=== PATIENT | male | born 1955 | race Caucasian/White ===

== ENCOUNTER → 2016-08-09 | Outpatient (CLI) | payer OTHER ==
[~2016-08-09] MED LIST: CRS10 PO; LISI-725 PO; METO-157 PO; REVEIWED
[2016-08-09 12:23] LABS: BASO % 0.5 %; BASO ABS # 0.02 K/uL (0-0.2); COMPLETE YES; EOS % 5.7 %; HEMATOCRIT 39.7 % (42-52); IG% 0.5 %; LYMPH % 32.8 %; LYMPH ABS # 1.44 K/uL (1.2-3.4); MEAN CELL VOLUME 90.8 fL (80-100); MEAN CORPUSCULAR HEMOGLOBIN 30.4 pg (25-34); MEAN CORPUSCULAR HGB CONC 33.5 g/dl (32-36); MEAN PLATELET VOLUME 11.1 fL (7.4-10.4); NEUT % 50.5 %; PLATELET COUNT 184 K/uL (130-400); RED BLOOD COUNT 4.37 M/uL (4.7-6.1); WHITE BLOOD COUNT 4.39 K/uL (4.8-10.8)
[2016-08-09 12:30] LABS: ALT/SGPT 76 U/L (12-78); BLOOD UREA NITROGEN 16 mg/dl (7-18); BUN/CREATININE RATIO 16.1 (10-20); CALCIUM 9.1 mg/dl (8.5-10.1); CARBON DIOXIDE 26 mmol/L (21-32); CHLORIDE 105 mmol/L (98-107); CHOLESTEROL 273 mg/dl (0-200); CREATININE 0.98 mg/dl (0.60-1.40); GLUCOSE 118 mg/dl (70-99); POTASSIUM 3.6 mmol/L (3.5-5.1); SODIUM 142 mmol/L (136-145)
[2016-08-09 12:35] LABS: ALB/GLOB RATIO 1.2 (0.9-2); ALKALINE PHOSPHATASE 89 U/L (45-117); AST/SGOT 55 U/L (15-37); CHOLESTEROL/HDL RATIO 4.7; HDL CHOLESTEROL 58 mg/dl; LDL CHOLESTEROL CALCULATED 143 mg/dl; PROSTATE SPECIFIC ANTIGEN 0.499 ng/ml (0.000-4.000); TRIGLYCERIDES 359 mg/dl (0-150); VERY LOW DENSITY LIPOPROT CALC 72 mg/dl
[2016-08-09 13:10] LABS: ESTIMATED AVERAGE GLUCOSE 111 mg/dl; HA1C FLAG Normal (Normal)
== END | disposition home or self-care (01) ==
LOC: C.LABBFT 10:36
PROVIDERS: ATTEND Internal Medicine
DX: I10 Essential (primary) hypertension (principal); E78.00 Pure hypercholesterolemia, unspecified; R73.01 Impaired fasting glucose; Z12.5 Encounter for screening for malignant neoplasm of prostate; D64.9 Anemia, unspecified

== ENCOUNTER → 2017-08-08 | Outpatient (CLI) | payer OTHER ==
[2017-08-08 16:56] LABS: BASO % 0.4 %; BASO ABS # 0.02 K/uL (0-0.2); EOS ABS # 0.34 K/uL (0-0.5); HEMATOCRIT 40.5 % (42-52); HEMOGLOBIN 13.8 g/dL (14.0-18.0); IG# 0.02 K/uL (0.00-0.02); LYMPH % 22.5 %; LYMPH ABS # 1.28 K/uL (1.2-3.4); MEAN CELL VOLUME 89.8 fL (80-100); MEAN CORPUSCULAR HEMOGLOBIN 30.6 pg (25-34); MEAN CORPUSCULAR HGB CONC 34.1 g/dl (32-36); MEAN PLATELET VOLUME 11.1 fL (7.4-10.4); MONO % 8.8 %; NEUT % 61.9 %; NEUT ABS # 3.54 K/uL (1.4-6.5); PLATELET COUNT 198 K/uL (130-400); RED CELL DISTRIBUTION WIDTH CV 12.7 % (11.5-14.5); RED CELL DISTRIBUTION WIDTH SD 41.7 fL (36.4-46.3)
[2017-08-08 17:36] LABS: ALBUMIN 3.8 gm/dl (3.4-5.0); ALT/SGPT 40 U/L (12-78); AST/SGOT 24 U/L (15-37); BLOOD UREA NITROGEN 16 mg/dl (7-18); CALCIUM 9.8 mg/dl (8.5-10.1); CARBON DIOXIDE 27 mmol/L (21-32); CHOLESTEROL 202 mg/dl (0-200); CREATININE 1.03 mg/dl (0.60-1.40); GLUCOSE 113 mg/dl (70-99); POTASSIUM 4.2 mmol/L (3.5-5.1); SODIUM 137 mmol/L (136-145)
[2017-08-08 17:42] LABS: ALKALINE PHOSPHATASE 63 U/L (45-117); LDL CHOLESTEROL CALCULATED 103 mg/dl; TOTAL PROTEIN 7.7 gm/dl (6.4-8.2)
[2017-08-09 07:56] LABS: HEMOGLOBIN A1C 5.8 % (4.5-5.6)
== END | disposition home or self-care (01) ==
LOC: C.LABBFT 11:22
PROVIDERS: ATTEND Internal Medicine
DX: Z12.5 Encounter for screening for malignant neoplasm of prostate (principal); I10 Essential (primary) hypertension; E78.00 Pure hypercholesterolemia, unspecified; R73.01 Impaired fasting glucose

== ENCOUNTER 2019-10-07 20:02 | Inpatient (IN) ==
--- NOTE | 2019-10-07 21:01 | History & Physical Report ---
Date of Service October 07, 2019 Assessment & Plan (1) Acute on chronic renal insufficiency: Admit to PCU on telemetry, Vital signs every 4 hours, BNP, TSH, CBC CMP pending Replenish electrolytes as needed. Avoid taking NSAIDs and other nephrotoxic agents. Stop lisinopril and hydrochlorothiazide due to worsening renal function. Ultrasound of bilateral kidneys are pending. Consult nephrology. Continue monitoring creatinine closely. Started gentle IV fluid hydration for only 1 L at 80 cc/h normal saline. DVT prophylaxis SCDs and teds, patient is ambulatory. Full code Present on Admission?: Yes (2) Hypertension: Stop lisinopril and hydrochlorothiazide due to worsening renal function. Started hydralazine 10 mg p.o. 4 times daily as needed for elevated blood pressure systolic over 160 and diastolic over 90. Monitor blood pressure every 4 hours as per unit. Heart healthy low-sodium diet. TTE pending. EKG pending. Present on Admission?: Yes (3) Anemia: Hemoglobin 10.5 and hematocrit 31.3. Could be megaloblastic anemia since MPV in the upper limits 10.8 versus mixed with chronic renal insufficiency. Iron study pending. Patient never had colonoscopy done. Would recommend colonoscopy as an outpatient after discharge. Fecal occult blood pending. Present on Admission?: Yes (4) Gout: Stable at this time. Continue allopurinol 100 mg p.o. daily Present on Admission?: Yes History of Present Illness Chief Complaint: Acute on chronic kidney insufficiency Primary Care Provider: Anthony Figueredo MD The patient is a 64 years old male with past medical history of gout, upper back injury, uncontrolled hypertension and CKD stage III that has been worsening since September 2019. Prior to September 2019 there are only 2 measurements of creatinine going back to 2018 which are pretty much upper limit of normal and worsening since August 08, 2017. Patient reports no complaint. He was sent as a direct admit from his PCP office who was concerned about patient worsening kidney function and/or failure. Reports never being smoker. He also reports that he was taking lots of NSAIDs for his back pain. Patient denies fever, chills, headache, chest pain, shortness of breath, abdominal pain, frequency, urgency. Labs are reviewed from October 06, 2019 which shows sodium 08/04/1933, potassium 4.1, chloride 107, carbon dioxide 19, anion gap 11, BUN 86, creatinine 4.97, GFR 11.6, glucose 145, urine which is clear and negative for nitrates bilirubin urobilinogen leukocyte esterase and protein. Chest x-rays are done and they show cardiomediastinal and hilar silhouette are within normal limits no pneumothorax, pleural effusion, focal airspace consolidation or overt pulmonary edema bones of the chest appear grossly intact. No acute process. Today labs are pending. Decision was made to admit patient for worsening chronic kidney insufficiency to PCU on telemetry and for further evaluation and treatment. Allergies Allergy/AdvReac Type Severity Reaction Status Date / Time No Known Allergies Allergy Mild Verified 09/13/19 12:18 Home Medications Home Medications Medication Instructions Recorded Confirmed Type hydrochlorothiazide 25 mg tablet 25 mg PO DAILY #90 tab 04/21/19 10/01/19 Rx lisinopril 30 mg tablet 30 mg PO DAILY #90 tab 06/11/19 10/01/19 Rx allopurinol 100 mg tablet 100 mg PO DAILY #30 tab 08/16/19 10/01/19 Rx atorvastatin 80 mg tablet 80 mg PO QPM #90 tab 09/02/19 10/01/19 Rx hydrocodone 5 mg-acetaminophen 325 2 tab PO DAILY PRN #15 tab 09/15/19 10/01/19 Rx mg tablet ciprofloxacin HCl 250 mg tablet 250 mg PO BID #14 tab 10/01/19 10/01/19 Rx methylprednisolone 4 mg tablets in 4 mg PO .as directed #21 ea 10/04/19 Rx a dose pack tramadol 50 mg tablet 50 mg PO TID PRN #60 tab 10/04/19 Rx Past Med/Surg History Medical History Gout attack Gout of foot Olecranon bursitis, right elbow Family History Mother Coronary heart disease Hypertension Father Coronary heart disease Brother Migraine headache Denies family history of Ovarian cancer Prostate cancer Myocardial infarction Breast cancer Colonic polyp Social History Preferred Language: Kuwaiti Communication Ability: Effective Visual Impairment: No Limitations Hearing Ability: Normal Claims Coordinator Required: No Beliefs That Will Affect Care: None marital status: Current Living Situation: Alone current occupational status: employed Feels Safe at Home: Yes Safety Concerns: Feels Safe At This Time Smoking Status: Former smoker Do You Dip or Chew Tobacco: No ; Second Hand Exposure: No ; Tobacco Cessation Education Requested by Patient: No Hx Alcohol Use: No Hx Substance Use: No Dental Care, Regularly: Yes Physical Activity Frequency: 3-4 Times per Week Review of Systems Review of Systems: All systems reviewed & are unremarkable except as noted in HPI & below Physical Exam Constitutional: WD/WN, vitals as above well developed, well nourished and + thin Eyes: PERRL, conjunctivae normal, anicteric sclerae ENMT: external ear and nose normal, oropharynx normal Neck: trachea midline, no thyromegaly Respiratory: normal respiratory effort, lungs clear to auscultation Cardiovascular: Rate/Rhythm: regular rate and regular rhythm Heart Sounds: normal S1 and normal S2 Vessels: dorsalis pedis pulses present Gastrointestinal (Abdomen): normal bowel sounds, soft, nontender, no hepatosplenomegaly Musculoskeletal: no cyanosis or clubbing, extremities motor strength 5/5 Skin: no rashes, warm and dry Neurologic: Complains of middle back pain which is chronic in nature. Psychiatric: A+Ox3, euthymic affect Lymphatic: no cervical or axillary lymphadenopathy Code Status & VTE Plan Code Status Full code VTE Prophylaxis Plan VTE Prophylaxis will be ordered: Yes PG Care Time/CCT Total # of Minutes Spent Total Time Spent with Patient: Total time spent is greater than 50% in coordination of care (as documented) at patient's floor/unit and/or counseling patient: Coding Level of Care Code 30271 Initial Inpt Care Lvl 3 Diagnoses Acute on chronic renal insufficiency N28.9; N18.9 Hypertension I10 Anemia D64.9 Gout M10.9
[2019-10-07] MEDS ORDERED: SODIUM CHLORIDE 0.9% 1000ML 1,000 ML IV SCH (21:09)
[2019-10-07] MEDS ORDERED: MAGNESIUM HYDROXIDE SUSP 30 ML UDC PO PRN (21:09)
[2019-10-07] MEDS ORDERED: TRAMADOL HCL 50 MG TABLET PO PRN (21:09)
[2019-10-07] MEDS ORDERED: ACETAMINOPHEN 325 MG TAB PO PRN (21:09)
[2019-10-07] MEDS ORDERED: BETAMETH SOD PHOS/ACETATE IA 6 MG/ML IA SCH (21:09)
[2019-10-07] MEDS ORDERED: ALUMINUM/MAGNESIUM SUSP 30 ML UDC PO PRN (21:09)
[2019-10-07] MEDS ORDERED: POLYETHYLENE (MIRALAX) 17 GM PACK PO PRN (21:09)
[2019-10-07] MEDS ORDERED: HydrALAZINE 10 MG TAB PO PRN (21:09)
--- NOTE | 2019-10-07 21:25 | XRay Report ---
XR chest 1V portable HISTORY: 64 years-old Male survelance no acute chest complaints. Reported kidney disease. COMPARISON: Chest radiographs 07/22/2010 TECHNIQUE: Portable AP view of the chest FINDINGS: Cardiomediastinal and hilar silhouettes are within normal limits. No pneumothorax, pleural effusion, focal airspace consolidation or overt pulmonary edema. Bones of the chest appear grossly intact. IMPRESSION: No acute process. ACT 112: Negative or not required by law. The above report was generated using voice recognition software. It may contain grammatical, syntax o r spelling errors. Results electronically sent 10/07/2019 9:24 PM to: Andre Padilla MD Electronically signed by: Eloy Muñoz M.D. 10/07/2019 9:24 PM
[2019-10-07 21:39] LABS: Hematocrit (blood only) 31.3 % (42-52); Hemoglobin 10.5 g/dL (14.0-18.0); Immature Granulocytes # (auto) 0.02 K/uL (0.00-0.02); Immature Granulocytes % (auto) 0.2 %; Lymphocytes # (auto) 0.56 K/uL (1.2-3.4); Mean Corpuscular Hemoglobin 30.1 pg (25-34); Mean Corpuscular Volume 89.7 fL (80-100); Mean Platelet Volume 10.8 fL (7.4-10.4); Monocytes # (auto) 0.64 K/uL (0.11-0.59); Monocytes % (auto) 6.9 %; Neutrophils # (auto) 8.12 K/uL (1.4-6.5); Neutrophils % (auto) 86.9 %; Platelet Count 317 K/uL (130-400); RDW Coefficient of Variation 14.3 % (11.5-14.5); Red Blood Count 3.49 M/uL (4.7-6.1); White Blood Count 9.34 K/uL (4.8-10.8)
[2019-10-07] MEDS: ATORVASTATIN 40 MG TAB PO SCH (21:56)
[2019-10-07] MEDS: METOPROLOL TARTRATE 25 MG TAB PO SCH (22:01)
[2019-10-07 22:07] LABS: Alanine Aminotransferase 20 U/L (12-78); Albumin Globulin Ratio 1.1 (0.9-2); Albumin Level 4.2 gm/dl (3.4-5.0); Alkaline Phosphatase 69 U/L (45-117); Aspartate Aminotransferase 14 U/L (15-37); BUN Creatinine Ratio 17.2 (10-20); Bilirubin,Total 0.3 mg/dl (0.2-1); Blood Urea Nitrogen 85 mg/dl (7-18); Calcium 9.5 mg/dl (8.5-10.1); Carbon Dioxide 20 mmol/L (21-32); Chloride 107 mmol/L (98-107); Creatinine Clr Calc Pharmacy 15.7 ml/min; Est GFR (African American) 13.2; Est GFR (Non-African American) 11.4; Globulin 3.7 gm/dl (2.5-4.0); Glucose 120 mg/dl (70-99); NT Pro B Type Natriuretic Pept 1153 pg/ml (0-900); Phosphorus 5.9 mg/dl (2.5-4.9); Potassium 4.5 mmol/L (3.5-5.1); Sodium 138 mmol/L (136-145); Total Protein 7.9 gm/dl (6.4-8.2); Troponin I < 0.015 ng/ml (0-0.045)
[2019-10-07 22:30] LABS: Mean Corpuscular Hgb Conc 33.5 g/dL (32-36)
[2019-10-07] MEDS ORDERED: LORazepam 0.5 MG/1 ML VIAL IV STA (22:31)
[2019-10-07] MEDS ORDERED: FUROSEMIDE 60 MG in SYRINGE 0 ML IV ONE (22:38)
[2019-10-07 22:46] LABS: Reticulocyte % 0.8 % (0.5-2.0); Reticulocytes # 0.03 10^6/uL (0.02-0.10)
--- NOTE | 2019-10-07 22:46 | Ultrasound Report ---
US renal/blad retro comp HISTORY: 64 years-old Male acute to CKD stage 4 acute on chronic kidney disease COMPARISON: None TECHNIQUE: Multiple real-time sonographic images of the kidneys and urinary bladder were obtained ass essing grayscale appearance and color flow FINDINGS: Right kidney measures 13.3 x 6.5 x 5.0 cm. Moderate hydroureteronephrosis. No obstructing stone or le viridiana identified. No shadowing calculi. Cyst of the lower pole right kidney measures 1.9 cm. Mildly in creased echogenicity of the renal parenchyma. Left kidney measures 12.3 x 4.5 x 4.2 cm and demonstrates moderate to severe hydroureteronephrosis. N o obstructing stone or lesion identified. Increased echogenicity of the renal parenchyma. Marked distention of the urinary bladder measures up to 21.8 cm. Urinary bladder wall thickening and trabeculation is also noted. Prevoid volume of 1818 mL. Post void volume of 1446 mL. IMPRESSION: 1. Bilateral hydroureteronephrosis, left greater than right with marked dilation of the urinary bladd er. Additionally, there is a large amount of post void residual with findings suggestive of urinary b ladder outlet obstruction. Urinary bladder decompression with catheterization may be needed. 2. Echogenic appearance of the bilateral kidneys suggests chronic medical renal disease. 3. No renal calculi identified. ACT 112: Negative or not required by law. The above report was generated using voice recognition software. It may contain grammatical, syntax o r spelling errors. Results electronically sent 10/07/2019 10:44 PM to: Andre Padilla MD Electronically signed by: Eloy Muñoz M.D. 10/07/2019 10:44 PM
[2019-10-07 23:12] LABS: Iron 66 mcg/dl (35-175); Total Iron Binding Capacity 401 mcg/dl (250-450)
--- NOTE | 2019-10-08 01:20 | Communication Note ---
Date of Service: October 08, 2019 S: I was contacted to assess the patient approximately 10:15 PM. The patient was a direct admit from primary care provider for elevated creatinine concerns for worsening kidney function or progression to acute renal failure. Labs from October 05 demonstrated creatinine of 4.97, admission labs demonstrated a creatinine Of 5.04, with a potassium of 4.5. Initially the patient was hypertensive to the 190s over 110s. Given that this hospital does not have CRRT available in the evening, nursing wanted me to evaluate the patient's stability and whether or not transfer was appropriate. The patient did not appear in acute distress however was anxious. O: General: anxious/malaise Cards: RRR/no MRG/NL S1-S2/1+ pedal edema/denies calf tenderness Respiratory: CTA BL A/P #ARF The patient being oliguric, with increasing creatinine, and a history of chronic kidney disease is certainly concerning for progression to acute renal failure and his labs appear to be consistent with that. There is no inciting cause for his abrupt change in renal function this will need to be further worked up by the day team. The working theory is NSAID overexposure. Ideally I would like to avoid transferring the patient to another facility to that effect we will attempt to stabilize him overnight and monitor his lab values closely. Should his creatinine continue to rise, he developed significant hyperkalemia, he can profoundly fluid overloaded, or develop pulmonary edema these would all be indications to arrange for transfer to another facility for emergent dialysis. To that effect we will attempt to improve his urine output, and stabilize his potassium. Current volume status is acceptable, patient does not appear volume overloaded, he is currently status post 1 L of fluids that ran at 80 mL/h. Place Brennan, strict monitoring of I's and O's Administer one-time dose 60 mg Lasix BMP every 4 hours Follow-up urine output in 2 hours if no improvement plan to double the dose of Lasix and consider addition of thiazide diuretic Follow-up creatinine/potassium if continuing to trend in the wrong direction to consider transfer to outside #Hypertension Given that the patient does not appear overtly fluid overloaded, I suspect a great deal of his hypertension is secondary to anxiety, especially given it has been resistant to PRN medication. To that extent we will treat his anxiety with PRN Ativan. 0.5 mg Ativan IV now 0.5 mg Ativan IV every 3 hours as needed *Update 01:14 10/08/19* #ARF 2/2 to suspected obstruction Nursing updated me that they gave the Lasix at [address] They had a bit of trouble getting the Brennan in. Upon gaining access he immediately drained 2450 mL, and prior to updating me drained another liter for a total of 3475 L since the Brennan was then. He also had improvement in his blood pressure to 155/91, current labs are pending, no EKG changes. Renal ultrasound demonstrated bilateral hydronephrosis, left greater than right with marked dilation of the urinary bladder. Findings suggestive of urinary bladder outlet obstruction, identification of chronic medical renal disease. This provides credence to the working theory that his acute renal failure is secondary to a suspected bladder outlet obstruction will defer to urology for further diagnostic evaluation. The pain from bladder distention may also been the source of his elevated blood pressure. For now we will make him n.p.o., monitor his labs, and monitor his urine output closely. Make n.p.o. Monitor BMP -To consider d/c every 4 hours BMP pending lab results Monitor urine output Wili Myers MD PGY 2, FCM This chart was completed utilizing [employer] voice recognition software. Grammatical errors, random word insertions, pronoun errors, and in complete sentences are an occasional consequence of the system. Any questions or concerns about the content, text, or information contained within the body of this dictation should be addressed directly to the physician for clarification. Resident Activity Tracking Resident Involvement: Resident Care Provided Care Provided: Adult [facility]
[2019-10-08 01:33] LABS: BUN Creatinine Ratio 17.6 (10-20); Creatinine Clr Calc Pharmacy 15.8 ml/min; Est GFR (African American) 13.3; Est GFR (Non-African American) 11.5; Potassium 4.4 mmol/L (3.5-5.1)
[2019-10-08 01:58] LABS: Appearance Urine Clear (Clear); Bacteria Urine Automated Negative (Negative); Bilirubin Urine Negative (Negative); Blood Urine Trace (Negative); Cast Urine Automated 0 /lpf (0-5); Color Urine Yellow; Epithelial Cell Urine Auto 0-5 /lpf (0-5); Glucose Urine UA Negative (Negative); Ketones Urine Negative (Negative); Leukocyte Esterase Urine Negative (Negative); Nitrite Urine Negative (Negative); Protein Urine Negative (Negative); RBC Urine Automated 0-4 /hpf (0-4); Specific Gravity Urine 1.011 (1.000-1.030); Urobilinogen Urine Negative (Negative); WBC Urine Automated 0 /hpf (0-5); pH Urine 5.5 (4.5-7.5)
[2019-10-08] MEDS: LORazepam 0.5 MG/1 ML VIAL IV PRN ×3 (04:37→20:08)
[2019-10-08 06:34] LABS: Basophils # (auto) 0.01 K/uL (0-0.2); Basophils % (auto) 0.1 %; Eosinophils # (auto) 0.01 K/uL (0-0.5); Eosinophils % (auto) 0.1 %; Hematocrit (blood only) 33.6 % (42-52); Immature Granulocytes # (auto) 0.03 K/uL (0.00-0.02); Immature Granulocytes % (auto) 0.4 %; Lymphocytes # (auto) 1.43 K/uL (1.2-3.4); Lymphocytes % (auto) 17.1 %; Mean Corpuscular Hemoglobin 29.3 pg (25-34); Mean Corpuscular Hgb Conc 32.7 g/dL (32-36); Mean Corpuscular Volume 89.4 fL (80-100); Mean Platelet Volume 11.2 fL (7.4-10.4); Monocytes # (auto) 1.01 K/uL (0.11-0.59); Monocytes % (auto) 12.1 %; Neutrophils # (auto) 5.87 K/uL (1.4-6.5); Neutrophils % (auto) 70.2 %; Platelet Count 351 K/uL (130-400); RDW Coefficient of Variation 14.4 % (11.5-14.5); Red Blood Count 3.76 M/uL (4.7-6.1); White Blood Count 8.36 K/uL (4.8-10.8)
[2019-10-08 06:44] LABS: Albumin Globulin Ratio 1.1 (0.9-2); Albumin Level 4.1 gm/dl (3.4-5.0); BUN Creatinine Ratio 18.4 (10-20); Bilirubin,Total 0.3 mg/dl (0.2-1); Calcium 9.8 mg/dl (8.5-10.1); Creatinine Clr Calc Pharmacy 17.3 ml/min; Est GFR (Non-African American) 13.8; Globulin 3.8 gm/dl (2.5-4.0); Potassium 3.6 mmol/L (3.5-5.1); Total Protein 7.9 gm/dl (6.4-8.2)
[2019-10-08] MEDS ORDERED: PERFLUTREN LIPID MICROSPHERE (DEFINITY) IV ONE (07:07)
[2019-10-08 07:18] LABS: Estimated Average Glucose 120 mg/dl; Hemoglobin A1C 5.8 % (4.5-5.6)
--- NOTE | 2019-10-08 08:03 | Urology Consultation ---
Date of Consultation October 08, 2019 Assessment & Plan (1) Urinary retention: (2) RACHID (acute kidney injury): 64 yo M admitted with acute kidney injury in the setting of bladder outlet obstruction and urinary retention. - Reviewed case with Dr. Keith, some concern for post-obstructive diuresis - Creatinine 5.00 --> 4.30, K 4.4 --> 3.6 - Monitor BP closely - Monitor creatinine and electrolytes very closely, repeat BMP at 1200 - order placed - Nephrology consult in place, appreciate recommendations - Maintain Brennan catheter for at least 2 weeks to allow bladder rest and max drainage - Recommend start Flomax at HS - PSA up to date and reviewed, reassuring - Discussed outpatient follow-up with cystoscopy and BELA - Will continue to follow History of Present Illness Reason for Consultation: RACHID, bladder outlet obstruction Attending Physician: Jr Chase, History of Present Illness 64 yo M with past medical history of hypertension and gout admitted with acute on chronic renal failure in the setting of obstructive uropathy. New consultation for RACHID and bladder outlet obstruction. Patient was a direct admission from PCP due to RACHDI, creatinine on lab work was 4.97 on 10/06/19. On admission, creatinine 5.04. Patient admitted for further evaluation and treatment of worsening RACHID. Chart review: Afebrile Cr - 5.00 --> 4.30 (10/07) K - 4.4 --> 3.6 (10/07) WBC - 8.36 Hgb - 11.0 UA - trace blood, negative nitrites and bacteria Brennan catheter placed 10/06 with return of 2450 mL immediately, drained another 1025 mL shortly afterward Imaging: Renal US IMPRESSION: 1. Bilateral hydroureteronephrosis, left greater than right with marked dilation of the urinary bladder. Additionally, there is a large amount of post void residual with findings suggestive of urinary bladder outlet obstruction. Urinary bladder decompression with catheterization may be needed. 2. Echogenic appearance of the bilateral kidneys suggests chronic medical renal disease. 3. No renal calculi identified. Patient awake and in bed. No pain at this time. Reports mild right flank pain yesterday, but now resolved. No abdominal, suprapubic, or flank pain. Tolerating Brennan catheter with minimal bother. Some mild pain at tip of penis. Denies bladder spasm. Brennan catheter intact, patent and draining clear light red urine, no clots noted. No f/c/n/v. Pt reports worsening urinary function over the last 3 months. He notes weaker stream, hesitancy, dysuria, occasional dribbling, and feeling of incomplete bladder emptying with need to sit on toilet at times as well as double voiding. Reports nocturia x 3 at baseline. No hematuria. Has never seen a urologist in the past. No history of BPH medication. Denies family history of prostate, bladder, or kidney cancer. PSA screening on 09/20/19 was 0.775. Denies any additional acute urological concerns at this time. Allergies Allergy/AdvReac Type Severity Reaction Status Date / Time No Known Allergies Allergy Mild Verified 09/13/19 12:18 Home Medications Home Medications Medication Instructions Recorded Confirmed Type hydrochlorothiazide 25 mg tablet 25 mg PO DAILY #90 tab 04/21/19 10/01/19 Rx lisinopril 30 mg tablet 30 mg PO DAILY #90 tab 06/11/19 10/01/19 Rx allopurinol 100 mg tablet 100 mg PO DAILY #30 tab 08/16/19 10/01/19 Rx atorvastatin 80 mg tablet 80 mg PO QPM #90 tab 09/02/19 10/01/19 Rx hydrocodone 5 mg-acetaminophen 325 2 tab PO DAILY PRN #15 tab 09/15/19 10/01/19 Rx mg tablet ciprofloxacin HCl 250 mg tablet 250 mg PO BID #14 tab 10/01/19 10/01/19 Rx methylprednisolone 4 mg tablets in 4 mg PO .as directed #21 ea 10/04/19 Rx a dose pack tramadol 50 mg tablet 50 mg PO TID PRN #60 tab 10/04/19 Rx Patient History Medical History Gout attack Gout of foot Olecranon bursitis, right elbow Family History Mother Coronary heart disease Hypertension Father Coronary heart disease Brother Migraine headache Denies family history of Ovarian cancer Prostate cancer Myocardial infarction Breast cancer Colonic polyp Social History Preferred Language: Ethiopian Communication Ability: Effective Visual Impairment: No Limitations Hearing Ability: Normal 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 Beliefs That Will Affect Care: None marital status: Current Living Situation: Alone current occupational status: employed Feels Safe at Home: Yes Safety Concerns: Feels Safe At This Time Smoking Status: Former smoker Do You Dip or Chew Tobacco: No ; Second Hand Exposure: No ; Tobacco Cessation Education Requested by Patient: No Hx Alcohol Use: No Hx Substance Use: No Dental Care, Regularly: Yes Physical Activity Frequency: 3-4 Times per Week Review of Systems Constitutional: as per Subjective / HPI Gastrointestinal: as per Subjective / HPI Genitourinary: + as per Subjective / HPI Physical Exam Constitutional: well developed, well nourished, + thin, cooperative and comfortable; no acute distress Respiratory: normal respiratory effort and able to speak in complete sentences; no respiratory distress and no labored breathing Cardiovascular: Extremities: no pedal edema Gastrointestinal (Abdomen): Inspection/Auscultation: abdomen normal to inspection; abdomen not distended Percussion/Palpation: abdomen soft; abdomen nontender and no guarding Neurologic: moves all extremities and awake Psychiatric: Orientation: alert, oriented x 3 and cooperative Genitourinary: no CVA tenderness Brennan catheter intact, patent, and draining clear light red urine, no clots noted Results & Data Vital Signs (Past 12 Hours) Vital Signs Temp Pulse Resp BP BP Pulse Ox 10/08/19 07:34 36.8 C 79 19 163/103 H 168/108 H 99 10/08/19 04:27 36.9 C 83 17 152/99 H 99 10/08/19 00:54 155/91 H 10/08/19 00:02 37.1 C 69 21 183/102 H 98 10/07/19 20:51 37.0 C 102 H 22 190/111 H 98 PG Care Time/CCT Total # of Minutes Spent Total Time Spent with Patient: Total time spent is greater than 50% in coordination of care (as documented) at patient's floor/unit and/or counseling patient: Coding Level of Care Code 42555 Inpt Consult Level 3 Diagnoses Urinary retention R33.9 RACHID (acute kidney injury) N17.9
[2019-10-08] MEDS: allopurinoL 100 MG TAB PO SCH (08:59)
[2019-10-08] MEDS: ASPIRIN 81 MG ECTAB PO SCH (08:59)
[2019-10-08] MEDS: METOPROLOL TARTRATE 25 MG TAB PO SCH ×2 (08:59→20:06)
--- NOTE | 2019-10-08 09:47 | Nephrology Consultation ---
Date of Consultation October 08, 2019 Assessment & Plan (1) RACHID (acute kidney injury): Keenan admitted to the hospital with acute kidney injury, worsening last 1 month, cr 5.0. UA normal, USG with b/l hydro and bladder outlet obstruction, has Beach catheter. Rachid secondary to obstructive uropathy. Overall feeling fine, electrolyte acceptable. Expect renal function to slowly start to improve with release of BROCK. --DC IV fluid --urgent urology evaluation --continue to hold Lisinopril, HCTZ, if BP remained elevated, start Amlodipine 5 mg /d and increase as needed --monitor renal function daily renal panel --iron study Will follow Thank you for allowing me to participate in your patient's care. It was a pleasure to see Keenan (2) Hypertension: (3) Hydronephrosis: History of Present Illness Reason for Consultation: RACHID Attending Physician: Jr Chase, History of Present Illness Keenan Garcia is a 64-year-old gentlemen with past medical history significant for HTN, DM admitted to the hospital with RACHID found on out pt lab. Nephrology consult was requested to manage acute kidney injury. Electronic medical records including labs and imaging are reviewed in detail during patient's visit. Keenan was admitted to the hospital on 10/07/2019 after out pt lab on 10/06/19 showed RACHID with cr 5.0. Lab on 09/20/19 initially showed RACHID when cr was 2.2. As he was otherwise asymptomatic, lab was repeated and found to have worsening of renal function. B/L cr was 1.1-1.3. UA was unremarkable. He was otherwise f eeling fine. He reports noticing some difficulty voiding over last few months but no urinary retention. Appetite and po intake was fine. Denied recent NSAID use. No h/o volume depletion. Since admission he ahs been on IV fluid. Lisinopril and hCTZ has been on hold and BP has been running high. Renal USG this am showed B/L hydronephrosis. Had > 6 L UO after beach catheter placement. No family h/o CKD, ESRD. 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 HTN, previously well controlled on Lisinopril, HCTZ Clinically he feels well, denied any symptoms. Allergies Allergy/AdvReac Type Severity Reaction Status Date / Time No Known Allergies Allergy Mild Verified 09/13/19 12:18 Home Medications Home Medications Medication Instructions Recorded Confirmed Type hydrochlorothiazide 25 mg tablet 25 mg PO DAILY #90 tab 04/21/19 10/01/19 Rx lisinopril 30 mg tablet 30 mg PO DAILY #90 tab 06/11/19 10/01/19 Rx allopurinol 100 mg tablet 100 mg PO DAILY #30 tab 08/16/19 10/01/19 Rx atorvastatin 80 mg tablet 80 mg PO QPM #90 tab 09/02/19 10/01/19 Rx hydrocodone 5 mg-acetaminophen 325 2 tab PO DAILY PRN #15 tab 09/15/19 10/01/19 Rx mg tablet ciprofloxacin HCl 250 mg tablet 250 mg PO BID #14 tab 10/01/19 10/01/19 Rx methylprednisolone 4 mg tablets in 4 mg PO .as directed #21 ea 10/04/19 Rx a dose pack tramadol 50 mg tablet 50 mg PO TID PRN #60 tab 10/04/19 Rx Patient History Medical History Gout attack Gout of foot Olecranon bursitis, right elbow Family History Mother Coronary heart disease Hypertension Father Coronary heart disease Brother Migraine headache Denies family history of Ovarian cancer Prostate cancer Myocardial infarction Breast cancer Colonic polyp Social History Preferred Language: Kenyan Communication Ability: Effective Visual Impairment: No Limitations Hearing Ability: Normal 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 Beliefs That Will Affect Care: None marital status: Current Living Situation: Alone current occupational status: employed Feels Safe at Home: Yes Safety Concerns: Feels Safe At This Time Smoking Status: Former smoker Do You Dip or Chew Tobacco: No ; Second Hand Exposure: No ; Tobacco Cessation Education Requested by Patient: No Hx Alcohol Use: No Hx Substance Use: No Dental Care, Regularly: Yes Physical Activity Frequency: 3-4 Times per Week Review of Systems Review of Systems: All systems reviewed & are unremarkable except as noted in HPI & below Physical Exam Constitutional: WD/WN, vitals as above well developed and well nourished; no acute distress Eyes: PERRL, conjunctivae normal, anicteric sclerae ENMT: external ear and nose normal, oropharynx normal Ears: no hearing impairment Neck: trachea midline Respiratory: normal respiratory effort, lungs clear to auscultation no cough Auscultation: no crackles, no rales and no wheezes Cardiovascular: RRR, no murmur, no edema Gastrointestinal (Abdomen): normal bowel sounds, soft, nontender, no hepatosplenomegaly Percussion/Palpation: abdomen nontender, no guarding and abdomen not rigid Musculoskeletal: Extremities: extremities normal to inspection Gait: normal gait Skin: no rashes, warm and dry Neurologic: moves all extremities and awake Psychiatric: A+Ox3, euthymic affect Results & Data Vital Signs (Past 12 Hours) Vital Signs Temp Pulse Pulse Resp BP BP Pulse Ox 10/08/19 07:34 36.8 C 79 19 163/103 H 168/108 H 99 10/08/19 07:30 75 10/08/19 04:27 36.9 C 83 17 152/99 H 99 10/08/19 00:54 155/91 H 10/08/19 00:02 37.1 C 69 21 183/102 H 98 PG Care Time/CCT Total # of Minutes Spent Total Time Spent with Patient: Total time spent is greater than 50% in coordination of care (as documented) at patient's floor/unit and/or counseling patient: Coding Level of Care Code 93684 Inpt Consult Level 5 Diagnoses RACHID (acute kidney injury) N17.9 Hypertension I10 Hydronephrosis N13.30
[2019-10-08 12:44] LABS: BUN Creatinine Ratio 19.7 (10-20); Calcium 9.6 mg/dl (8.5-10.1); Creatinine Clr Calc Pharmacy 18.5 ml/min; Est GFR (African American) 17.3; Est GFR (Non-African American) 14.9; Potassium 3.3 mmol/L (3.5-5.1)
--- NOTE | 2019-10-08 13:45 | Hospitalist Progress Note ---
Date of Service October 08, 2019 Assessment & Plan (1) RACHID (acute kidney injury): presented with Cr up to 5 this was due to post renal obstruction, bladder outlet obstruction, likely due to enlarged prostate Cr coming down, was 4.0 this afternoon making excellent urine, 6 liters since beach placed continue to monitor BMP closely, check in the morning would expect continued drop in Cr with the relief of the obstruction nephrology following (2) Hypertension: Stop lisinopril and hydrochlorothiazide due to worsening renal function. Started hydralazine 10 mg p.o. 4 times daily as needed for elevated blood pressure systolic over 160 and diastolic over 90. BP stable will resume above medications once renal function recovers (3) Anemia: Hb stable follow as outpatient (4) Gout: Stable at this time. Continue allopurinol 100 mg p.o. daily (5) Hydronephrosis: due to bladder obstruction relieved with beach catheter (6) Urinary retention: new issue, says that he has been having difficulty for a few months got much worse recently denies being in a great deal of abdominal discomfort despite the bladder distension and hydronephrosis will keep beach for 14 days Flomax follow up with urology in the office for voiding trial (7) Hypokalemia: likely related to renal failure, poor K intake will give 40mEq PO this afternoon, repeat tomorrow (8) Muscle cramps: likely due to low K, will replace and look for improvement in symptoms Admission and Anticipated Discharge Date Admission Date: October 07, 2019 Anticipated date of discharge: 10/09/19 Subjective patient feeling much better after catheter placed over night he says he was having difficulty urinating for a few months, progressive problem noted to have slow stream, hesitancy which were new symptoms said that he had a PSA with Dr. Figueredo that was normal noted to have elevated Cr on routine lab work two weeks ago, instructed to stay well hydrated followed up and lab showed Cr was rising further Cr was 5 at the time of admission, renal US showed dilated bladder, bilateral hydronephrosis catheter placed last night, 6 liters of urine out thus far, of note he got a dose of Lasix last night repeat BMP today shows Cr is down to 4.0, K is 3.3 c/o muscle cramps eating okay I discussed with Dr. Rogers with nephrology I discussed with Dr. Nur with urology, keep beach in for 14 days Review of Systems Review of Systems: All systems reviewed & are unremarkable except as noted in HPI & below Constitutional: no fever Respiratory: no cough and no dyspnea Cardiovascular: no chest pain and no edema Gastrointestinal: no abdominal pain, no nausea, no vomiting, no constipation and no diarrhea/loose stools Genitourinary: + hematuria (urine in beach is herron colored, no clots); no flank pain Physical Exam Constitutional: WD/WN, vitals as above Eyes: PERRL, conjunctivae normal, anicteric sclerae ENMT: external ear and nose normal, oropharynx normal Neck: trachea midline, no thyromegaly Respiratory: normal respiratory effort, lungs clear to auscultation Cardiovascular: RRR, no murmur, no edema Gastrointestinal (Abdomen): normal bowel sounds, soft, nontender, no hepatosplenomegaly Musculoskeletal: no cyanosis or clubbing, extremities motor strength 5/5 Skin: no rashes, warm and dry Neurologic: patellar DTR's 2+ bilat, sensation intact and PERRL, EOMI, accommodation nl, no face palsy, no dysarthria Psychiatric: A+Ox3, euthymic affect Genitourinary: no CVA tenderness beach catheter Lymphatic: no cervical or axillary lymphadenopathy Results & Data ([facility]) Vital Signs (Past 12 Hours) Vital Signs Temp Pulse Pulse Resp BP BP Pulse Ox 10/08/19 11:33 36.6 C 78 18 140/98 99 10/08/19 07:34 36.8 C 79 19 163/103 H 168/108 H 99 10/08/19 07:30 75 10/08/19 04:27 36.9 C 83 17 152/99 H 99 Laboratory Results Laboratory Results - last 24 hr 10/07/19 10/07/19 10/07/19 21:20 21:20 21:20 WBC 9.34 RBC 3.49 L Hgb 10.5 L Hct 31.3 L MCV 89.7 MCH 30.1 MCHC 33.5 RDW Std Deviation 47.0 H RDW Coeff of [place] 14.3 Plt Count 317 MPV 10.8 H Immature Gran % (Auto) 0.2 Neut % (Auto) 86.9 Lymph % (Auto) 6.0 [place] % (Auto) 6.9 Eos % (Auto) 0.0 Baso % (Auto) 0.0 Reticulocyte % (Auto) Immature Gran # (Auto) 0.02 Neut # (Auto) 8.12 H Lymph # (Auto) 0.56 L [place] # (Auto) 0.64 H Eos # (Auto) 0.00 Baso # (Auto) 0.00 Reticulocyte # Sodium 138 Potassium 4.5 Chloride 107 Carbon Dioxide 20 L Anion Gap 11.0 BUN 85 H Creatinine 5.04 H* Est Cr Clr Drug Dosing 15.7 Est GFR ( Amer) 13.2 Est GFR (Non-Af Amer) 11.4 BUN/Creatinine Ratio 17.2 Glucose 120 H Estimat Average Glucose 120 Hemoglobin A1c 5.8 H Calcium 9.5 Phosphorus 5.9 H Iron TIBC Total Bilirubin 0.3 AST 14 L ALT 20 Alkaline Phosphatase 69 Troponin I < 0.015 NT-Pro-B Natriuret Pep 1153 H Total Protein 7.9 Albumin 4.2 Globulin 3.7 Albumin/Globulin Ratio 1.1 Triglycerides Cholesterol LDL Cholesterol, Calc VLDL Cholesterol, Calc HDL Cholesterol Cholesterol/HDL Ratio Folate TSH 3.720 Urine Color Urine Appearance Urine pH Ur Specific [place] Urine Protein Urine Glucose (UA) Urine Ketones Urine Blood Urine Nitrite Urine Bilirubin Urine Urobilinogen Ur Leukocyte Esterase Urine WBC (Auto) Urine RBC (Auto) U Hyaline Cast (Auto) U Epithel Cells (Auto) Urine Bacteria (Auto) 10/07/19 10/07/19 10/07/19 22:32 22:32 22:32 WBC RBC Hgb Hct MCV MCH MCHC RDW Std Deviation RDW Coeff of [place] Plt Count MPV Immature Gran % (Auto) Neut % (Auto) Lymph % (Auto) [place] % (Auto) Eos % (Auto) Baso % (Auto) Reticulocyte % (Auto) 0.8 Immature Gran # (Auto) Neut # (Auto) Lymph # (Auto) [place] # (Auto) Eos # (Auto) Baso # (Auto) Reticulocyte # 0.03 Sodium Potassium Chloride Carbon Dioxide Anion Gap BUN Creatinine Est Cr Clr Drug Dosing Est GFR ( Amer) Est GFR (Non-Af Amer) BUN/Creatinine Ratio Glucose Estimat Average Glucose Hemoglobin A1c Calcium Phosphorus Iron 66 TIBC 401 Total Bilirubin AST ALT Alkaline Phosphatase Troponin I NT-Pro-B Natriuret Pep Total Protein Albumin Globulin Albumin/Globulin Ratio Triglycerides Cholesterol LDL Cholesterol, Calc VLDL Cholesterol, Calc HDL Cholesterol Cholesterol/HDL Ratio Folate 19.88 TSH Urine Color Urine Appearance Urine pH Ur Specific [place] Urine Protein Urine Glucose (UA) Urine Ketones Urine Blood Urine Nitrite Urine Bilirubin Urine Urobilinogen Ur Leukocyte Esterase Urine WBC (Auto) Urine RBC (Auto) U Hyaline Cast (Auto) U Epithel Cells (Auto) Urine Bacteria (Auto) 10/08/19 10/08/19 10/08/19 00:10 00:13 05:41 WBC 8.36 RBC 3.76 L Hgb 11.0 L Hct 33.6 L MCV 89.4 MCH 29.3 MCHC 32.7 RDW Std Deviation 47.0 H RDW Coeff of [place] 14.4 Plt Count 351 MPV 11.2 H Immature Gran % (Auto) 0.4 Neut % (Auto) 70.2 Lymph % (Auto) 17.1 [place] % (Auto) 12.1 Eos % (Auto) 0.1 Baso % (Auto) 0.1 Reticulocyte % (Auto) Immature Gran # (Auto) 0.03 H Neut # (Auto) 5.87 Lymph # (Auto) 1.43 [place] # (Auto) 1.01 H Eos # (Auto) 0.01 Baso # (Auto) 0.01 Reticulocyte # Sodium 138 Potassium 4.4 Chloride 107 Carbon Dioxide 22 Anion Gap 9.0 BUN 87 H Creatinine 5.00 H* Est Cr Clr Drug Dosing 15.8 Est GFR ( Amer) 13.3 Est GFR (Non-Af Amer) 11.5 BUN/Creatinine Ratio 17.6 Glucose 137 H Estimat Average Glucose Hemoglobin A1c Calcium 9.0 Phosphorus Iron TIBC Total Bilirubin AST ALT Alkaline Phosphatase Troponin I NT-Pro-B Natriuret Pep Total Protein Albumin Globulin Albumin/Globulin Ratio Triglycerides Cholesterol LDL Cholesterol, Calc VLDL Cholesterol, Calc HDL Cholesterol Cholesterol/HDL Ratio Folate TSH Urine Color Yellow Urine Appearance Clear Urine pH 5.5 Ur Specific [place] 1.011 Urine Protein Negative Urine Glucose (UA) Negative Urine Ketones Negative Urine Blood Trace H Urine Nitrite Negative Urine Bilirubin Negative Urine Urobilinogen Negative Ur Leukocyte Esterase Negative Urine WBC (Auto) 0 Urine RBC (Auto) 0-4 U Hyaline Cast (Auto) 0 U Epithel Cells (Auto) 0-5 Urine Bacteria (Auto) Negative 10/08/19 10/08/19 05:41 12:01 WBC RBC Hgb Hct MCV MCH MCHC RDW Std Deviation RDW Coeff of [place] Plt Count MPV Immature Gran % (Auto) Neut % (Auto) Lymph % (Auto) [place] % (Auto) Eos % (Auto) Baso % (Auto) Reticulocyte % (Auto) Immature Gran # (Auto) Neut # (Auto) Lymph # (Auto) [place] # (Auto) Eos # (Auto) Baso # (Auto) Reticulocyte # Sodium 138 138 Potassium 3.6 D 3.3 L Chloride 104 104 Carbon Dioxide 22 25 Anion Gap 12.0 H 10.0 BUN 79 H 79 H Creatinine 4.30 H D 4.02 H Est Cr Clr Drug Dosing 17.3 18.5 Est GFR ( Amer) 16.0 17.3 Est GFR (Non-Af Amer) 13.8 14.9 BUN/Creatinine Ratio 18.4 19.7 Glucose 113 H 123 H Estimat Average Glucose Hemoglobin A1c Calcium 9.8 9.6 Phosphorus Iron TIBC Total Bilirubin 0.3 AST 16 ALT 19 Alkaline Phosphatase 70 Troponin I NT-Pro-B Natriuret Pep Total Protein 7.9 Albumin 4.1 Globulin 3.8 Albumin/Globulin Ratio 1.1 Triglycerides 213 H Cholesterol 216 H LDL Cholesterol, Calc 47 VLDL Cholesterol, Calc 43 HDL Cholesterol 126 Cholesterol/HDL Ratio 2 Folate TSH Urine Color Urine Appearance Urine pH Ur Specific [place] Urine Protein Urine Glucose (UA) Urine Ketones Urine Blood Urine Nitrite Urine Bilirubin Urine Urobilinogen Ur Leukocyte Esterase Urine WBC (Auto) Urine RBC (Auto) U Hyaline Cast (Auto) U Epithel Cells (Auto) Urine Bacteria (Auto) Medications Administered Current Inpatient Medications Acetaminophen (Tylenol) 650 mg PO Q4H PRN PRN Reason: Pain or Fever Stop: 11/06/19 21:08 Hydrocodone Bitart/Acetaminophen ([place] 5/325) 1 tab PO DAILY PRN PRN Reason: Pain Stop: 10/21/19 21:17 Al Hydrox/Mg Hydrox/Simethicone (Maalox) 15 ml PO Q4H PRN PRN Reason: Dyspepsia Stop: 11/06/19 21:08 Allopurinol (Zyloprim) 100 mg PO DAILY [facility] Stop: 11/07/19 08:59 Last Admin: 10/08/19 08:59 Dose: 100 mg Documented by: Aspirin (Ecotrin Ectab) 81 mg PO QAM [facility] Stop: 11/07/19 08:59 Last Admin: 10/08/19 08:59 Dose: 81 mg Documented by: Atorvastatin Calcium (Lipitor) 80 mg PO QPM ROSALINDA Stop: 11/06/19 21:08 Last Admin: 10/08/19 20:08 Dose: 80 mg Documented by: Hydralazine HCl (Apresoline) 10 mg PO QID PRN PRN Reason: Blood pressure high Stop: 11/06/19 21:08 Lorazepam (Ativan) 0.5 mg in 1 mls @ 0.5 mls/min IV Q3H PRN PRN Reason: Anxiety Stop: 11/06/19 22:30 Last Admin: 10/08/19 20:08 Dose: 0.5 mls/min Documented by: Lidocaine HCl (Xylocaine 2% Jelly) 5 ml EXT Q8 ROSALINDA Stop: 11/07/19 13:59 Last Admin: 10/08/19 20:11 Dose: 5 ml Documented by: Magnesium Hydroxide (Milk Of Magnesia) 30 ml PO Q12H PRN PRN Reason: Constipation Stop: 11/06/19 21:08 Metoprolol Tartrate (Lopressor) 12.5 mg PO BID ROSALINDA Stop: 11/06/19 21:44 Last Admin: 10/08/19 20:06 Dose: 12.5 mg Documented by: Polyethylene Glycol (Miralax Powder Packet) 17 gm PO DAILY PRN PRN Reason: Constipation Stop: 11/06/19 21:08 Tamsulosin HCl (Flomax) 0.4 mg PO HS ROSALINDA Stop: 11/07/19 20:59 Last Admin: 10/08/19 20:06 Dose: 0.4 mg Documented by: Tramadol HCl (Ultram) 50 mg PO TID PRN PRN Reason: pain Stop: 11/06/19 21:08 PG Care Time/CCT Total # of Minutes Spent Total Time Spent with Patient: Total time spent is greater than 50% in coordination of care (as documented) at patient's floor/unit and/or counseling patient: Coding Level of Care Code 81526 Subseq Hosp Care Lvl 3 Diagnoses RACHID (acute kidney injury) N17.9 Hypertension I10 Anemia D64.9 Gout M10.9 Hydronephrosis N13.30 Urinary retention R33.9 Hypokalemia E87.6 Muscle cramps R25.2
[2019-10-08] MEDS: LIDOCAINE 2% JELLY 5 ML TUBE EXT SCH ×2 (14:02→20:11)
--- NOTE | 2019-10-08 14:41 | XCELERA ---
[id number] \\[id number]
[2019-10-08] MEDS ORDERED: POTASSIUM CHLORIDE 20 MEQ TABCR PO STA (16:17)
--- NOTE | 2019-10-08 17:05 | Electrocardiogram Report ---
Test Reason : Blood Pressure : / mmHG Vent. Rate : 079 BPM Atrial Rate : 079 BPM P-R Int : 136 ms QRS Dur : 096 ms QT Int : 384 ms P-R-T Axes : 028 005 033 degrees QTc Int : 440 ms Sinus rhythm with Premature atrial complexes with Aberrant conduction Otherwise normal ECG When compared with ECG of 11-JUN-2007 18:30, Aberrant conduction is now Present Confirmed by Nishant Ovalles ([id number]) on 10/08/2019 5:05:37 PM Referred By: Anthony Figueredo Confirmed By:Nishant Ovalles
[2019-10-08] MEDS: TAMSULOSIN HCL 0.4 MG CAP PO SCH (20:06)
[2019-10-08] MEDS: ATORVASTATIN 40 MG TAB PO SCH (20:08)
[2019-10-08] MEDS ORDERED: POTASSIUM CHLORIDE 20 MEQ/15 ML UDC PO STA (21:00)
[2019-10-08 22:14] LABS: BUN Creatinine Ratio 19.3 (10-20); Calcium 8.7 mg/dl (8.5-10.1); Creatinine Clr Calc Pharmacy 17.4 ml/min; Est GFR (Non-African American) 13.8
[2019-10-08] MEDS: HYDROCODONE/ACETAMOPHEN 5/325MG TAB PO PRN (23:44)
[2019-10-08] MEDS: MAGNESIUM SULFATE / D5W 1 GM/100 ML BAG IV SCH (23:45)
[2019-10-09] MEDS: MAGNESIUM SULFATE / D5W 1 GM/100 ML BAG IV SCH ×3 (00:46→02:56)
[2019-10-09] MEDS: LIDOCAINE 2% JELLY 5 ML TUBE EXT SCH ×3 (06:05→19:41)
[2019-10-09 06:26] LABS: BUN Creatinine Ratio 21.5 (10-20); Calcium 8.6 mg/dl (8.5-10.1); Creatinine Clr Calc Pharmacy 20.3 ml/min; Est GFR (African American) 18.8; Est GFR (Non-African American) 16.2
[2019-10-09] MEDS: METOPROLOL TARTRATE 25 MG TAB PO SCH (07:43)
[2019-10-09] MEDS: allopurinoL 100 MG TAB PO SCH (07:45)
[2019-10-09] MEDS: ASPIRIN 81 MG ECTAB PO SCH (07:45)
[2019-10-09] MEDS ORDERED: NORMOSOL-R 1,000 ML IV ONE (11:20)
[2019-10-09] MEDS ORDERED: NORMOSOL-R 500 ML IV ONE (11:23)
--- NOTE | 2019-10-09 11:34 | Nephrology Progress Note ---
Date of Service October 09, 2019 Assessment & Plan (1) RACHID (acute kidney injury): Post obstructive. Also noted use of NSAIDS and lisinopril at home. Improving. Net negative fluid balance. Post obstructive diuresis. BP and serum sodium reflect intravascular volume loss. Will given 500 ml Normosol. Continue to hold MARTHA and HCTZ at this time. Medications currently appropriate for kidney function. Electrolytes acceptable. Baseline creatinine 1.3 mg/dL. Outpatient follow up will be arranged in the nephrology clinic at discharge. (2) Urinary retention: Secondary to BROCK. Urology consultation reviewed. Plan for Brennan x 14 days. Tamsulosin added. (3) Hypertension: BP has been running low. Lisinopril and HCTZ held. Slightly intravascularly depleted due to post-obstructive diuresis. (4) Gout attack: With OA/DJD. Recent history of NSAID use noted. Reviewed importance of avoiding NSAIDS at this time. Subjective No acute events overnight. Keenan feels well this morning. Brennan draining herron colored urine. No clots. Keenan denies pain. No fevers or chills. Oral intake is good. Mild lightheadedness. No dyspnea. Appetite good. Keenan hopes to possibly be discharged home today. Review of Systems Review of Systems: All systems reviewed & are unremarkable except as noted in HPI & below Physical Exam Constitutional: well developed; no acute distress Eyes: no scleral abnormality and no corneal abnormality ENMT: Mouth: no oral mucosal abnormality and oral mucous membranes not dry Neck: normal visual inspection and trachea midline Respiratory: normal respiratory effort Auscultation: lungs clear to auscultation bilaterally Cardiovascular: Rate/Rhythm: regular rate Heart Sounds: normal S1 and normal S2 Extremities: no edema Musculoskeletal: Extremities: no cyanosis and no clubbing Skin: normal turgor; no lesions Neurologic: Motor/Sensory: no tremor and no asterixis Psychiatric: Orientation: alert and oriented x 3 Genitourinary: Brennan draining herron colored urine Results & Data Vital Signs (Past 12 Hours) Vital Signs Temp Pulse Pulse Resp BP Pulse Ox 10/09/19 08:00 92 H 10/09/19 07:38 36.9 C 109 H 18 86/64 L 97 10/09/19 03:58 36.7 C 88 18 89/58 L 96 10/09/19 00:11 37 C 85 18 109/72 98 Laboratory Results Laboratory Results - last 24 hr 10/08/19 10/08/19 10/09/19 12:01 21:12 05:45 Sodium 138 133 L 132 L Potassium 3.3 L 4.0 D 4.0 Chloride 104 100 100 Carbon Dioxide 25 23 22 Anion Gap 10.0 10.0 10.0 BUN 79 H 83 H 81 H Creatinine 4.02 H 4.28 H 3.75 H D Est Cr Clr Drug Dosing 18.5 17.4 20.3 Est GFR ( Amer) 17.3 16.0 18.8 Est GFR (Non-Af Amer) 14.9 13.8 16.2 BUN/Creatinine Ratio 19.7 19.3 21.5 H Glucose 123 H 132 H 165 H Calcium 9.6 8.7 8.6 Magnesium 1.0 L 3.0 H PG Care Time/CCT Total # of Minutes Spent Total Time Spent with Patient: Total time spent is greater than 50% in coordination of care (as documented) at patient's floor/unit and/or counseling patient: Coding Level of Care Code 72940 Subseq Hosp Care Lvl 3 Diagnoses RACHID (acute kidney injury) N17.9 Urinary retention R33.9 Hypertension I10 Gout attack M10.9
--- NOTE | 2019-10-09 12:45 | Hospitalist Progress Note ---
Date of Service October 09, 2019 Assessment & Plan (1) RACHID (acute kidney injury): presented with Cr up to 5 this was due to post renal obstruction, bladder outlet obstruction, likely due to enlarged prostate Cr coming down to 3.7 today, electrolytes stable making excellent urine, post obstructive diuresis intravascularly depleted, will give 500cc and see how he responds continue to monitor BMP closely, check in the morning would expect continued drop in Cr with the relief of the obstruction nephrology following hopeful for d/c tomorrow if Cr continues to drop and BP improves (2) Hypertension: Stop lisinopril and hydrochlorothiazide due to worsening renal function. hold metoprolol 12.5mg BID with the low BP hold the Hydralazine PRN BP low, will give volume today, look for improvement, no symptoms at this time (3) Anemia: Hb stable follow as outpatient (4) Gout: Stable at this time. Continue allopurinol 100 mg p.o. daily reminded patient to NOT use NSAIDs (5) Hydronephrosis: due to bladder obstruction relieved with beach catheter (6) Urinary retention: new issue, says that he has been having difficulty for a few months got much worse recently denies being in a great deal of abdominal discomfort despite the bladder distension and hydronephrosis will keep beach for 14 days Flomax follow up with urology in the office for voiding trial (7) Hypokalemia: likely related to renal failure, poor K intake resolved today, K is 4.0 (8) Muscle cramps: likely due to low K, will replace cramps better today Admission and Anticipated Discharge Date Admission Date: October 07, 2019 Anticipated date of discharge: 10/10/19 Subjective patient feeling better today, making a lot of urine Cr trending down to 3.7, electrolytes stable experiencing diuresis from obstruction relief, depleted intravascularly d/w Dr. Peralta, will give 500cc of saline BP noted to be low in the 80's, he denies light headedness, weakness beach still with some herron colored urine, no clots noted to be on metoprolol, will stop patient hoping to go home today, discussed that with his low BP we should watch until tomorrow he understands Review of Systems Review of Systems: All systems reviewed & are unremarkable except as noted in HPI & below Respiratory: no cough and no dyspnea Cardiovascular: no chest pain and no edema Gastrointestinal: no abdominal pain, no nausea, no vomiting, no constipation and no diarrhea/loose stools Genitourinary: + hematuria and + problem reported (beach) Physical Exam Constitutional: WD/WN, vitals as above Eyes: PERRL, conjunctivae normal, anicteric sclerae ENMT: external ear and nose normal, oropharynx normal Neck: trachea midline, no thyromegaly Respiratory: normal respiratory effort, lungs clear to auscultation Cardiovascular: RRR, no murmur, no edema Gastrointestinal (Abdomen): normal bowel sounds, soft, nontender, no hepatosplenomegaly Musculoskeletal: no cyanosis or clubbing, extremities motor strength 5/5 Skin: no rashes, warm and dry Neurologic: patellar DTR's 2+ bilat, sensation intact and PERRL, EOMI, acco mmodation nl, no face palsy, no dysarthria Psychiatric: A+Ox3, euthymic affect Genitourinary: no CVA tenderness Lymphatic: no cervical or axillary lymphadenopathy Results & Data ([facility] [place]) Vital Signs (Past 12 Hours) Vital Signs Temp Pulse Pulse Resp BP Pulse Ox 10/09/19 11:03 36.4 C L 112 H 20 108/91 99 10/09/19 08:00 92 H 10/09/19 07:38 36.9 C 109 H 18 86/64 L 97 10/09/19 03:58 36.7 C 88 18 89/58 L 96 Laboratory Results Laboratory Results - last 24 hr 10/08/19 10/08/19 10/09/19 12:01 21:12 05:45 Sodium 138 133 L 132 L Potassium 3.3 L 4.0 D 4.0 Chloride 104 100 100 Carbon Dioxide 25 23 22 Anion Gap 10.0 10.0 10.0 BUN 79 H 83 H 81 H Creatinine 4.02 H 4.28 H 3.75 H D Est Cr Clr Drug Dosing 18.5 17.4 20.3 Est GFR ( Amer) 17.3 16.0 18.8 Est GFR (Non-Af Amer) 14.9 13.8 16.2 BUN/Creatinine Ratio 19.7 19.3 21.5 H Glucose 123 H 132 H 165 H Calcium 9.6 8.7 8.6 Magnesium 1.0 L 3.0 H Medications Administered Current Inpatient Medications Acetaminophen (Tylenol) 650 mg PO Q4H PRN PRN Reason: Pain or Fever Stop: 11/06/19 21:08 Last Admin: 10/08/19 21:34 Dose: 650 mg Documented by: Hydrocodone Bitart/Acetaminophen (Aurora 5/325) 1 tab PO DAILY PRN PRN Reason: Pain Stop: 10/21/19 21:17 Last Admin: 10/08/19 23:44 Dose: 1 tab Documented by: Al Hydrox/Mg Hydrox/Simethicone (Maalox) 15 ml PO Q4H PRN PRN Reason: Dyspepsia Stop: 11/06/19 21:08 Allopurinol (Zyloprim) 100 mg PO DAILY ROSALINDA Stop: 11/07/19 08:59 Last Admin: 10/09/19 07:45 Dose: 100 mg Documented by: Aspirin (Ecotrin Ectab) 81 mg PO QAM ROSALINDA Stop: 11/07/19 08:59 Last Admin: 10/09/19 07:45 Dose: 81 mg Documented by: Atorvastatin Calcium (Lipitor) 80 mg PO QPM ROSALINDA Stop: 11/06/19 21:08 Last Admin: 10/08/19 20:08 Dose: 80 mg Documented by: Lorazepam (Ativan) 0.5 mg in 1 mls @ 0.5 mls/min IV Q3H PRN PRN Reason: Anxiety Stop: 11/06/19 22:30 Last Admin: 10/08/19 20:08 Dose: 0.5 mls/min Documented by: Parenteral Electrolytes (Normosol-R) 500 mls @ 250 mls/hr IV .Q2H ONE Stop: 10/09/19 13:22 Last Admin: 10/09/19 12:00 Dose: 250 mls/hr Documented by: Lidocaine HCl (Xylocaine 2% Jelly) 5 ml EXT Q8 ROSALINDA Stop: 11/07/19 13:59 Last Admin: 10/09/19 06:05 Dose: 5 ml Documented by: Magnesium Hydroxide (Milk Of Magnesia) 30 ml PO Q12H PRN PRN Reason: Constipation Stop: 11/06/19 21:08 Polyethylene Glycol (Miralax Powder Packet) 17 gm PO DAILY PRN PRN Reason: Constipation Stop: 11/06/19 21:08 Tamsulosin HCl (Flomax) 0.4 mg PO HS ROSALINDA Stop: 11/07/19 20:59 Last Admin: 10/08/19 20:06 Dose: 0.4 mg Documented by: Tramadol HCl (Ultram) 50 mg PO TID PRN PRN Reason: pain Stop: 11/06/19 21:08 PG Care Time/CCT Total # of Minutes Spent Total Time Spent with Patient: Total time spent is greater than 50% in coordination of care (as documented) at patient's floor/unit and/or counseling patient: Coding Level of Care Code 56862 Subseq Hosp Care Lvl 3 Diagnoses RACHID (acute kidney injury) N17.9 Hypertension I10 Anemia D64.9 Gout M10.9 Hydronephrosis N13.30 Urinary retention R33.9 Hypokalemia E87.6 Muscle cramps R25.2
[2019-10-09] MEDS: LORazepam 0.5 MG/1 ML VIAL IV PRN ×2 (14:30→20:57)
[2019-10-09] MEDS ORDERED: SODIUM CHLORIDE 0.9% 1000ML 1,000 ML IV SCH (16:15)
[2019-10-09] MEDS: HYDROCODONE/ACETAMOPHEN 5/325MG TAB PO PRN (19:39)
[2019-10-09] MEDS: TAMSULOSIN HCL 0.4 MG CAP PO SCH (19:40)
[2019-10-09] MEDS: ATORVASTATIN 40 MG TAB PO SCH (19:40)
[2019-10-09 23:08] LABS: BUN Creatinine Ratio 24.8 (10-20); Calcium 8.3 mg/dl (8.5-10.1); Creatinine Clr Calc Pharmacy 25.4 ml/min; Est GFR (African American) 24.7; Est GFR (Non-African American) 21.3; Magnesium 1.8 mg/dl (1.8-2.4); Potassium 3.8 mmol/L (3.5-5.1)
[2019-10-10] MEDS: LIDOCAINE 2% JELLY 5 ML TUBE EXT SCH (05:08)
[2019-10-10 07:57] LABS: BUN Creatinine Ratio 26.9 (10-20); Calcium 9.1 mg/dl (8.5-10.1); Est GFR (Non-African American) 25.1; Potassium 4.1 mmol/L (3.5-5.1)
[2019-10-10] MEDS: ASPIRIN 81 MG ECTAB PO SCH (07:58)
[2019-10-10] MEDS: allopurinoL 100 MG TAB PO SCH (07:59)
[2019-10-10] MEDS ORDERED: LACTATED RINGER'S 1,000 ML IV ONE (08:59)
--- NOTE | 2019-10-10 09:16 | Discharge Summary ---
Date of Service October 10, 2019 Admission HPI Per Admitting Provider The patient is a 64 years old male with past medical history of gout, upper back injury, uncontrolled hypertension and CKD stage III that has been worsening since September 2019. Prior to September 2019 there are only 2 measurements of creatinine going back to 2018 which are pretty much upper limit of normal and worsening since August 08, 2017. Patient reports no complaint. He was sent as a direct admit from his PCP office who was concerned about patient worsening kidney function and/or failure. Reports never being smoker. He also reports that he was taking lots of NSAIDs for his back pain. Patient denies fever, chills, headache, chest pain, shortness of breath, abdominal pain, frequency, urgency. Labs are reviewed from October 06, 2019 which shows sodium 08/04/1933, potassium 4.1, chloride 107, carbon dioxide 19, anion gap 11, BUN 86, creatinine 4.97, GFR 11.6, glucose 145, urine which is clear and negative for nitrates bilirubin urobilinogen leukocyte esterase and protein. Chest x-rays are done and they show cardiomediastinal and hilar silhouette are within normal limits no pneumothorax, pleural effusion, focal airspace consolidation or overt pulmonary edema bones of the chest appear grossly intact. No acute process. Today labs are pending. Decision was made to admit patient for worsening chronic kidney insufficiency to PCU on telemetry and for further evaluation and treatment. Principal Diagnosis Acute kidney injury due to bladder outlet obstruction Discharge Exam Constitutional WD/WN, vitals as above Eyes PERRL, conjunctivae normal, anicteric sclerae ENMT external ear and nose normal, oropharynx normal Neck trachea midline, no thyromegaly Respiratory normal respiratory effort, lungs clear to auscultation Cardiovascular RRR, no murmur, no edema Gastrointestinal (Abdomen) normal bowel sounds, soft, nontender, no hepatosplenomegaly Musculoskeletal no cyanosis or clubbing, extremities motor strength 5/5 Skin no rashes, warm and dry Neurologic patellar DTR's 2+ bilat, sensation intact and PERRL, EOMI, accommodation nl, no face palsy, no dysarthria Psychiatric A+Ox3, euthymic affect Genitourinary no CVA tenderness Lymphatic no cervical or axillary lymphadenopathy Discharge Data Allergies Allergy/AdvReac Type Severity Reaction Status Date / Time No Known Allergies Allergy Mild Verified 09/13/19 12:18 Consultations 10/07/19 21:09 Consult Nephrology Routine 10/08/19 07:38 Consult Urology Routine Ordered Studies 10/07/19 21:31 US renal/blad retro comp Routine Hospital Course (1) RACHID (acute kidney injury): presented with Cr up to 5 this was due to post renal obstruction, bladder outlet obstruction, likely due to enlarged prostate Cr coming down to 2.6 today, making urine, electrolytes stable making excellent urine, post obstructive diuresis continue to monitor BMP closely, check in a few days as outpatient nephrology following told patient to make sure he drinks fluids to replace whatever he makes in the beach bag (2) Hypertension: Stop lisinopril and hydrochlorothiazide due to worsening renal function. hold metoprolol 12.5mg BID with the low BP hold the Hydralazine PRN BP low normal but stable, no light headedness told patient to continue to hold Lisinopril and HCTZ until told to resume by Dr. Figueredo follow up with Dr. Figueredo in one week (3) Anemia: Hb stable follow as outpatient (4) Gout: Continue allopurinol 100 mg p.o. daily reminded patient to NOT use NSAIDs slightly more tender in left MTP joint, has chronic tophus medrol dose federico prescribed (5) Hydronephrosis: due to bladder obstruction relieved with beach catheter (6) Urinary retention: new issue, says that he has been having difficulty for a few months got much worse recently denies being in a great deal of abdominal discomfort despite the bladder distension and hydronephrosis will keep beach for 14 days Flomax follow up with urology in the office for voiding trial, converted to leg bag on discharge (7) Hypokalemia: likely related to renal failure, poor K intake resolved on day of discharge (8) Muscle cramps: likely due to low K, will replace cramps better today Total Time Total Time Spent Total Time Spent (In Minutes): 32 minutes Total Time Includes: Examination of the Patient, Discharge Planning, Medication Reconciliation and Communication With Other Providers (Dr. Peralta) Discharge Plan Discharge Items Patient Disposition: Home - Self-Care Reason For Visit: ACUTE AND CHRONIC KIDNEY FAILURE Discharge Diagnosis: Acute kidney injury Bladder outlet obstruction Hydronephrosis Condition on Discharge: Good Goals: maintain beach catheter until you follow up with urology in the office stay well hydrated, drink at least as much as you make in the beach Activity: Resume your previous activity Non-emergency contact: Primary Care Provider and Urologist Call non-emergency contact if: you have any medication questions, your symptoms worsen and you have a fever Follow-up/Referrals: Anthony Figueredo III, MD [Primary Care Provider] - (one week) Jefe Keith DO [Physician] - (Please schedule for October 17, or , can be with a PA-Baldo in urology office) Diet: Regular Ambulatory Orders: Basic Metabolic Panel (Routine) Timeframe: 3 Days Location: Determined by Patient Ordered By: Jr Kidd Attending Provider Instructions: Medications: - FLOMAX: 0.4mg daily, this will relax the prostate - LISINOPRIL: stop due to acute renal failure - HYDROCHLOROTHIAZIDE: stop due to acute renal failure Acute renal failure, bladder outlet obstruction, hydronephrosis resolved with placing beach catheter and draining the bladder likely the cause of the obstruction is enlarged prostate started on Flomax to relax the prostate you will need to keep the beach catheter until seen by urology in the office this will allow the bladder to relax and recover from being stretched continue to hold the lisinopril and HCTZ Creatinine is down to 2.6 today, was 5.0 on admission electrolytes are stable you continue to make a lot of urine which is a normal response after obstruction relieved please be sure to drink at least as much volume as you lose in the beach bag Pending Studies at Discharge: No Stand-Alone Forms: My [facility], Smoking Cessation Medications and DC Order Prescriptions: New tamsulosin 0.4 mg Capsule 0.4 mg PO HS 30 Days Qty: 30 RF: 1 methylprednisolone [Medrol (Federico)] 4 mg tablets,dose pack 4 mg PO .as directed Qty: 21 RF: 0 Continued allopurinol 100 mg tablet 100 mg PO DAILY Qty: 30 RF: 11 atorvastatin 80 mg tablet 80 mg PO QPM Qty: 90 RF: 3 hydrocodone-acetaminophen 5-325 mg tablet 2 tab PO DAILY PRN (Reason: pain) Qty: 15 RF: 0 tramadol 50 mg tablet 50 mg PO TID PRN (Reason: pain) Qty: 60 RF: 0 betamethasone acet,sod phos 6 mg/mL suspension 12 mg IA ONCE Qty: 2 RF: 0 Discontinued hydrochlorothiazide 25 mg tablet 25 mg PO DAILY Qty: 90 RF: 3 lisinopril 30 mg tablet 30 mg PO DAILY Qty: 90 RF: 3 ciprofloxacin HCl [Cipro] 250 mg tablet 250 mg PO BID Qty: 14 RF: 0 Discharge Orders: Discharge Order (Routine); Ordered 10/10/19 Ordered By: Jr Chase Admission Data Admit Date/Time: 10/07/19 20:04 Attending Provider: Jr Chase Admit Provider: Andre Padilla Primary Care Provider: Anthony Figueredo III Other Providers: Jefe Castillo ; Reggie Adkins Other Interventions: Discharge Summary Assessment (RN) Last Done: 10/10/19 09:39 Coding Level of Care Code D/C Day Management >30 mins Diagnoses RACHID (acute kidney injury) N17.9 Hypertension I10 Anemia D64.9 Gout M10.9 Hydronephrosis N13.30 Urinary retention R33.9 Hypokalemia E87.6 Muscle cramps R25.2
--- NOTE | 2019-10-10 10:32 | Nephrology Progress Note ---
Date of Service October 10, 2019 Assessment & Plan (1) RACHID (acute kidney injury): Post obstructive. Also noted use of NSAIDS and lisinopril at home. Improving. Post obstructive diuresis. Encourage fluids to achieve a positive fluid balance. BP and serum sodium reflect intravascular volume loss. Continue to hold MARTHA and HCTZ at this time. Repeat metabolic profile next week. Will arrange outpatient follow up in the nephrology clinic. Medications currently appropriate for kidney function. Electrolytes acceptable. Baseline creatinine 1.3 mg/dL. (2) Urinary retention: Secondary to BROCK. Urology follow up arranged. Plan for Brennan x 14 days. Tamsulosin added. (3) Hypertension: BP has been running low. Lisinopril and HCTZ held. Slightly intravascularly depleted due to post-obstructive diuresis. (4) Gout attack: With OA/DJD. Recent history of NSAID use noted. Reviewed importance of avoiding NSAIDS at this time. Subjective Feels well. Plan to return home with close outpatient follow up reviewed. Plan of care discussed with Dr. Chase. Review of Systems Review of Systems: All systems reviewed & are unremarkable except as noted in HPI & below Physical Exam Constitutional: well developed; no acute distress Eyes: no scleral abnormality and no corneal abnormality ENMT: Mouth: no oral mucosal abnormality and oral mucous membranes not dry Neck: normal visual inspection and trachea midline Respiratory: normal respiratory effort Auscultation: lungs clear to auscultation bilaterally Cardiovascular: Rate/Rhythm: regular rate Heart Sounds: normal S1 and normal S2 Extremities: no edema Musculoskeletal: Extremities: no cyanosis and no clubbing Skin: normal turgor; no lesions Neurologic: Motor/Sensory: no tremor and no asterixis Psychiatric: Orientation: alert and oriented x 3 Results & Data Vital Signs (Past 12 Hours) Vital Signs Temp Pulse Pulse Pulse Resp BP BP 10/10/19 09:39 36.7 C 103 H 19 90/66 L 10/10/19 08:23 36.7 C 108 H 19 105/70 90/66 L 10/10/19 03:44 36.6 C 103 H 16 94/56 L 10/10/19 03:09 101 H 10/10/19 00:13 37.0 C 113 H 18 100/61 Pulse Ox 10/10/19 09:39 98 10/10/19 08:23 98 10/10/19 03:44 97 10/10/19 03:09 10/10/19 00:13 96 Laboratory Results Laboratory Results - last 24 hr 10/09/19 10/10/19 22:39 07:26 Sodium 136 136 Potassium 3.8 4.1 Chloride 105 108 H Carbon Dioxide 22 19 L Anion Gap 9.0 9.0 BUN 75 H 71 H Creatinine 3.00 H D 2.62 H D Est Cr Clr Drug Dosing 25.4 29.0 Est GFR ( Amer) 24.7 29.0 Est GFR (Non-Af Amer) 21.3 25.1 BUN/Creatinine Ratio 24.8 H 26.9 H Glucose 147 H 124 H Calcium 8.3 L 9.1 Phosphorus 3.0 Magnesium 1.8 PG Care Time/CCT Total # of Minutes Spent Total Time Spent with Patient: Total time spent is greater than 50% in coordination of care (as documented) at patient's floor/unit and/or counseling patient: Coding Level of Care Code 73923 Subseq Hosp Care Lvl 3 Diagnoses RACHID (acute kidney injury) N17.9 Urinary retention R33.9 Hypertension I10 Gout attack M10.9
== END 2019-10-10 10:36 | disposition home or self-care (01) | DRG 699 ==
LOC: 2E 20:04 → SUATTDRO 20:04

== ENCOUNTER 2020-08-26 19:22 | Inpatient (IN) ==
[2020-08-26] MEDS ORDERED: SODIUM CHLORIDE 0.9% 1000ML 1,000 ML IV SCH (19:30)
--- NOTE | 2020-08-26 19:47 | Emergency Department Note ---
Impression & Plan Rhabdomyolysis, Abnormal LFTs, Hydroureteronephrosis, Elevated troponin I level, Acute urinary retention ED Provider Note NAME: CHRISTIAN NEIL AGE: 65 SEX: M : 1955 ARRIVES VIA: Ambulance INFORMANT: Patient, prehospital personnel ED PROVIDER(S): Nishant Sue DO CHIEF COMPLAINT: Weakness HPI: The patient is a 65-year-old male who presented to the emergency department for an evaluation of generalized weakness. The patient is noticed a decline in his overall health over the course the last week. He does have a history of renal insufficiency and states the last time he felt like this his kidney function was abnormal. The patient denies having any headaches. He does complain of bilateral lower extremity weakness and no unilateral weakness. He does have flank pain. He denies having any chest pain. He does complain of some dyspnea on exertion. He denies having any recent fevers or cough. He has had no exposure to COVID-19 as far as the can recall. The patient denies having any decreased urine output but does note swelling in both lower extremities. Otherwise he states that he has been compliant with all of his outpatient medications. He said that he has had problems with his prostate in the past and that is why he has had urinary problems. ROS: See above HPI for pertinent positives & negatives. A total of 10 systems reviewed and were otherwise negative. PAST MEDICAL HISTORY: See Below PAST SURGICAL HISTORY: See Below FAMILY HISTORY: See Below SOCIAL HISTORY: See Below HOME MEDICATIONS: See Below ALLERGIES: See Below VITALS: See Below PHYSICAL EXAMINATION: GENERAL: The patient is awake and alert. He is somewhat listless appearing but overall comfortable. EYES: The conjunctivae are clear. The pupils are round and reactive. EARS, NOSE, MOUTH AND THROAT: The nose is without any evidence of any deformity. Mucous membranes are dry NECK: The neck is nontender and supple. RESPIRATORY: Normal respiratory effort is noted there is no evidence of wheezing rhonchi or rales CARDIOVASCULAR: Regular rate and rhythm noted there no murmurs rubs or gallops normal S1 normal S2. GASTROINTESTINAL: The abdomen is soft. Abdomen is nontender. MUSCULOSKELETAL/EXTREMITIES: There is no evidence of gross deformity full range of motion is noted in the hips and shoulders. SKIN: There is pedal edema bilaterally. Skin is warm and dry. There is petechia noted on both sides of his upper back. There is ecchymosis noted over both extremities upper and lower at different stages. NEUROLOGIC: Patient is awake alert and oriented x 3. Strength is diminished but symmetric in both lower extremities. MEDICAL DECISION MAKING: The patient is a 65-year-old male who presented to the emergency department for an evaluation of general decline. The patient started noticing generalized weakness which was slowly worsening. He appeared to have signs of petechia on his back as well as bruising over his body. He had generalized weakness which was over both lower extremities and appeared very severe. I discussed the patient's laboratory and radiographic studies with him. He was found to be in urinary retention and treated with IV fluids and Brennan catheter. He was found to have elevated liver function studies as well as rhabdomyolysis. I do feel that these studies likely explain the patient's decompensation and generalized weakness. I discussed the patient's condition with the on-call [facility] hospitalist. They have agreed to evaluate the patient in the emergency department for further management and disposition. Triage Nursing notes reviewed. Prior medical records reviewed Vital Signs: reviewed and remarkable for elevated blood pressure. Differential diagnosis: Infection, dehydration, metabolic abnormality, hypo/hyperglycemia, electrolyte disturbance, anemia, hypoxia, cardiac sources, intracerebral event, toxicologic, neurologic, as well as other pathologies. ER treatment provided: See below Diagnostics interpreted by me: ECG: EKG was obtained in the emergency department. My interpretation is normal sinus rhythm at 73 bpm. There was no ectopy. There was no acute ST segment abnormalities noted. This was compared to a tracing from October 062019. No significant changes were noted. Cardiac Monitoring: An order was placed for continuous cardiac monitoring. The monitor shows a rate of 85 bpm with sinus rhythm. Laboratory studies: As stated above and show below. Imaging studies: See below Consultation(s): 2220: I discussed this case with Dr. Singh. He is agreed to evaluate the patient in the emergency department for further management and disposition. Past Med/Surg History Medical History BPH w urinary obs/LUTS Gout attack Olecranon bursitis, right elbow Surgical History No pertinent past surgical history Family History Mother Coronary heart disease Hypertension Father Coronary heart disease Brother Migraine headache Denies family history of Ovarian cancer Prostate cancer Myocardial infarction Breast cancer Colonic polyp Social History Smoking Status: Never smoker Second Hand Exposure: No; Hx Alcohol Use: No Hx Substance Use: No Preferred Language: Uzbek Communication Ability: Effective Visual Impairment: No Limitations Hearing Ability: Normal Frog Catcher Required: No Beliefs That Will Affect Care: None marital status: Current Living Situation: Alone current occupational status: employed Other Information That Helps Us Care for You: No Feels Safe at Home: Yes Safety Concerns: Feels Safe At This Time Dental Care, Regularly: Yes Physical Activity Frequency: 3-4 Times per Week Assistive Devices: Glasses Allergies Allergies Allergy/AdvReac Type Severity Reaction Status Date / Time No Known Allergies Allergy Mild Verified 08/26/20 20:22 Home Meds Home Medications Medication Instructions Recorded Confirmed methylprednisolone 4 mg PO DIRECTED 08/26/20 08/26/20 Previous Rx's Medication Instructions Recorded atorvastatin 80 mg tablet 80 mg PO QPM #90 tab 09/02/19 finasteride 5 mg tablet 5 mg PO DAILY #30 tab 11/01/19 cromolyn 4 % eye drops 2 drops OP QID PRN #10 ml 11/09/19 cetirizine 10 mg tablet 10 mg PO DAILY PRN #30 tab 11/17/19 tamsulosin 0.4 mg capsule 0.4 mg PO HS 30 Days #90 cap 12/16/19 metoprolol succinate 50 mg 50 mg PO DAILY #90 tab 02/23/20 tablet,extended release 24 hr allopurinol 300 mg tablet 300 mg PO DAILY #30 tab 03/07/20 sildenafil 50 mg tablet 50 mg PO DAILY PRN #10 tab 07/17/20 hydrocodone 5 mg-acetaminophen 325 2 tab PO DAILY PRN #15 tab 08/08/20 mg tablet tramadol 50 mg tablet 50 mg PO TID PRN #60 tab 08/10/20 Results & Data (ED) Vital Signs Vital Signs - 24 hr 08/26/20 19:35 08/26/20 19:48 08/26/20 21:12 Temperature 36.7 C Temperature Source Oral Pulse Rate 76 Pulse Rate [Apical] 71 Respiratory Rate 20 18 Respiratory Effort / Characteristics Non-Labored Non-Labored Spontaneous Respiratory Depth Normal Normal Respiratory Pattern Regular Blood Pressure 168/103 H Blood Pressure [Right Arm] 174/92 H Blood Pressure Mean 124 Blood Pressure Mean [Right Arm] 119 Pulse Oximetry 98 98 97 Oxygen Delivery Method Room Air Room Air Room Air Sepsis Recent Fever Within 48 Hours No Sepsis New/Unexplained Change in Mental Status N/A Sepsis Action Taken by Nursing No Action Required Home Medications Current Medication List: was personally reviewed by me Laboratory Data Attestation: I reviewed the patient's lab results. Result diagrams: 08/27/20 07:41 08/27/20 07:41 Lab Results 08/26/20 08/26/20 08/26/20 Range/Units 19:35 19:35 19:35 WBC 9.04 (4.8-10.8) K/uL RBC 3.64 L (4.7-6.1) M/uL Hgb 11.1 L (14.0-18.0) g/dL POC Hgb (14.0-18.0) g/dl Hct 33.9 L (42-52) % POC Hct (42-52) % MCV 93.1 (80-100) fL MCH 30.5 (25-34) pg MCHC 32.7 (32-36) g/dL RDW Std Deviation 58.7 H (36.4-46.3) fL RDW Coeff of Cody 17.3 H (11.5-14.5) % Plt Count 188 (130-400) K/uL MPV 11.3 H (7.4-10.4) fL Immature Gran % (Auto) 1.1 % Neut % (Auto) 86.9 % Lymph % (Auto) 7.0 % Dawes % (Auto) 5.0 % Eos % (Auto) 0.0 % Baso % (Auto) 0.0 % Neut # (Auto) 7.86 H (1.4-6.5) K/uL Lymph # (Auto) 0.63 L (1.2-3.4) K/uL Dawes # (Auto) 0.45 (0.11-0.59) K/uL Eos # (Auto) 0.00 (0-0.5) K/uL Baso # (Auto) 0.00 (0-0.2) K/uL Immature Gran # (Auto) 0.10 H (0.00-0.02) K/uL PT 13.6 H (9.0-12.0) Seconds INR 1.3 H (0.9-1.1) APTT 22.7 (21.0-31.0) Seconds PTT Ratio 0.8 POC Sodium (135-144) mmol/L Sodium 129 L (136-145) mmol/L POC Potassium (3.3-5.0) mmol/L Potassium 3.4 L (3.5-5.1) mmol/L POC Chloride (101-112) mmol/L Chloride 92 L (98-107) mmol/L Carbon Dioxide 26 (21-32) mmol/L POC Total CO2 (24-31) mmol/L Anion Gap 11.0 (3-11) POC Anion Gap (16-25) mmol/L POC BUN (7-18) mg/dl BUN 39 H (7-18) mg/dl Creatinine 1.10 (0.6-1.4) mg/dl POC Creatinine (0.6-1.3) mg/dl Est Cr Clr Drug Dosing 76.0 ml/min Est GFR ( Amer) 82.4 Est GFR (Non-Af Amer) 71.1 BUN/Creatinine Ratio 35.3 H (10-20) Glucose 146 H (70-99) mg/dl POC Glucose (other) (70-99) mg/dl Calcium 8.2 L (8.5-10.1) mg/dl POC Ioniz Calcium Nuris (1.12-1.32) mmol/l Magnesium 2.0 (1.8-2.4) mg/dl Total Bilirubin 6.8 H (0.2-1) mg/dl Direct Bilirubin (0-0.2) mg/dl AST 1241 H (15-37) U/L ALT 527 H (12-78) U/L Alkaline Phosphatase 915 H (45-117) U/L Total Creatine Kinase 09173 H (39-308) U/L Troponin I 0.048 H* (0-0.045) ng/ml Total Protein 5.3 L (6.4-8.2) gm/dl Albumin 2.3 L (3.4-5.0) gm/dl Globulin 3.0 (2.5-4.0) gm/dl Albumin/Globulin Ratio 0.8 L (0.9-2) TSH 2.240 (0.300-4.500) uIu/ml Urine Color Urine Appearance (Clear) Urine pH (4.5-7.5) Ur Specific [place] (1.000-1.030) Urine Protein (Negative) Urine Glucose (UA) (Negative) Urine Ketones (Negative) Urine Blood (Negative) Urine Nitrite (Negative) Urine Bilirubin (Negative) Urine Urobilinogen (Negative) Ur Leukocyte Esterase (Negative) Urine WBC (Auto) (0-5) /hpf Urine RBC (Auto) (0-4) /hpf U Hyaline Cast (Auto) (0-5) /lpf U Epithel Cells (Auto) (0-5) /lpf Urine Bacteria (Auto) (Negative) Salicylates Acetaminophen COVID-19 Eval Order SARS-CoV-2, RNA, NAAT (NEGATIVE) 08/26/20 08/26/20 08/26/20 Range/Units 19:44 20:13 20:13 WBC (4.8-10.8) K/uL RBC (4.7-6.1) M/uL Hgb (14.0-18.0) g/dL POC Hgb 11.9 L (14.0-18.0) g/dl Hct (42-52) % POC Hct 35 L (42-52) % MCV (80-100) fL MCH (25-34) pg MCHC (32-36) g/dL RDW Std Deviation (36.4-46.3) fL RDW Coeff of Cody (11.5-14.5) % Plt Count (130-400) K/uL MPV (7.4-10.4) fL Immature Gran % (Auto) % Neut % (Auto) % Lymph % (Auto) % Dawes % (Auto) % Eos % (Auto) % Baso % (Auto) % Neut # (Auto) (1.4-6.5) K/uL Lymph # (Auto) (1.2-3.4) K/uL Dawes # (Auto) (0.11-0.59) K/uL Eos # (Auto) (0-0.5) K/uL Baso # (Auto) (0-0.2) K/uL Immature Gran # (Auto) (0.00-0.02) K/uL PT (9.0-12.0) Seconds INR (0.9-1.1) APTT (21.0-31.0) Seconds PTT Ratio POC Sodium 131 L (135-144) mmol/L Sodium (136-145) mmol/L POC Potassium 3.7 (3.3-5.0) mmol/L Potassium (3.5-5.1) mmol/L POC Chloride 96 L (101-112) mmol/L Chloride (98-107) mmol/L Carbon Dioxide (21-32) mmol/L POC Total CO2 27 (24-31) mmol/L Anion Gap (3-11) POC Anion Gap 12.0 L (16-25) mmol/L POC BUN 39 H (7-18) mg/dl BUN (7-18) mg/dl Creatinine (0.6-1.4) mg/dl POC Creatinine 1.2 (0.6-1.3) mg/dl Est Cr Clr Drug Dosing ml/min Est GFR ( Amer) Est GFR (Non-Af Amer) BUN/Creatinine Ratio (10-20) Glucose (70-99) mg/dl POC Glucose (other) 141 H (70-99) mg/dl Calcium (8.5-10.1) mg/dl POC Ioniz Calcium Nuris 1.01 L (1.12-1.32) mmol/l Magnesium (1.8-2.4) mg/dl Total Bilirubin (0.2-1) mg/dl Direct Bilirubin (0-0.2) mg/dl AST (15-37) U/L ALT (12-78) U/L Alkaline Phosphatase (45-117) U/L Total Creatine Kinase (39-308) U/L Troponin I (0-0.045) ng/ml Total Protein (6.4-8.2) gm/dl Albumin (3.4-5.0) gm/dl Globulin (2.5-4.0) gm/dl Albumin/Globulin Ratio (0.9-2) TSH (0.300-4.500) uIu/ml Urine Color Urine Appearance (Clear) Urine pH (4.5-7.5) Ur Specific [place] (1.000-1.030) Urine Protein (Negative) Urine Glucose (UA) (Negative) Urine Ketones (Negative) Urine Blood (Negative) Urine Nitrite (Negative) Urine Bilirubin (Negative) Urine Urobilinogen (Negative) Ur Leukocyte Esterase (Negative) Urine WBC (Auto) (0-5) /hpf Urine RBC (Auto) (0-4) /hpf U Hyaline Cast (Auto) (0-5) /lpf U Epithel Cells (Auto) (0-5) /lpf Urine Bacteria (Auto) (Negative) Salicylates Acetaminophen COVID-19 Eval Order Covid19 IDNow atMKSC SARS-CoV-2, RNA, NAAT NEGATIVE (NEGATIVE) 08/26/20 08/26/20 08/26/20 Range/Units 21:30 21:33 21:33 WBC (4.8-10.8) K/uL RBC (4.7-6.1) M/uL Hgb (14.0-18.0) g/dL POC Hgb (14.0-18.0) g/dl Hct (42-52) % POC Hct (42-52) % MCV (80-100) fL MCH (25-34) pg MCHC (32-36) g/dL RDW Std Deviation (36.4-46.3) fL RDW Coeff of Cody (11.5-14.5) % Plt Count (130-400) K/uL MPV (7.4-10.4) fL Immature Gran % (Auto) % Neut % (Auto) % Lymph % (Auto) % Dawes % (Auto) % Eos % (Auto) % Baso % (Auto) % Neut # (Auto) (1.4-6.5) K/uL Lymph # (Auto) (1.2-3.4) K/uL Dawes # (Auto) (0.11-0.59) K/uL Eos # (Auto) (0-0.5) K/uL Baso # (Auto) (0-0.2) K/uL Immature Gran # (Auto) (0.00-0.02) K/uL PT (9.0-12.0) Seconds INR (0.9-1.1) APTT (21.0-31.0) Seconds PTT Ratio POC Sodium (135-144) mmol/L Sodium (136-145) mmol/L POC Potassium (3.3-5.0) mmol/L Potassium (3.5-5.1) mmol/L POC Chloride (101-112) mmol/L Chloride (98-107) mmol/L Carbon Dioxide (21-32) mmol/L POC Total CO2 (24-31) mmol/L Anion Gap (3-11) POC Anion Gap (16-25) mmol/L POC BUN (7-18) mg/dl BUN (7-18) mg/dl Creatinine (0.6-1.4) mg/dl POC Creatinine (0.6-1.3) mg/dl Est Cr Clr Drug Dosing ml/min Est GFR ( Amer) Est GFR (Non-Af Amer) BUN/Creatinine Ratio (10-20) Glucose (70-99) mg/dl POC Glucose (other) (70-99) mg/dl Calcium (8.5-10.1) mg/dl POC Ioniz Calcium Nuris (1.12-1.32) mmol/l Magnesium (1.8-2.4) mg/dl Total Bilirubin (0.2-1) mg/dl Direct Bilirubin 4.8 H (0-0.2) mg/dl AST (15-37) U/L ALT (12-78) U/L Alkaline Phosphatase (45-117) U/L Total Creatine Kinase (39-308) U/L Troponin I (0-0.045) ng/ml Total Protein (6.4-8.2) gm/dl Albumin (3.4-5.0) gm/dl Globulin (2.5-4.0) gm/dl Albumin/Globulin Ratio (0.9-2) TSH (0.300-4.500) uIu/ml Urine Color Dark Yellow Urine Appearance Cloudy A (Clear) Urine pH 6.5 (4.5-7.5) Ur Specific Torrance 1.013 (1.000-1.030) Urine Protein 1+ H (Negative) Urine Glucose (UA) Negative (Negative) Urine Ketones Negative (Negative) Urine Blood 3+ H (Negative) Urine Nitrite Negative (Negative) Urine Bilirubin Negative (Negative) Urine Urobilinogen Negative (Negative) Ur Leukocyte Esterase Negative (Negative) Urine WBC (Auto) 1-5 (0-5) /hpf Urine RBC (Auto) 10-30 H (0-4) /hpf U Hyaline Cast (Auto) 0 (0-5) /lpf U Epithel Cells (Auto) 5-10 H (0-5) /lpf Urine Bacteria (Auto) Negative (Negative) Salicylates Cancelled Acetaminophen Cancelled COVID-19 Eval Order SARS-CoV-2, RNA, NAAT (NEGATIVE) Administered Medications Finasteride (Finasteride 5 Mg Tab) 5 mg PO DAILY ROSALINDA Stop: 09/26/20 08:59 Last Admin: 08/27/20 07:28 Dose: 5 mg Documented by: [id number] Heparin Sodium (Porcine) (Heparin Sod 5,000 Unit/0.5 Ml Vial) 5,000 units SQ Q12 ROSALINDA Stop: 09/26/20 08:59 Last Admin: 08/27/20 07:28 Dose: 5,000 units Documented by: [id number] Potassium Chloride/Sodium Chloride (Normal Saline W/20 Meq Kcl) 20 meq in 1,000 mls @ 100 mls/hr IV .Q10H ROSALINDA Stop: 09/25/20 23:19 Last Admin: 08/27/20 08:59 Dose: 100 mls/hr Documented by: [id number] Infusion: 08/27/20 08:59 Dose: 100 mls/hr Documented by: [id number] Admin: 08/27/20 00:11 Dose: 100 mls/hr Documented by: [id number] Melatonin (Melatonin 3 Mg Tab) 3 mg PO HS PRN PRN Reason: Sleep Stop: 09/26/20 00:01 Last Admin: 08/27/20 00:14 Dose: 3 mg Documented by: [id number] Metoprolol Succinate (Metoprolol Succ 50mg Ext Rel Tab) 50 mg PO DAILY ROSALINDA Stop: 09/26/20 08:59 Last Admin: 08/27/20 07:29 Dose: 50 mg Documented by: [id number] Tramadol HCl (Tramadol Hcl 50 Mg Tablet) 50 mg PO QID PRN PRN Reason: Moderate Pain Stop: 09/25/20 23:19 Last Admin: 08/27/20 02:27 Dose: 50 mg Documented by: [id number] Discontinued Medications Sodium Chloride (Nss 1000ml) 1,000 mls @ 999 mls/hr IV .Q1H1M ROSALINDA Stop: 08/26/20 20:30 Last Infusion: 08/26/20 20:52 Dose: 0 mls/hr Documented by: [id number] Admin: 08/26/20 19:50 Dose: 999 mls/hr Documented by: [id number] Sodium Chloride (Nss 1000ml) 1,000 mls @ 999 mls/hr IV .Q1H1M ONE Stop: 08/26/20 22:23 Last Infusion: 08/26/20 22:39 Dose: 0 mls/hr Documented by: [id number] Admin: 08/26/20 21:34 Dose: 999 mls/hr Documented by: [id number] Sodium Chloride (Nss 1000ml) 1,000 mls @ 999 mls/hr IV .Q1H1M ONE Stop: 08/26/20 22:25 Last Infusion: 08/26/20 22:39 Dose: 0 mls/hr Documented by: [id number] Admin: 08/26/20 21:34 Dose: 999 mls/hr Documented by: [id number] Ceftriaxone Sodium 2,000 mg/ (Dextrose) 70 mls @ 100 mls/hr IV DAILY ROSALINDA; Protocol Stop: 09/06/20 08:59 Last Admin: 08/27/20 08:59 Dose: 100 mls/hr Documented by: [id number] Metoprolol Succinate (Metoprolol Succ 25mg Ext Rel Tab) 25 mg PO NOW STA Stop: 08/27/20 00:28 Last Admin: 08/27/20 00:46 Dose: 25 mg Documented by: [id number] Morphine Sulfate (Morphine Sulfate 4 Mg/Ml 1 Ml Carp\Vial) 4 mg IV Q30M PRN PRN Reason: Pain Stop: 09/09/20 21:35 Last Admin: 08/26/20 21:43 Dose: 4 mg Documented by: [id number] Ondansetron HCl (Ondansetron Inj 2 Mg/Ml 2 Ml Vial) 4 mg IV NOW STA Stop: 08/26/20 21:37 Last Admin: 08/26/20 21:43 Dose: 4 mg Documented by: [id number] Permethrin (Permethrin 5% Cr 60 Gm Tube) 1 appln EXT ONE ONE Stop: 08/26/20 22:43 Last Admin: 08/27/20 00:14 Dose: 1 appln Documented by: [id number] Imaging Data Radiologist's Impression: Patient: CHRISTIAN NEIL Admit Date: 08/26/20 MR#: [id number] Address1: [address] [place] [address] Acct ID:[id number] Address2: [place] [address] Date: 1955 [facility] Zip: [place] [address] Age: 65 Location: ED Sex: M Room/Bed: Att Phy: Diagnosis: WEAKNESS Shaina Phy: Anthony Figueredo III, MD Service Date: 08/26/20 Fam Phy: Interpreting Phy: Alexander Muñoz Admit Phy: Ordering Phy: Nishant Sue DO cc: ~ CT head/brain wo con CLINICAL HISTORY: 65 years-old Male with weakness. Acute weakness TECHNIQUE: Multiple axial CT images of the head were obtained without contrast. A dose lowering technique was utilized adhering to the principles of ALARA. COMPARISON: None. FINDINGS: No acute intracranial hemorrhage, midline shift, intracranial mass, hydrocephalus, territorial ischemia or abnormal extra-axial collection. Mild patchy white matter hypodensities suggestive of chronic microvascular ischemic disease. The calvarium is intact. The paranasal sinuses, mastoid air cells, and middle ear cavities are clear. IMPRESSION: No acute intracranial abnormality. ACT 112: Negative or not required by law. The above report was generated using voice recognition software. It may contain grammatical, syntax or spelling errors. Electronically signed by: Eloy Muñoz M.D. 08/26/2020 8:18 PM Dictated: 08/26/202015 Transcribed: 08/26/202015 Patient: CHRISTIAN NEIL Admit Date: 08/26/20 MR#: [id number] Address1: [address] [place] [address] Acct ID:[id number] Address2: [place] [address] Date: 1955 [facility] Zip: [place] [address] Age: 65 Location: ED Sex: M Room/Bed: Att Phy: Diagnosis: WEAKNESS Shaina Phy: Anthony Figueredo III, MD Service Date: 08/26/20 Fam Phy: Interpreting Phy: Alexander Muñoz Admit Phy: Ordering Phy: Nishant Sue DO cc: ~ ABDOMEN AND PELVIS CT WITHOUT CONTRAST CT DOSE: 1466.42 mGy.cm HISTORY: Acute right-sided flank pain flank pain TECHNIQUE: Multiaxial CT images of the abdomen and pelvis were performed without contrast. A dose lowering technique was utilized adhering to the principles of ALARA. COMPARISON STUDY: Renal ultrasound 10/07/2019 FINDINGS: Cardiomegaly with coronary artery calcifications. Clear lung bases. Study is degraded by respiratory motion artifact. There is no pneumatosis or pneumoperitoneum. Hepatomegaly with hepatic steatosis. No evidence of cirrhosis. Unremarkable spleen, pancreas, gallbladder and adrenal glands. Bilateral perinephric stranding. There is severe bilateral hydroureteronephrosis. The left ureterovesicular junction appears to be abnormally positioned laterally within the urinary bladder. Urinary bladder is distended measuring up to 16.7 cm. Coarse calcifications are noted within the prostate. Mild urinary bladder wall thickening. No renal or ureteral calculi or discrete obstructing mass identified. Calcified plaque of the aorta without aneurysm. Unremarkable IVC. No adenopathy. There is no bowel obstruction. Colonic diverticulosis without acute diverticulitis. Of the mid ascending colon with mild pericolonic stranding. Normal appendix. Tiny fat filled periumbilical hernia. No acute fracture. There are a few chronic rib fractures noted. IMPRESSION: 1. Marked urinary bladder distention with severe bilateral hydroureteronephrosis suggestive of urinary bladder outlet obstruction. 2. No renal or ureteral calculi or obstructing lesion identified. 3. Mild wall thickening of the mid ascending colon is likely secondary to partial distention. A mild nonspecific colitis or underlying lesion considered less likely 4. Colonic diverticulosis 5. Hepatomegaly with hepatic steatosis. 6. Cardiomegaly. 7. Additional findings as above. ACT 112: Negative or not required by law. The above report was generated using voice recognition software. It may contain grammatical, syntax or spelling errors. Electronically signed by: Eloy Muñoz M.D. 08/26/2020 8:26 PM Dictated: 08/26/202017 Transcribed: 08/26/202017 Patient: CHRISTIAN NEIL Admit Date: 08/26/20 MR#: [id number] Address1: [address] [place] [address] Acct ID:[id number] Address2: [address] Date: 1955 [facility] Zip: [place] [address] Age: 65 Location: ED Sex: M Room/Bed: Att Phy: Diagnosis: WEAKNESS Shaina Phy: Anthony Figueredo III, MD Service Date: 08/26/20 [facility] Phy: Interpreting Phy: Alexander Muñoz Admit Phy: Ordering Phy: Nishant Sue, DO cc: ~ XR chest 1V portable HISTORY: 65 years-old Male weakness acute weakness COMPARISON: Chest radiograph 10/07/2019 TECHNIQUE: Portable AP view of the chest FINDINGS: Cardiomediastinal and hilar silhouettes are within normal limits. No pneumot horax, pleural effusion, airspace consolidation or overt pulmonary edema. Degenerative changes of the shoulders and spine. IMPRESSION: No acute process. ACT 112: Negative or not required by law. The above report was generated using voice recognition software. It may contain grammatical, syntax or spelling errors. Electronically signed by: Eloy Muñoz M.D. 08/26/2020 7:52 PM Dictated: 08/26/201950 Transcribed: 08/26/201950 Blood Pressure Blood Pressure Findings: Elevated blood pressure Blood Pressure Disposition: further management by hospitalist Discharge Plan Visit Data Chief Complaint: Weakness Stated Complaint: WEAKNESS ED Provider: Nishant Sue Discharge Problem: Rhabdomyolysis, Abnormal LFTs, Hydroureteronephrosis, Elevated troponin I level, Acute urinary retention Patient Disposition: Admitted As Inpatient Condition: Good Discharge Instructions Interventions: ED Discharge Assessment Last Done: 08/26/20 22:58 Discharge Problem: Rhabdomyolysis Qualifiers: Rhabdomyolysis type: non-traumatic Qualified Code(s): M62.82 - Rhabdomyolysis
--- NOTE | 2020-08-26 19:54 | XRay Report ---
XR chest 1V portable HISTORY: 65 years-old Male weakness acute weakness COMPARISON: Chest radiograph 10/07/2019 TECHNIQUE: Portable AP view of the chest FINDINGS: Cardiomediastinal and hilar silhouettes are within normal limits. No pneumothorax, pleural effusion, airspace consolidation or overt pulmonary edema. Degenerative changes of the shoulders and spine. IMPRESSION: No acute process. ACT 112: Negative or not required by law. The above report was generated using voice recognition software. It may contain grammatical, syntax o r spelling errors. Electronically signed by: Eloy Muñoz M.D. 08/26/2020 7:52 PM
[2020-08-26 20:01] LABS: Hematocrit (blood only) 33.9 % (42-52); Hemoglobin 11.1 g/dL (14.0-18.0); Immature Granulocytes % (auto) 1.1 %; Lymphocytes # (auto) 0.63 K/uL (1.2-3.4); Mean Corpuscular Hemoglobin 30.5 pg (25-34); Mean Corpuscular Hgb Conc 32.7 g/dL (32-36); Mean Corpuscular Volume 93.1 fL (80-100); Mean Platelet Volume 11.3 fL (7.4-10.4); Monocytes # (auto) 0.45 K/uL (0.11-0.59); Neutrophils # (auto) 7.86 K/uL (1.4-6.5); Neutrophils % (auto) 86.9 %; Platelet Count 188 K/uL (130-400); RDW Coefficient of Variation 17.3 % (11.5-14.5); RDW Standard Deviation 58.7 fL (36.4-46.3); Red Blood Count 3.64 M/uL (4.7-6.1); White Blood Count 9.04 K/uL (4.8-10.8)
[2020-08-26 20:11] LABS: INR 1.3 (0.9-1.1); Partial Thromboplastin Ratio 0.8; Partial Thromboplastin Time 22.7 Seconds (21.0-31.0); Prothrombin Time 13.6 Seconds (9.0-12.0)
--- NOTE | 2020-08-26 20:19 | CT Scan Report ---
CT head/brain wo con CLINICAL HISTORY: 65 years-old Male with weakness. Acute weakness TECHNIQUE: Multiple axial CT images of the head were obtained without contrast. A dose lowering tech nique was utilized adhering to the principles of ALARA. COMPARISON: None. FINDINGS: No acute intracranial hemorrhage, midline shift, intracranial mass, hydrocephalus, territorial ischem ia or abnormal extra-axial collection. Mild patchy white matter hypodensities suggestive of chronic m icrovascular ischemic disease. The calvarium is intact. The paranasal sinuses, mastoid air cells, and middle ear cavities are clear . IMPRESSION: No acute intracranial abnormality. ACT 112: Negative or not required by law. The above report was generated using voice recognition software. It may contain grammatical, syntax o r spelling errors. Electronically signed by: Eloy Muñoz M.D. 08/26/2020 8:18 PM
--- NOTE | 2020-08-26 20:28 | CT Scan Report ---
ABDOMEN AND PELVIS CT WITHOUT CONTRAST CT DOSE: 1466.42 mGy.cm HISTORY: Acute right-sided flank pain flank pain TECHNIQUE: Multiaxial CT images of the abdomen and pelvis were performed without contrast. A dose lo wering technique was utilized adhering to the principles of ALARA. COMPARISON STUDY: Renal ultrasound 10/07/2019 FINDINGS: Cardiomegaly with coronary artery calcifications. Clear lung bases. Study is degraded by re spiratory motion artifact. There is no pneumatosis or pneumoperitoneum. Hepatomegaly with hepatic gabriella atosis. No evidence of cirrhosis. Unremarkable spleen, pancreas, gallbladder and adrenal glands. Bilateral perinephric stranding. There is severe bilateral hydroureteronephrosis. The left ureteroves icular junction appears to be abnormally positioned laterally within the urinary bladder. Urinary guerita dder is distended measuring up to 16.7 cm. Coarse calcifications are noted within the prostate. Mild urinary bladder wall thickening. No renal or ureteral calculi or discrete obstructing mass identified . Calcified plaque of the aorta without aneurysm. Unremarkable IVC. No adenopathy. There is no bowel obstruction. Colonic diverticulosis without acute diverticulitis. Of the mid ascending colon with mild pericolonic stranding. Normal appendix. Tiny fat filled periumbi lical hernia. No acute fracture. There are a few chronic rib fractures noted. IMPRESSION: 1. Marked urinary bladder distention with severe bilateral hydroureteronephrosis suggestive of urinar y bladder outlet obstruction. 2. No renal or ureteral calculi or obstructing lesion identified. 3. Mild wall thickening of the mid ascending colon is likely secondary to partial distention. A mild nonspecific colitis or underlying lesion considered less likely 4. Colonic diverticulosis 5. Hepatomegaly with hepatic steatosis. 6. Cardiomegaly. 7. Additional findings as above. ACT 112: Negative or not required by law. The above report was generated using voice recognition software. It may contain grammatical, syntax o r spelling errors. Electronically signed by: Eloy Muñoz M.D. 08/26/2020 8:26 PM
[2020-08-26 20:29] LABS: Albumin Level 2.3 gm/dl (3.4-5.0); BUN Creatinine Ratio 35.3 (10-20); Calcium 8.2 mg/dl (8.5-10.1); Est GFR (African American) 82.4; Est GFR (Non-African American) 71.1; Potassium 3.4 mmol/L (3.5-5.1)
[2020-08-26 20:52] LABS: Albumin Globulin Ratio 0.8 (0.9-2); Bilirubin,Total 6.8 mg/dl (0.2-1); Thyroid Stimulating Hormone 2.24 uIu/ml (0.300-4.500); Total Protein 5.3 gm/dl (6.4-8.2)
[2020-08-26 20:58] LABS: Troponin I 0.048 ng/ml (0-0.045)
[2020-08-26] MEDS ORDERED: SODIUM CHLORIDE 0.9% 1000ML 1,000 ML IV ONE ×2 (21:23→21:25)
[2020-08-26] MEDS ORDERED: ONDANSETRON INJ 2 MG/ML 2 ML VIAL IV STA (21:36)
[2020-08-26] MEDS ORDERED: MoRPHine SULFATE 4 MG/ML 1 ML CARP\\VIAL IV PRN (21:36)
[2020-08-26 22:31] LABS: Appearance Urine Cloudy (Clear); Bacteria Urine Automated Negative (Negative); Bilirubin Urine Negative (Negative); Blood Urine 3+ (Negative); Cast Urine Automated 0 /lpf (0-5); Color Urine Dark Yellow; Glucose Urine UA Negative (Negative); Ketones Urine Negative (Negative); Leukocyte Esterase Urine Negative (Negative); Nitrite Urine Negative (Negative); Protein Urine 1+ (Negative); Specific Gravity Urine 1.013 (1.000-1.030); Urobilinogen Urine Negative (Negative); pH Urine 6.5 (4.5-7.5)
[2020-08-26] MEDS ORDERED: PERMETHRIN 5% CR 60 GM TUBE EXT ONE (22:42)
[2020-08-26] MEDS ORDERED: ONDANSETRON INJ 2 MG/ML 2 ML VIAL IV PRN (23:20)
[2020-08-26] MEDS ORDERED: CETIRIZINE HCL 10 MG TABLET PO PRN (23:20)
[2020-08-27] MEDS ORDERED: ARTIFICIAL TEARS OP PRN
[2020-08-27] MEDS: NSS + 20MEQ KCL 20 MEQ/1,000 ML BAG IV SCH ×3 (00:11→20:44)
[2020-08-27] MEDS: MELATONIN 3 MG TAB PO PRN (00:14)
[2020-08-27] MEDS ORDERED: METOPROLOL SUCC 25MG EXT REL TAB PO STA (00:27)
[2020-08-27] MEDS: traMADol HCL 50 MG TABLET PO PRN (02:27)
--- NOTE | 2020-08-27 02:54 | History & Physical Report ---
Date of Service August 26, 2020 Assessment & Plan (1) Rhabdomyolysis: Elevated CK 12,578. Hydrate with IV fluids. Recheck laboratories serially May be because of abnormal LFTs as well. Present on Admission?: Yes (2) Elevated troponin I level: Troponin 0 0.048 upon admission. The patient will be admitted to telemetry for serial cardiac enzymes, serial EKG's, cardiac rhythm monitoring and a 2-D echocardiogram with Dopplers. More likely element of supply demand mismatch, type II IL Present on Admission?: Yes (3) Hypertension: Continue metoprolol succinate 50 mg p.o. daily Present on Admission?: Yes (4) BPH w urinary obs/LUTS: BPH with LUTS/hydroureteronephrosis bilaterally/bladder distention- Brennan catheter placed in ED. Follow urine culture and sensitivity Empiric ceftriaxone IV Increase tamsulosin from 0.4 to 0.8 mg p.o. at bedtime Consult urology Present on Admission?: Yes (5) Hydroureteronephrosis: See above Present on Admission?: Yes (6) Abnormal LFTs: CT abdomen and pelvis shows hepatomegaly, and hepatic steatosis. May be in part secondary to rhabdomyolysis Check acute hepatitis profile Hold atorvastatin and allopurinol for now If laboratories continue elevated, and/or worsen, will consult gastroenterology Present on Admission?: Yes (7) Bladder distention: See above Present on Admission?: Yes (8) Hepatic steatosis: See above Present on Admission?: Yes (9) Gout: Hold allopurinol for now. Present on Admission?: Yes History of Present Illness Chief Complaint: The patient presents to the emergency department with complaint of 1 week of generalized weakness, headaches, bilateral lower extremity weakness and generalized malaise. Primary Care Provider: Anthony Figueredo MD Patient is a 65-year-old male with a past medical history including erectile dysfunction, hypertension, gout, anemia, Achilles tendinitis, olecranon bursitis, and BPH with LUTS. He presents with symptoms as noted above. Allergies Allergy/AdvReac Type Severity Reaction Status Date / Time No Known Allergies Allergy Mild Verified 08/26/20 20:22 Home Medications Medication Instructions Recorded Confirmed Type atorvastatin 80 mg tablet 80 mg PO QPM #90 tab 09/02/19 08/26/20 Rx finasteride 5 mg tablet 5 mg PO DAILY #30 tab 11/01/19 08/26/20 Rx cromolyn 4 % eye drops 2 drops OP QID PRN #10 ml 11/09/19 08/26/20 Rx cetirizine 10 mg tablet 10 mg PO DAILY PRN #30 tab 11/17/19 08/26/20 Rx tamsulosin 0.4 mg capsule 0.4 mg PO HS 30 Days #90 cap 12/16/19 08/26/20 Rx metoprolol succinate 50 mg 50 mg PO DAILY #90 tab 02/23/20 08/26/20 Rx tablet,extended release 24 hr allopurinol 300 mg tablet 300 mg PO DAILY #30 tab 03/07/20 08/26/20 Rx sildenafil 50 mg tablet 50 mg PO DAILY PRN #10 tab 07/17/20 08/26/20 Rx hydrocodone 5 mg-acetaminophen 325 2 tab PO DAILY PRN #15 tab 08/08/20 08/26/20 Rx mg tablet tramadol 50 mg tablet 50 mg PO TID PRN #60 tab 08/10/20 08/26/20 Rx methylprednisolone 4 mg PO DIRECTED 08/26/20 08/26/20 History Past Med/Surg History Medical History (Updated 08/27/20 @ 02:47 by Humphrey Zamora MD) BPH w urinary obs/LUTS Gout attack Olecranon bursitis, right elbow Surgical History No pertinent past surgical history Family History Mother Coronary heart disease Hypertension Father Coronary heart disease Brother Migraine headache Denies family history of Ovarian cancer Prostate cancer Myocardial infarction Breast cancer Colonic polyp Social History Smoking Status: Never smoker Second Hand Exposure: No; Hx Alcohol Use: No Hx Substance Use: No Preferred Language: Romansh Communication Ability: Effective Visual Impairment: No Limitations Hearing Ability: Normal Cardiac Rn Required: No Beliefs That Will Affect Care: None marital status: Current Living Situation: Alone current occupational status: employed Other Information That Helps Us Care for You: No Feels Safe at Home: Yes Safety Concerns: Feels Safe At This Time Dental Care, Regularly: Yes Physical Activity Frequency: 3-4 Times per Week Assistive Devices: Glasses Review of Systems Review of Systems: The patient denies chest pain, palpitations, shortness of breath, dyspnea on exertion, cough, lower extremity swelling, sore throat, fevers, chills, sweats, nausea, vomiting, diarrhea , constipation, abdominal pain, pelvic pain, blood in urine or stool, lightheadedness, dizziness, headache, memory loss, loss of consciousness, rash, abnormal bruising or bleeding, focal weakness, numbness or tingling in arms or legs, generalized arthralgias or myalgias, back or neck pain, or night sweats. The review of systems is otherwise negative other than for that already noted above, and at least 10 systems have been reviewed. Physical Exam Physical Exam: The patient is awake, alert, well developed and well nourished, normocephalic and atraumatic, lying in bed and in no acute distress. HEENT--PERRL, EOMI, mucous membranes and oropharynx dry. Neck--supple. No JVD. No bruits. Thyroid normal, trachea midline, no adenopathy. Heart--normal S1 and S2. No murmurs, rubs or gallops. Lungs--clear bilaterally, no respiratory distress, no accessory muscle use. Abdomen--normal bowel sounds and soft. Nontender. Nondistended. Extremities--no cyanosis or clubbing. No edema. Dermatologic--normal skin turgor, normal color, no abnormal lymph nodes, no rash. Neurologic--cranial nerves II through XII grossly intact. Rheumatologic--normal range of motion. Psychiatric--normal affect. Results & Data Results & Data ([facility]) Vital Signs (Past 12 Hours) Vital Signs Temp Pulse Pulse Resp BP BP Pulse Ox 08/26/20 21:12 71 18 174/92 H 97 08/26/20 19:48 98 08/26/20 19:35 98.1 F 76 20 168/103 H 98 Laboratory Results Laboratory Results WBC 9.04 K/uL (4.8-10.8) 08/26/20 19:35 RBC 3.64 M/uL (4.7-6.1) L 08/26/20 19:35 Hgb 11.1 g/dL (14.0-18.0) L 08/26/20 19:35 Hct 33.9 % (42-52) L 08/26/20 19:35 MCV 93.1 fL (80-100) 08/26/20 19:35 MCH 30.5 pg (25-34) 08/26/20 19:35 MCHC 32.7 g/dL (32-36) 08/26/20 19:35 RDW Std Deviation 58.7 fL (36.4-46.3) H 08/26/20 19:35 RDW Coeff of [place] 17.3 % (11.5-14.5) H 08/26/20 19:35 Plt Count 188 K/uL (130-400) 08/26/20 19:35 MPV 11.3 fL (7.4-10.4) H 08/26/20 19:35 Immature Gran % (Auto) 1.1 % 08/26/20 19:35 Neut % (Auto) 86.9 % 08/26/20 19:35 Lymph % (Auto) 7.0 % 08/26/20 19:35 [place] % (Auto) 5.0 % 08/26/20 19:35 Eos % (Auto) 0.0 % 08/26/20 19:35 Baso % (Auto) 0.0 % 08/26/20 19:35 Neut # (Auto) 7.86 K/uL (1.4-6.5) H 08/26/20 19:35 Lymph # (Auto) 0.63 K/uL (1.2-3.4) L 08/26/20 19:35 [place] # (Auto) 0.45 K/uL (0.11-0.59) 08/26/20 19:35 Eos # (Auto) 0.00 K/uL (0-0.5) 08/26/20 19:35 Baso # (Auto) 0.00 K/uL (0-0.2) 08/26/20 19:35 Immature Gran # (Auto) 0.10 K/uL (0.00-0.02) H 08/26/20 19:35 PT 13.6 Seconds (9.0-12.0) H 08/26/20 19:35 INR 1.3 (0.9-1.1) H 08/26/20 19:35 APTT 22.7 Seconds (21.0-31.0) 08/26/20 19:35 PTT Ratio 0.8 08/26/20 19:35 Sodium 129 mmol/L (136-145) L 08/26/20 19:35 Potassium 3.4 mmol/L (3.5-5.1) L 08/26/20 19:35 Chloride 92 mmol/L (98-107) L 08/26/20 19:35 Carbon Dioxide 26 mmol/L (21-32) 08/26/20 19:35 Anion Gap 11.0 (3-11) 08/26/20 19:35 BUN 39 mg/dl (7-18) H 08/26/20 19:35 Creatinine 1.10 mg/dl (0.6-1.4) 08/26/20 19:35 Est Cr Clr Drug Dosing 76.0 ml/min 08/26/20 19:35 Est GFR ( Amer) 82.4 08/26/20 19:35 Est GFR (Non-Af Amer) 71.1 08/26/20 19:35 BUN/Creatinine Ratio 35.3 (10-20) H 08/26/20 19:35 Glucose 146 mg/dl (70-99) H 08/26/20 19:35 Calcium 8.2 mg/dl (8.5-10.1) L 08/26/20 19:35 Magnesium 2.0 mg/dl (1.8-2.4) 08/26/20 19:35 Total Bilirubin 6.8 mg/dl (0.2-1) H 08/26/20 19:35 Direct Bilirubin 4.8 mg/dl (0-0.2) H 08/26/20 21:33 AST 1241 U/L (15-37) H 08/26/20 19:35 ALT 527 U/L (12-78) H 08/26/20 19:35 Alkaline Phosphatase 915 U/L (45-117) H 08/26/20 19:35 Total Creatine Kinase 66607 U/L (39-308) H 08/26/20 19:35 Troponin I 0.048 ng/ml (0-0.045) H* 08/26/20 19:35 Total Protein 5.3 gm/dl (6.4-8.2) L 08/26/20 19:35 Albumin 2.3 gm/dl (3.4-5.0) L 08/26/20 19:35 Globulin 3.0 gm/dl (2.5-4.0) 08/26/20 19:35 Albumin/Globulin Ratio 0.8 (0.9-2) L 08/26/20 19:35 TSH 2.240 uIu/ml (0.300-4.500) 08/26/20 19:35 Urine Color Dark Yellow 08/26/20 21:30 Urine Appearance Cloudy (Clear) A 08/26/20 21: Urine pH 6.5 (4.5-7.5) 08/26/20 21:30 Ur Specific [place] 1.013 (1.000-1.030) 08/26/20 21:30 Urine Protein 1+ (Negative) H 08/26/20 21:30 Urine Glucose (UA) Negative (Negative) 08/26/20 21: Urine Ketones Negative (Negative) 08/26/20 21:30 Urine Blood 3+ (Negative) H 08/26/20 21:30 Urine Nitrite Negative (Negative) 08/26/20 21:30 Urine Bilirubin Negative (Negative) 08/26/20 21:30 Urine Urobilinogen Negative (Negative) 08/26/20 21:30 Ur Leukocyte Esterase Negative (Negative) 08/26/20 21:30 Urine WBC (Auto) 1-5 /hpf (0-5) 08/26/20 21:30 Urine RBC (Auto) 10-30 /hpf (0-4) H 08/26/20 21:30 U Hyaline Cast (Auto) 0 /lpf (0-5) 08/26/20 21:30 U Epithel Cells (Auto) 5-10 /lpf (0-5) H 08/26/20 21:30 Urine Bacteria (Auto) Negative (Negative) 08/26/20 21:30 Salicylates Cancelled 08/26/20 21:33 Acetaminophen Cancelled 08/26/20 21:33 COVID-19 Eval Order Covid19 IDNow [facility] 08/26/20 20:13 Hepatitis C Ab Screen Neg (Neg) 08/26/20 22:54 SARS-CoV-2, RNA, NAAT NEGATIVE (NEGATIVE) 08/26/20 20:13 Diagnostic Findings [facility] [address], [phone] XRay Report Patient: CHRISTIAN NEIL Date: 08/26/20MR#: [id number]: [id number] RDAcct ID:[id number]: [address]Birth Date: 1955[facility] [place] [place] [facility] [facility] [place] [id number]: 65Location: EDSex: MRoom/Bed:Att Phy:Diagnosis: WEAKNESSPri Phy: Anthony Figueredo III, MDService Date: 08/26/20Fa Phy:Interpreting Phy: Alexander MuñozAdmit Phy: Ordering Phy: Nishant Sue DO cc: ~ XR chest 1V portable HISTORY: 65 years-old Male weakness acute weakness COMPARISON: Chest radiograph 10/07/2019 TECHNIQUE: Portable AP view of the chest FINDINGS: Cardiomediastinal and hilar silhouettes are within normal limits. No pneumothorax, pleural effusion, airspace consolidation or overt pulmonary edema. Degenerative changes of the shoulders and spine. IMPRESSION: No acute process. ACT 112: Negative or not required by law. The above report was generated using voice recognition software. It may contain grammatical, syntax or spelling errors. Electronically signed by: Eloy Muñoz M.D. 08/26/2020 7:52 PM Dictated: 08/26/201950Transcribed: 08/26/201950 [facility] [address], [phone] CT Scan Report Patient: CHRISTIAN NEIL Date: 08/26/20MR#: [id number]: [id number] RDAc[address] ID:[id number]: [address]Birth Date: 1955[facility] Zip: [place] [facility],[place] [id number]: 65Location: EDSex: MRoom/Bed:Att Phy:Diagnosis: WEAKNESSPri Phy: Anthony Figueredo III, MDService Date: 08/26/20Fa Phy:Interpreting Phy: Alexander MuñozAdmtip Phy: Ordering Phy: Nishant Sue DO cc: ~ ABDOMEN AND PELVIS CT WITHOUT CONTRAST CT DOSE: 1466.42 mGy.cm HISTORY: Acute right-sided flank pain flank pain TECHNIQUE: Multiaxial CT images of the abdomen and pelvis were performed without contrast. A dose lowering technique was utilized adhering to the principles of ALARA. COMPARISON STUDY: Renal ultrasound 10/07/2019 FINDINGS: Cardiomegaly with coronary artery calcifications. Clear lung bases. Study is degraded by respiratory motion artifact. There is no pneumatosis or pneumoperitoneum. Hepatomegaly with hepatic steatosis. No evidence of cirrhosis. Unremarkable spleen, pancreas, gallbladder and adrenal glands. Bilateral perinephric stranding. There is severe bilateral hydroureteronephrosis. The left ureterovesicular junction appears to be abnormally positioned laterally within the urinary bladder. Urinary bladder is distended measuring up to 16.7 cm. Coarse calcifications are noted within the prostate. Mild urinary bladder wall thickening. No renal or ureteral calculi or discrete obstructing mass identified. Calcified plaque of the aorta without aneurysm. Unremarkable IVC. No adenopathy. There is no bowel obstruction. Colonic diverticulosis without acute diverticulitis. Of the mid ascending colon with mild pericolonic stranding. Normal appendix. Tiny fat filled periumbilical hernia. No acute fracture. There are a few chronic rib fractures noted. IMPRESSION: 1. Marked urinary bladder distention with severe bilateral hydroureteronephrosis suggestive of urinary bladder outlet obstruction. 2. No renal or ureteral calculi or obstructing lesion identified. 3. Mild wall thickening of the mid ascending colon is likely secondary to partial distention. A mild nonspecific colitis or underlying lesion considered less likely 4. Colonic diverticulosis 5. Hepatomegaly with hepatic steatosis. 6. Cardiomegaly. 7. Additional findings as above. ACT 112: Negative or not required by law. The above report was generated using voice recognition software. It may contain grammatical, syntax or spelling errors. Electronically signed by: Eloy Muñoz M.D. 08/26/2020 8:26 PM Dictated: 08/26/202017Transcribed: 08/26/20 2018 [facility] [address], [phone] CT Scan Report Patient: CHRISTIAN NEIL Date: 08/26/20#: [id number]: [id number] RDAcct ID:[id number]: [address]: 1955[facility] [place] Zip: [place] [address]Ged: 65Location: EDSex: MRoom/Bed:Att Phy:Diagnosis: WEAKNESSPri Phy: Anthony Figueredo, III, MDService Date: 08/26/20Fam Phy:Interpreting Phy: Alexander MuñozAdmit Phy: Ordering Phy: Nishant Sue DO cc: ~ CT head/brain wo con CLINICAL HISTORY: 65 years-old Male with weakness. Acute weakness TECHNIQUE: Multiple axial CT images of the head were obtained without contrast. A dose lowering technique was utilized adhering to the principles of ALARA. COMPARISON: None. FINDINGS: No acute intracranial hemorrhage, midline shift, intracranial mass, hydrocephalus, territorial ischemia or abnormal extra-axial collection. Mild patchy white matter hypodensities suggestive of chronic microvascular ischemic disease. The calvarium is intact. The paranasal sinuses, mastoid air cells, and middle ear cavities are clear. IMPRESSION: No acute intracranial abnormality. ACT 112: Negative or not required by law. The above report was generated using voice recognition software. It may contain grammatical, syntax or spelling errors. Electronically signed by: Eloy Muñoz M.D. 08/26/2020 8:18 PM Dictated: 08/26/202015Transcribed: 08/26/202015 Code Status & VTE Plan Code Status Full code VTE Prophylaxis Plan VTE Prophylaxis will be ordered: Yes PG Care Time/CCT Total # of Minutes Spent Total Time Spent with Patient: Total time spent is greater than 50% in coordination of care (as documented) at patient's floor/unit and/or counseling patient: Coding Level of Care Code 29453 Initial Inpt Care Lvl 3 Diagnoses Rhabdomyolysis M62.82 Elevated troponin I level R77.8 Hypertension I10 BPH w urinary obs/LUTS N40.1; N13.8 Hydroureteronephrosis N13.30 Abnormal LFTs R94.5 Bladder distention N32.89 Hepatic steatosis K76.0 Gout M10.9
[2020-08-27 07:11] LABS: iSTAT Creatinine 1.2 mg/dl (0.6-1.3); iSTAT Hemoglobin 11.9 g/dl (14.0-18.0); iSTAT Ionized Calcium 1.01 mmol/l (1.12-1.32); iSTAT Potassium 3.7 mmol/L (3.3-5.0)
[2020-08-27] MEDS: HEPARIN SOD 5,000 UNIT/0.5 ML VIAL SQ SCH ×2 (07:28→20:49)
[2020-08-27] MEDS: FINASTERIDE 5 MG TAB PO SCH (07:28)
[2020-08-27] MEDS: METOPROLOL SUCC 50MG EXT REL TAB PO SCH (07:29)
[2020-08-27 07:59] LABS: Hematocrit (blood only) 29.1 % (42-52); Hemoglobin 9.6 g/dL (14.0-18.0); Immature Granulocytes # (auto) 0.04 K/uL (0.00-0.02); Immature Granulocytes % (auto) 0.5 %; Lymphocytes % (auto) 4.9 %; Mean Corpuscular Hemoglobin 30.5 pg (25-34); Mean Corpuscular Volume 92.4 fL (80-100); Mean Platelet Volume 10.8 fL (7.4-10.4); Monocytes # (auto) 0.54 K/uL (0.11-0.59); Monocytes % (auto) 6.6 %; Neutrophils # (auto) 7.17 K/uL (1.4-6.5); Platelet Count 168 K/uL (130-400); RDW Coefficient of Variation 17.1 % (11.5-14.5); Red Blood Count 3.15 M/uL (4.7-6.1); White Blood Count 8.15 K/uL (4.8-10.8)
[2020-08-27 08:48] LABS: Albumin Globulin Ratio 0.7 (0.9-2); BUN Creatinine Ratio 26.2 (10-20); Bilirubin,Total 7.1 mg/dl (0.2-1); Calcium 8.4 mg/dl (8.5-10.1); Creatinine Clr Calc Pharmacy 75.8 ml/min; Est GFR (African American) 89.2; Est GFR (Non-African American) 76.9; Globulin 2.7 gm/dl (2.5-4.0); Magnesium 1.8 mg/dl (1.8-2.4); Potassium 3.6 mmol/L (3.5-5.1); Total Protein 4.7 gm/dl (6.4-8.2); Troponin I 0.043 ng/ml (0-0.045)
[2020-08-27] MEDS ORDERED: cefTRIAXone SODIUM 2,000 MG in DEXTROSE 5% 50 ML IV SCH (09:00)
--- NOTE | 2020-08-27 10:27 | Gastrointestinal Consultation ---
Date of Consultation August 27, 2020 Assessment & Plan (1) Abnormal LFTs: The pattern of LFTs is mixed hepatocellular/cholestatic with normal INR and seems to be classically consistent with DILI related to recent ABx use (Augmentin per records, though patient thinks it was Erythromycin) in the setting of underlying NAFLD, anyhow both causes idiosyncratic metabolic type of DILI. His INR is normal which is reassuring. It is well documented in the literature that Rhabdomyolysis develops after Augmentin related DILI in patients using Atorvastatin and patient is using high dose (80 mg). Also if he used Erythromycin then this potentiates Atorvastatin effect and causes rhabdo via CY. Other DDx is viral Hepatitis. Patient should avoid using the above mentioned antibiotics. Hold Statins for now and need to clarify the need to use such a high dose. IV Hydration. Avoid Hepatotoxics. Monitor INR. Check Viral Hep panel including EBV and HSV and obtain Ultrasound liver with doppler. This will help calculate his RUCAM score. Repeat LFTs as OP in 1- 2 weeks, if not improved then would consider Liver Bx. (2) Anemia: Needs EGD/colonoscopy as OP if not previously celso. (3) Hepatic steatosis: Follow up as Outpatient, will likely need a fibroscan to establish fibrosis. History of Present Illness Attending Physician: Trice Blank DO 65 years old male patient with below medical comorbids including dyslipidemia, gout, BPH, presented to the hospital with fatigue, found to have RACHID, abnormal LFTs and rhabdomyolysis. GI consulted for abnormal LFTs. Patient denies any abdominal pain, nausea or vomiting. Has dark colored urine, no melena or rectal bleeding. 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 Few weeks ago he completed a course of Abx for acute sinusitis. After wards he thinks he had a gout flare for which he was recently given a course of Prednisolone. Also has a skin rash on his arms which thought to be related to mites. CT scan showed distended urinary bladder for which he was started on Ceftriaxone for ? UTI. Allergies Allergy/AdvReac Type Severity Reaction Status Date / Time No Known Allergies Allergy Mild Verified 08/26/20 20:22 Home Medications Medication Instructions Recorded Confirmed Type atorvastatin 80 mg tablet 80 mg PO QPM #90 tab 09/02/19 08/26/20 Rx finasteride 5 mg tablet 5 mg PO DAILY #30 tab 11/01/19 08/26/20 Rx cromolyn 4 % eye drops 2 drops OP QID PRN #10 ml 11/09/19 08/26/20 Rx cetirizine 10 mg tablet 10 mg PO DAILY PRN #30 tab 11/17/19 08/26/20 Rx tamsulosin 0.4 mg capsule 0.4 mg PO HS 30 Days #90 cap 12/16/19 08/26/20 Rx metoprolol succinate 50 mg 50 mg PO DAILY #90 tab 02/23/20 08/26/20 Rx tablet,extended release 24 hr allopurinol 300 mg tablet 300 mg PO DAILY #30 tab 03/07/20 08/26/20 Rx sildenafil 50 mg tablet 50 mg PO DAILY PRN #10 tab 07/17/20 08/26/20 Rx hydrocodone 5 mg-acetaminophen 325 2 tab PO DAILY PRN #15 tab 08/08/20 08/26/20 Rx mg tablet tramadol 50 mg tablet 50 mg PO TID PRN #60 tab 08/10/20 08/26/20 Rx methylprednisolone 4 mg PO DIRECTED 08/26/20 08/26/20 History Patient History Medical History (Updated 08/27/20 @ 02:47 by Humphrey Zamora MD) BPH w urinary obs/LUTS Gout attack Olecranon bursitis, right elbow Surgical History No pertinent past surgical history Family History Mother Coronary heart disease Hypertension Father Coronary heart disease Brother Migraine headache Denies family history of Ovarian cancer Prostate cancer Myocardial infarction Breast cancer Colonic polyp Social History Smoking Status: Never smoker Second Hand Exposure: No; Hx Alcohol Use: No Hx Substance Use: No Preferred Language: Macedonian Communication Ability: Effective Visual Impairment: No Limitations Hearing Ability: Normal Hand Presser Required: No Beliefs That Will Affect Care: None marital status: Current Living Situation: Alone current occupational status: employed Other Information That Helps Us Care for You: No Feels Safe at Home: Yes Safety Concerns: Feels Safe At This Time Dental Care, Regularly: Yes Physical Activity Frequency: 3-4 Times per Week Assistive Devices: Glasses Review of Systems Constitutional: no fever, no chills, no fatigue and no weight loss Eyes: no eye pain and no worsening vision Ear, Nose, Mouth, Throat: no tinnitus, no dizziness, no nasal discharge and no epistaxis Respiratory: no cough, no dyspnea, no dyspnea on exertion and no wheezing Cardiovascular: no chest pain, no orthopnea, no palpitations and no edema Gastrointestinal: as per Subjective / HPI Musculoskeletal: no stiffness and no myalgia Neurologic: no localized weakness, no paralysis, no tremor(s) and no headache(s) Endocrine: no polydipsia and no polyuria Hematologic / Lymphatic: no easy bleeding and no night sweats Physical Exam Constitutional: + well hydrated, cooperative and comfortable Eyes: PERRL, conjunctivae normal, anicteric sclerae ENMT: external ear and nose normal, oropharynx normal Neck: normal visual inspection and trachea midline Respiratory: normal respiratory effort, lungs clear to auscultation Auscultation: no wheezes Cardiovascular: RRR, no murmur, no edema Gastrointestinal (Abdomen): normal bowel sounds, soft, nontender, no hepatosplenomegaly Musculoskeletal: no cyanosis or clubbing, extremities motor strength 5/5 Skin: no rashes, warm and dry Neurologic: awake; no focal motor deficits Motor/Sensory: no tremor Results & Data ([facility]) Vital Signs (Past 12 Hours) Vital Signs Temp Pulse Pulse Resp BP BP Pulse Ox 08/27/20 07:49 36.8 C 68 18 180/76 H 96 08/27/20 02:25 36.7 C 89 161/87 H 98 08/27/20 00:15 78 171/88 H 08/26/20 23:05 36.7 C 88 20 181/97 H 95 08/26/20 22:58 77 18 176/93 H 98 Laboratory Results Laboratory Results - last 24 hr 08/26/20 08/26/20 08/26/20 19:35 19:35 19:35 WBC 9.04 RBC 3.64 L Hgb 11.1 L POC Hgb Hct 33.9 L POC Hct MCV 93.1 MCH 30.5 MCHC 32.7 RDW Std Deviation 58.7 H RDW Coeff of Cody 17.3 H Plt Count 188 MPV 11.3 H Immature Gran % (Auto) 1.1 Neut % (Auto) 86.9 Lymph % (Auto) 7.0 Callahan % (Auto) 5.0 Eos % (Auto) 0.0 Baso % (Auto) 0.0 Neut # (Auto) 7.86 H Lymph # (Auto) 0.63 L Callahan # (Auto) 0.45 Eos # (Auto) 0.00 Baso # (Auto) 0.00 Immature Gran # (Auto) 0.10 H PT 13.6 H INR 1.3 H APTT 22.7 PTT Ratio 0.8 POC Sodium Sodium 129 L POC Potassium Potassium 3.4 L POC Chloride Chloride 92 L Carbon Dioxide 26 POC Total CO2 Anion Gap 11.0 POC Anion Gap POC BUN BUN 39 H Creatinine 1.10 POC Creatinine Est Cr Clr Drug Dosing 76.0 Est GFR ( Amer) 82.4 Est GFR (Non-Af Amer) 71.1 BUN/Creatinine Ratio 35.3 H Glucose 146 H POC Glucose (other) Calcium 8.2 L POC Ioniz Calcium Nuris Magnesium 2.0 Total Bilirubin 6.8 H Direct Bilirubin AST 1241 H ALT 527 H Alkaline Phosphatase 915 H Total Creatine Kinase 66020 H Troponin I 0.048 H* Total Protein 5.3 L Albumin 2.3 L Globulin 3.0 Albumin/Globulin Ratio 0.8 L TSH 2.240 Urine Color Urine Appearance Urine pH Ur Specific [place] Urine Protein Urine Glucose (UA) Urine Ketones Urine Blood Urine Nitrite Urine Bilirubin Urine Urobilinogen Ur Leukocyte Esterase Urine WBC (Auto) Urine RBC (Auto) U Hyaline Cast (Auto) U Epithel Cells (Auto) Urine Bacteria (Auto) Salicylates Acetaminophen COVID-19 Eval Order Hepatitis A IgM Ab Hep B Core IgM Ab Hepatitis C Ab Screen SARS-CoV-2, RNA, NAAT Miscellaneous Test Miscellaneous Test 2 08/26/20 08/26/20 08/26/20 19:44 20:13 20:13 WBC RBC Hgb POC Hgb 11.9 L Hct POC Hct 35 L MCV MCH MCHC RDW Std Deviation RDW Coeff of [place] Plt Count MPV Immature Gran % (Auto) Neut % (Auto) Lymph % (Auto) [place]ahan % (Auto) Eos % (Auto) Baso % (Auto) Neut # (Auto) Lymph # (Auto) [place]ahan # (Auto) Eos # (Auto) Baso # (Auto) Immature Gran # (Auto) PT INR APTT PTT Ratio POC Sodium 131 L Sodium POC Potassium 3.7 Potassium POC Chloride 96 L Chloride Carbon Dioxide POC Total CO2 27 Anion Gap POC Anion Gap 12.0 L POC BUN 39 H BUN Creatinine POC Creatinine 1.2 Est Cr Clr Drug Dosing Est GFR ( Amer) Est GFR (Non-Af Amer) BUN/Creatinine Ratio Glucose POC Glucose (other) 141 H Calcium POC Ioniz Calcium Nuris 1.01 L Magnesium Total Bilirubin Direct Bilirubin AST ALT Alkaline Phosphatase Total Creatine Kinase Troponin I Total Protein Albumin Globulin Albumin/Globulin Ratio TSH Urine Color Urine Appearance Urine pH Ur Specific [place] Urine Protein Urine Glucose (UA) Urine Ketones Urine Blood Urine Nitrite Urine Bilirubin Urine Urobilinogen Ur Leukocyte Esterase Urine WBC (Auto) Urine RBC (Auto) U Hyaline Cast (Auto) U Epithel Cells (Auto) Urine Bacteria (Auto) Salicylates Acetaminophen COVID-19 Eval Order [facility] Hepatitis A IgM Ab Hep B Core IgM Ab Hepatitis C Ab Screen SARS-CoV-2, RNA, NAAT NEGATIVE Miscellaneous Test Miscellaneous Test 2 08/26/20 08/26/20 08/26/20 21:30 21:33 21:33 WBC RBC Hgb POC Hgb Hct POC Hct MCV MCH MCHC RDW Std Deviation RDW Coeff of [place] Plt Count MPV Immature Gran % (Auto) Neut % (Auto) Lymph % (Auto) [place] % (Auto) Eos % (Auto) Baso % (Auto) Neut # (Auto) Lymph # (Auto) [place]ahan # (Auto) Eos # (Auto) Baso # (Auto) Immature Gran # (Auto) PT INR APTT PTT Ratio POC Sodium Sodium POC Potassium Potassium POC Chloride Chloride Carbon Dioxide POC Total CO2 Anion Gap POC Anion Gap POC BUN BUN Creatinine POC Creatinine Est Cr Clr Drug Dosing Est GFR ( Amer) Est GFR (Non-Af Amer) BUN/Creatinine Ratio Glucose POC Glucose (other) Calcium POC Ioniz Calcium Nuris Magnesium Total Bilirubin Direct Bilirubin 4.8 H AST ALT Alkaline Phosphatase Total Creatine Kinase Troponin I Total Protein Albumin Globulin Albumin/Globulin Ratio TSH Urine Color Dark Yellow Urine Appearance Cloudy A Urine pH 6.5 Ur Specific [place] 1.013 Urine Protein 1+ H Urine Glucose (UA) Negative Urine Ketones Negative Urine Blood 3+ H Urine Nitrite Negative Urine Bilirubin Negative Urine Urobilinogen Negative Ur Leukocyte Esterase Negative Urine WBC (Auto) 1-5 Urine RBC (Auto) 10-30 H U Hyaline Cast (Auto) 0 U Epithel Cells (Auto) 5-10 H Urine Bacteria (Auto) Negative Salicylates Cancelled Acetaminophen Cancelled COVID-19 Eval Order Hepatitis A IgM Ab Hep B Core IgM Ab Hepatitis C Ab Screen SARS-CoV-2, RNA, NAAT Miscellaneous Test Miscellaneous Test 2 08/26/20 08/26/20 08/27/20 21:33 22:54 07:41 WBC 8.15 RBC 3.15 L Hgb 9.6 L POC Hgb Hct 29.1 L POC Hct MCV 92.4 MCH 30.5 MCHC 33.0 RDW Std Deviation 57.0 H RDW Coeff of Cody 17.1 H Plt Count 168 MPV 10.8 H Immature Gran % (Auto) 0.5 Neut % (Auto) 88.0 Lymph % (Auto) 4.9 Callahan % (Auto) 6.6 Eos % (Auto) 0.0 Baso % (Auto) 0.0 Neut # (Auto) 7.17 H Lymph # (Auto) 0.40 L [place] # (Auto) 0.54 Eos # (Auto) 0.00 Baso # (Auto) 0.00 Immature Gran # (Auto) 0.04 H PT INR APTT PTT Ratio POC Sodium Sodium POC Potassium Potassium POC Chloride Chloride Carbon Dioxide POC Total CO2 Anion Gap POC Anion Gap POC BUN BUN Creatinine POC Creatinine Est Cr Clr Drug Dosing Est GFR ( Amer) Est GFR (Non-Af Amer) BUN/Creatinine Ratio Glucose POC Glucose (other) Calcium POC Ioniz Calcium Nuris Magnesium Total Bilirubin Direct Bilirubin AST ALT Alkaline Phosphatase Total Creatine Kinase Troponin I Total Protein Albumin Globulin Albumin/Globulin Ratio TSH Urine Color Urine Appearance Urine pH Ur Specific [place] Urine Protein Urine Glucose (UA) Urine Ketones Urine Blood Urine Nitrite Urine Bilirubin Urine Urobilinogen Ur Leukocyte Esterase Urine WBC (Auto) Urine RBC (Auto) U Hyaline Cast (Auto) U Epithel Cells (Auto) Urine Bacteria (Auto) Salicylates Acetaminophen COVID-19 Eval Order Hepatitis A IgM Ab Hep B Core IgM Ab Hepatitis C Ab Screen Neg SARS-CoV-2, RNA, NAAT Miscellaneous Test Pending Miscellaneous Test 2 Pending 08/27/20 08/27/20 07:41 07:41 WBC RBC Hgb POC Hgb Hct POC Hct MCV MCH MCHC RDW Std Deviation RDW Coeff of [place] Plt Count MPV Immature Gran % (Auto) Neut % (Auto) Lymph % (Auto) [place]ahan % (Auto) Eos % (Auto) Baso % (Auto) Neut # (Auto) Lymph # (Auto) Callahan # (Auto) Eos # (Auto) Baso # (Auto) Immature Gran # (Auto) PT INR APTT PTT Ratio POC Sodium Sodium 132 L POC Potassium Potassium 3.6 POC Chloride Chloride 99 Carbon Dioxide 22 POC Total CO2 Anion Gap 11.0 POC Anion Gap POC BUN BUN 27 H Creatinine 1.03 POC Creatinine Est Cr Clr Drug Dosing 75.8 Est GFR ( Amer) 89.2 Est GFR (Non-Af Amer) 76.9 BUN/Creatinine Ratio 26.2 H Glucose 99 POC Glucose (other) Calcium 8.4 L POC Ioniz Calcium Nuris Magnesium 1.8 Total Bilirubin 7.1 H Direct Bilirubin AST 1180 H ALT 475 H Alkaline Phosphatase 751 H Total Creatine Kinase Troponin I 0.043 Total Protein 4.7 L Albumin 2.0 L Globulin 2.7 Albumin/Globulin Ratio 0.7 L TSH Urine Color Urine Appearance Urine pH Ur Specific [place] Urine Protein Urine Glucose (UA) Urine Ketones Urine Blood Urine Nitrite Urine Bilirubin Urine Urobilinogen Ur Leukocyte Esterase Urine WBC (Auto) Urine RBC (Auto) U Hyaline Cast (Auto) U Epithel Cells (Auto) Urine Bacteria (Auto) Salicylates Acetaminophen COVID-19 Eval Order Hepatitis A IgM Ab Pending Hep B Core IgM Ab Pending Hepatitis C Ab Screen SARS-CoV-2, RNA, NAAT Miscellaneous Test Miscellaneous Test 2
--- NOTE | 2020-08-27 11:11 | Electrocardiogram Report ---
Test Reason : Blood Pressure : / mmHG Vent. Rate : 073 BPM Atrial Rate : 073 BPM P-R Int : 140 ms QRS Dur : 118 ms QT Int : 394 ms P-R-T Axes : 014 -09 022 degrees QTc Int : 434 ms Normal sinus rhythm early transition Non-specific intra-ventricular conduction delay Borderline ECG When compared with ECG of 07-OCT-2019 21:49, Premature ventricular complexes is no longer Present Confirmed by Kenan Fernandez ([id number]) on 08/27/2020 11:11:00 AM Referred By: REFERRED SELF Confirmed By:Kenan Fernandez
--- NOTE | 2020-08-27 12:15 | Urology Consultation ---
Date of Consultation August 27, 2020 Assessment & Plan (1) Acute urinary retention: Patient has history of similar episode approximately a year ago. Is severely deconditioned and weak from recent illness and is being worked up for GI, liver, rhabdomyolysis, and other issues. Patient has extreme large prostate with obstruction. Had catheter placed without major issue. Is currently tolerating. Patient had previously been started on finasteride. Will likely again need to consider different interventions versus surgical intervention versus other procedure for management of extreme large prostate with obstructive issues. Has continued hydronephrosis with concern for upper tract damage with possible development of kidney related issues due to long-term chronic obstruction. At this point patient is dealing with multiple other acute issues. We will continue with Brennan catheter drainage for likely 10 to 14 days and plan to follow-up in the office to further discuss options. Patient would be at high risk for further issues related to retention. Likely multifactorial at this point with acute exacerbation of severe chronic issues. Patient's complicated medical and surgical history is reviewed and summarized above. All imaging was reviewed interpreted by myself and agree with reading of distention of bladder and bilateral hydronephrosis. Follow-up as an outpatient. With catheter in place. (2) Hydroureteronephrosis: (3) Rhabdomyolysis: (4) Abnormal LFTs: History of Present Illness Attending Physician: Trice Blank DO History of Present Illness Consult for urinary issues with incomplete emptying and possible retention. History of retention episode with hydronephrosis in the past. Has extreme large prostate with trilobar enlargement and a large median lobe which caused considerable obstruction. Was started on finasteride and was set for follow-up however due to the Covid issues has not been seen in almost 1 year. Prior to issues a year ago, patient had slowly increasing urinary issues. Over the last few weeks has had considerable issues with weakness ill feelings. Found to have considerable elevated LFTs and concern for rhabdomyolysis. Patient is being monitored and assessed by the primary team including GI. Incidentally found to have bilateral hydronephrosis and bladder distention. Patient has mild to moderate discomfort in pelvis and groin going to back and side in waves. Is dealing with acute illness. Has been deconditioned from this. Has decreased mobility significantly with acute issues. Patient has not had complete return to normal bowel function. Has had some minor urinary issues in the past. Denies bleeding. No severe nausea or vomiting. Currently no fevers. Discussed with patient multifactorial nature of urinary issues, retention, and incomplete bladder emptying. Discussed concerns and issues. Discussed decreased mobility and trouble voiding. Discussed issues related to decond itioning and weakened state. Discussed possibility that patient had more moderate to severe issues and with the acute illness and deconditioning these issues became more prevalent and obvious. Discussed bowel function and possible issues related to decrease in function and its relation to other pelvic organs and systems. Discussed different medications, will use during hospitalization and their effect on ability to empty. Patient had been scoped approximately a year ago and found to have extremely large prostate with obstruction Allergies Allergy/AdvReac Type Severity Reaction Status Date / Time No Known Allergies Allergy Mild Verified 08/26/20 20:22 Home Medications Medication Instructions Recorded Confirmed Type atorvastatin 80 mg tablet 80 mg PO QPM #90 tab 09/02/19 08/26/20 Rx finasteride 5 mg tablet 5 mg PO DAILY #30 tab 11/01/19 08/26/20 Rx cromolyn 4 % eye drops 2 drops OP QID PRN #10 ml 11/09/19 08/26/20 Rx cetirizine 10 mg tablet 10 mg PO DAILY PRN #30 tab 11/17/19 08/26/20 Rx tamsulosin 0.4 mg capsule 0.4 mg PO HS 30 Days #90 cap 12/16/19 08/26/20 Rx metoprolol succinate 50 mg 50 mg PO DAILY #90 tab 02/23/20 08/26/20 Rx tablet,extended release 24 hr allopurinol 300 mg tablet 300 mg PO DAILY #30 tab 03/07/20 08/26/20 Rx sildenafil 50 mg tablet 50 mg PO DAILY PRN #10 tab 07/17/20 08/26/20 Rx hydrocodone 5 mg-acetaminophen 325 2 tab PO DAILY PRN #15 tab 08/08/20 08/26/20 Rx mg tablet tramadol 50 mg tablet 50 mg PO TID PRN #60 tab 08/10/20 08/26/20 Rx methylprednisolone 4 mg PO DIRECTED 08/26/20 08/26/20 History Patient History Medical History BPH w urinary obs/LUTS Gout attack Olecranon bursitis, right elbow Surgical History No pertinent past surgical history Family History Mother Coronary heart disease Hypertension Father Coronary heart disease Brother Migraine headache Denies family history of Ovarian cancer Prostate cancer Myocardial infarction Breast cancer Colonic polyp Social History Smoking Status: Never smoker Second Hand Exposure: No; Hx Alcohol Use: No Hx Substance Use: No Preferred Language: Peruvian Communication Ability: Effective Visual Impairment: No Limitations Hearing Ability: Normal 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 Patient is well nourished and well kept. HEENT: Normocephalic Atraumatic. Inspection normal. Cranial Nerves 2-12 Grossly intact. Nares are clear. Neck is supple. Normal inspection of face. Normal inspection of neck. Neurologic: No deficits on inspection. Baseline for motor function and sensory. Psychologic: Normal affect. Respiratory: Nonlabored. No use of accessory muscles. No tachypnea or dyspnea. Cardiovascular: No tachycardia Skin: [place] and Dry. No rashes or visible lesions. Extremities: Moving without issues. No motor deficits on inspection Lymphatics: No edema Abdomen: Soft Non-distended. No acites. No rebound or guarding. : Brennan in place draining clear yellow urine Results & Data ([facility]) Vital Signs (Past 12 Hours) Vital Signs Temp Pulse Resp BP Pulse Ox 08/27/20 07:49 36.8 C 68 18 180/76 H 96 08/27/20 02:25 36.7 C 89 161/87 H 98 08/27/20 00:15 78 171/88 H PG Care Time/CCT Total # of Minutes Spent Total Time Spent with Patient: Total time spent is greater than 50% in coordination of care (as documented) at patient's floor/unit and/or counseling patient: Coding Level of Care Code 14146 Inpt Consult Level 5 Diagnoses Acute urinary retention R33.8 Hydroureteronephrosis N13.30 Rhabdomyolysis M62.82 Rhabdomyolysis type: non-traumatic Abnormal LFTs R94.5 (1) Rhabdomyolysis Rhabdomyolysis type: non-traumatic Qualified Code(s): M62.82 - Rhabdomyolysis
[2020-08-27 14:20] LABS: Hepatitis B Surface Antigen Neg (Neg)
--- NOTE | 2020-08-27 14:45 | Hospitalist Progress Note ---
Date of Service August 27, 2020 Assessment & Plan (1) Rhabdomyolysis: Elevated CK 12,578. Hydrate with IV fluids. Recheck laboratories serially May be because of abnormal LFTs as well GI found that pt was on some sort of abx recently for possible sinusitis and feels that combination of abx and high dose statin was the reason for pt's current acute state Pt states he started to get bruising on his arms this fall after a series of bug bites. He did not see any bugs specifically, but would see bites left behind. 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 He is outside often. Lyme, rickettsial testing pending (2) Elevated troponin I level: Troponin 0 0.048 upon admission, now WNL on repeat The patient will be admitted to telemetry for serial cardiac enzymes, serial EKG's, cardiac rhythm monitoring and a 2-D echocardiogram with Dopplers. More likely element of supply demand mismatch, type II [place] (3) Hypertension: Continue metoprolol succinate 50 mg p.o. daily (4) BPH w urinary obs/LUTS: BPH with LUTS/hydroureteronephrosis bilaterally/bladder distention- Brennan catheter placed in ED. Follow urine culture and sensitivity Empiric ceftriaxone IV Increase tamsulosin from 0.4 to 0.8 mg p.o. at bedtime Consult urology (5) Hydroureteronephrosis: See above (6) Abnormal LFTs: CT abdomen and pelvis shows hepatomegaly, and hepatic steatosis. Hold atorvastatin and allopurinol for now GI found that pt was on some sort of abx recently for possible sinusitis and feels that combination of abx and high dose statin was the reason for pt's current acute state Liver US, hepatitis panel pending (7) Bladder distention: See above (8) Hepatic steatosis: See above (9) Gout: Hold allopurinol for now. (10) Hyperlipidemia: Pt states his high dose statin is related to ineffective cholesterol lowering with lower dose Advised that dose should likely be lowered and if lipids increase after trial, he may need to be on a higher dose lobsterman This would need held if he needed abx or other hepatotoxic meds in the future though Admission and Anticipated Discharge Date Admission Date: August 26, 2020 Subjective Pt states he feels his energy is improving. He still feels weak, but able to walk a bit better. His appetite is better. Tolerating PO without issue. Pt denies fever, SOB, chest pain, abd pain, n/v/c/d, LE pain or swelling. Pt states he started to get bruising on his arms this fall after a series of bug bites. He did not see any bugs specifically, but would see bites left behind. 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 He is outside often. Review of Systems Review of Systems: Pertinent positives and negatives reviewed in HPI--all others negative Physical Exam Constitutional: WD/WN, vitals as above Eyes: normal visual sotomayor by confrontation and + anicteric sclerae Neck: normal visual inspection and trachea midline Respiratory: normal respiratory effort, lungs clear to auscultation Cardiovascular: Rate/Rhythm: regular rate and regular rhythm Gastrointestinal (Abdomen): Inspection/Auscultation: abdomen not distended Percussion/Palpation: abdomen soft; abdomen nontender Musculoskeletal: Head/Neck/Chest: normocephalic and head atraumatic negative for edema, peripheral pulses intact Skin: no rashes, warm and dry + ecchymosis Neurologic: awake; not confused Speech / Cognition: normal speech Psychiatric: A+Ox3, euthymic affect Results & Data Results & Data ([facility]) Vital Signs (Past 12 Hours) Vital Signs Temp Pulse Resp BP Pulse Ox 08/27/20 07:49 36.8 C 68 18 180/76 H 96 PG Care Time/CCT Total # of Minutes Spent Total Time Spent with Patient: Total time spent is greater than 50% in co ordination of care (as documented) at patient's floor/unit and/or counseling patient: Coding Level of Care Code 64611 Subseq Hosp Care Lvl 3 Diagnoses Rhabdomyolysis M6. Rhabdomyolysis type: non-traumatic Elevated troponin I level R77.8 Hypertension I10 BPH w urinary obs/LUTS N40.1; N13.8 Hydroureteronephrosis N13.30 Abnormal LFTs R94.5 Bladder distention N32.89 Hepatic steatosis K76.0 Gout M10.9 Hyperlipidemia E78.5 (1) Rhabdomyolysis Rhabdomyolysis type: non-traumatic Qualified Code(s): M62.82 - Rhabdomyolysis
[2020-08-27 15:12] LABS: Hepatitis C IgG 13Yrs+Old_Rflx Neg (Neg)
--- NOTE | 2020-08-27 16:12 | Ultrasound Report ---
ULTRASOUND RIGHT UPPER QUADRANT ABDOMEN CLINICAL HISTORY: Right flank pain. COMPARISON STUDY: Abdominal CT dated 08/26/2020. TECHNIQUE: Real-time, grayscale, and color flow sonography of the right upper quadrant of the abdomen was performed. Images are reviewed in the transverse and longitudinal planes. FINDINGS: Liver: The liver is enlarged and demonstrates heterogeneously increased echotexture consistent with h epatic steatosis. Note that this degrades acoustic penetration of the liver. Fatty sparing is seen ad jacent to gallbladder fossa. There is no intrahepatic biliary ductal dilatation. The main portal vein is patent. Gallbladder: The gallbladder is normal in appearance. No gallstones are identified. There is no gallb ladder wall thickening or pericholecystic fluid. A sonographic Degroot's sign is reportedly absent. Th e common bile duct measures up to 0.3 cm in diameter. Pancreas: Visualized portions of the pancreatic head and body are normal in appearance. The splenic v ein is patent. Right kidney: Survey images of the right kidney demonstrate normal size and echotexture. There is mil d to moderate right-sided hydronephrosis. Ascites: None. IMPRESSION: 1. Hepatomegaly and hepatic steatosis. 2. Mild to moderate right-sided hydronephrosis. 3. No gallstones are identified. ACT 112: Negative or not required by law. Electronically signed by: Jamie Rojas M.D. 08/27/2020 4:10 PM
[2020-08-27 16:22] LABS: Lyme Ab IgG w/WB Rflx Negative (Negative); Lyme Ab IgM w/WB Rflx Negative (Negative)
[2020-08-27] MEDS: ZOLPIDEM TARTRATE 5 MG TAB PO PRN (20:46)
--- NOTE | 2020-08-27 20:47 | Ultrasound Report ---
DOPPLER ULTRASOUND OF THE HEPATIC AND PORTAL VASCULATURE CLINICAL HISTORY: Elevated hepatic transaminases. COMPARISON STUDY: Abdominal CT dated 08/26/2020 and abdominal ultrasound dated 08/27/2020. FINDINGS: Real-time, grayscale, and color Doppler sonography of the hepatic and portal vasculature is performed. The splenic vein is patent. The hepatic artery is patent with normal Doppler arterial wav eforms. Velocities within the hepatic artery measure up to 70 cm/s. The main portal vein is patent wi th normal direction of flow. Velocities within the main portal vein measure up to 20 cm/s. The intrah epatic portal branches are patent. The hepatic veins are patent. There is blunting of the normal hepa tic venous waveforms. The IVC is patent. The liver is enlarged and steatotic. IMPRESSION: 1. The hepatic and portal vessels are patent with normal direction of flow. 2. There is blunting of the normal hepatic venous waveforms. 3. The liver is enlarged and steatotic. Electronically signed by: Jamie Rojas M.D. 08/27/2020 8:45 PM
[2020-08-27] MEDS: TAMSULOSIN HCL 0.4 MG CAP PO SCH (20:48)
[2020-08-27] MEDS ORDERED: TAMSULOSIN HCL 0.4 MG CAP PO SCH (21:00)
[2020-08-28 06:54] LABS: Eosinophils # (auto) 0.02 K/uL (0-0.5); Eosinophils % (auto) 0.3 %; Hematocrit (blood only) 28.5 % (42-52); Hemoglobin 9.4 g/dL (14.0-18.0); Immature Granulocytes # (auto) 0.08 K/uL (0.00-0.02); Immature Granulocytes % (auto) 1.3 %; Lymphocytes # (auto) 1.29 K/uL (1.2-3.4); Lymphocytes % (auto) 21.2 %; Mean Corpuscular Hemoglobin 31.6 pg (25-34); Mean Platelet Volume 11.2 fL (7.4-10.4); Monocytes # (auto) 0.28 K/uL (0.11-0.59); Monocytes % (auto) 4.6 %; Neutrophils # (auto) 4.41 K/uL (1.4-6.5); Neutrophils % (auto) 72.6 %; Nucleated RBC # (auto) 0.02 K/uL (0-0); Nucleated RBC % (auto) 0.4 %; Platelet Count 157 K/uL (130-400); RDW Coefficient of Variation 17.7 % (11.5-14.5); RDW Standard Deviation 61.7 fL (36.4-46.3); Red Blood Count 2.97 M/uL (4.7-6.1); White Blood Count 6.08 K/uL (4.8-10.8)
[2020-08-28] MEDS: HEPARIN SOD 5,000 UNIT/0.5 ML VIAL SQ SCH ×2 (07:25→21:24)
[2020-08-28] MEDS: NSS + 20MEQ KCL 20 MEQ/1,000 ML BAG IV SCH ×2 (07:25→16:30)
[2020-08-28] MEDS: METOPROLOL SUCC 50MG EXT REL TAB PO SCH (07:26)
[2020-08-28] MEDS: FINASTERIDE 5 MG TAB PO SCH (07:26)
[2020-08-28 07:39] LABS: Albumin Level 1.9 gm/dl (3.4-5.0); BUN Creatinine Ratio 18.7 (10-20); Calcium 7.6 mg/dl (8.5-10.1); Creatinine Clr Calc Pharmacy 67.9 ml/min; Est GFR (African American) 78.1; Est GFR (Non-African American) 67.4; Potassium 3.4 mmol/L (3.5-5.1)
[2020-08-28 07:41] LABS: Bilirubin,Total 5.5 mg/dl (0.2-1); Magnesium 1.8 mg/dl (1.8-2.4)
[2020-08-28 07:43] LABS: Albumin Globulin Ratio 0.7 (0.9-2); Globulin 2.8 gm/dl (2.5-4.0); Total Protein 4.7 gm/dl (6.4-8.2)
[2020-08-28 08:24] LABS: Troponin I 0.053 ng/ml (0-0.045)
--- NOTE | 2020-08-28 08:37 | Gastroenterology Progress Note ---
Date of Service August 28, 2020 Assessment & Plan (1) Abnormal LFTs: This is a 65 y/o male with PMhx HLD, BPH, admitted with RACHID, elevated LFTs and rhabdomyolysis. GI consulted for abnormal LFTs. He was recently on ABX for sinus infxn. Pattern of LFT elevation seems c/w DILI, in the setting of recent ABX use (Augmentin per records, but pt thought maybe erythromycin), with underlying NAFLD and high-dose atorvastatin, vs viral hepatitis. Renal function improved, Na and K slightly low. - INR remains WNL and pt without encephalopathy; trend daily INR - LFTs minimally improved, would continue to trend LFTs - EBV, HSV, acute hepatitis panel pending - US ABD with no jhony dil or biliary stone - Please monitor and correct electrolytes - Repeat LFTs as an outpt in 1-2 weeks. If no improvement, would consider liver biopsy (2) Anemia: HGB 12->9 since last year of unclear etiology - Recommend outpt EGD/colonoscopy to eval for occult GI bleeding (3) Hepatic steatosis: Should have outpt GI f/u; can obtain Fibroscan as an outpt to eval for fibrosis/cirrhosis Admission and Anticipated Discharge Date Admission Date: August 26, 2020 Supervising Physician Co-Signing Physician Notes Late entry: Patient was seen and examined on 08/28 with Montrell Mi PA-C whose note reflects our findings and plan. LFTs continuing to slowly improve. Continue with IVF hydration. Monitor LFTs and CPK. Anticipate discharge later this week. Esther need a definitive plan regarding the bladder/prostate issues and plan for catheter prior ot discharge. Patient concerned about this. Subjective Pt feeling well today; states he slept well; tolerated breakfast. Having some soreness over his right abd where he had US ABD yesterday. In general no specific complaints, no n/v, hematemesis, melena, hematochezia, fever, chills, CP, SOB, jaundice. Review of Systems Review of Systems: All systems reviewed & are unremarkable except as noted in HPI & below Physical Exam Constitutional: WD/WN, vitals as above Eyes: + anicteric sclerae Respiratory: normal respiratory effort; no respiratory distress Cardiovascular: Rate/Rhythm: regular rate and regular rhythm Gastrointestinal (Abdomen): Inspection/Auscultation: abdomen normal to inspection and normal bowel sounds; abdomen not distended Percussion/Palpation: abdomen soft; abdomen nontender Skin: no rashes, warm and dry Psychiatric: A+Ox3, euthymic affect Results & Data ([facility]) Vital Signs (Past 12 Hours) Vital Signs Temp Pulse Pulse Resp BP BP Pulse Ox 08/28/20 08:00 82 08/28/20 07:00 37.0 C 88 19 149/80 H 95 08/28/20 04:34 37 C 84 16 133/79 95 08/28/20 03:31 36.9 C 81 18 131/75 96 08/27/20 23:48 36.4 C L 82 16 159/81 H 97 Laboratory Results 08/28/20 08/28/20 08/28/20 Range/Units 09:04 09:04 08:57 WBC (4.8-10.8) K/uL RBC (4.7-6.1) M/uL Hgb (14.0-18.0) g/dL Hct (42-52) % MCV (80-100) fL MCH (25-34) pg MCHC (32-36) g/dL RDW Std Deviation (36.4-46.3) fL RDW Coeff of Cody (11.5-14.5) % Plt Count (130-400) K/uL MPV (7.4-10.4) fL Immature Gran % (Auto) % Neut % (Auto) % Lymph % (Auto) % [place] % (Auto) % Eos % (Auto) % Baso % (Auto) % Neut # (Auto) (1.4-6.5) K/uL Lymph # (Auto) (1.2-3.4) K/uL [place] # (Auto) (0.11-0.59) K/uL Eos # (Auto) (0-0.5) K/uL Baso # (Auto) (0-0.2) K/uL Immature Gran # (Auto) (0.00-0.02) K/uL Absolute Nucleated RBC (0-0) K/uL Nucleated RBC % (auto) % PT 11.7 (9.0-12.0) Seconds INR 1.1 (0.9-1.1) Sodium (136-145) mmol/L Potassium (3.5-5.1) mmol/L Chloride (98-107) mmol/L Carbon Dioxide (21-32) mmol/L Anion Gap (3-11) BUN (7-18) mg/dl Creatinine (0.6-1.4) mg/dl Est Cr Clr Drug Dosing ml/min Est GFR ( Amer) Est GFR (Non-Af Amer) BUN/Creatinine Ratio (10-20) Glucose (70-99) mg/dl Calcium (8.5-10.1) mg/dl Magnesium (1.8-2.4) mg/dl Total Bilirubin (0.2-1) mg/dl AST (15-37) U/L ALT (12-78) U/L Alkaline Phosphatase (45-117) U/L Total Creatine Kinase (39-308) U/L Troponin I (0-0.045) ng/ml Total Protein (6.4-8.2) gm/dl Albumin (3.4-5.0) gm/dl Globulin (2.5-4.0) gm/dl Albumin/Globulin Ratio (0.9-2) Anti-Mitochondrial Ab Anaplasma Smear See Comment A. phagocytophilum DNA Pending Lyme Disease IgG Ab (Negative) Lyme Disease IgM Ab (Negative) EBV Capsid Ag IgG Ab EBV Capsid Ag IgM Ab EBV EA Restrict+Diffuse EBV Nuclear Antigen Ab EBV Antibody Interp Hep Bs Antigen (Neg) Hepatitis C Antibody (Neg) HSV I IgM TORCH HSV II IgM TORCH Q Fever Phase I IgG Ab Q Fever Phase I IgM Ab Q Fever Phase II IgG Ab Q Fever Phase II IgM Ab Rickettsia IgG Ab Rickettsia IgM Ab Typhus Fever IgG Ab Typhus Fever IgM Ab 08/28/20 08/28/20 08/28/20 Range/Units 05:58 05:58 05:58 WBC 6.08 (4.8-10.8) K/uL RBC 2.97 L (4.7-6.1) M/uL Hgb 9.4 L (14.0-18.0) g/dL Hct 28.5 L (42-52) % MCV 96.0 (80-100) fL MCH 31.6 (25-34) pg MCHC 33.0 (32-36) g/dL RDW Std Deviation 61.7 H (36.4-46.3) fL RDW Coeff of Cody 17.7 H (11.5-14.5) % Plt Count 157 (130-400) K/uL MPV 11.2 H (7.4-10.4) fL Immature Gran % (Auto) 1.3 % Neut % (Auto) 72.6 % Lymph % (Auto) 21.2 % [place] % (Auto) 4.6 % Eos % (Auto) 0.3 % Baso % (Auto) 0.0 % Neut # (Auto) 4.41 (1.4-6.5) K/uL Lymph # (Auto) 1.29 (1.2-3.4) K/uL [place] # (Auto) 0.28 (0.11-0.59) K/uL Eos # (Auto) 0.02 (0-0.5) K/uL Baso # (Auto) 0.00 (0-0.2) K/uL Immature Gran # (Auto) 0.08 H (0.00-0.02) K/uL Absolute Nucleated RBC 0.02 H (0-0) K/uL Nucleated RBC % (auto) 0.4 % PT (9.0-12.0) Seconds INR (0.9-1.1) Sodium 134 L (136-145) mmol/L Potassium 3.4 L (3.5-5.1) mmol/L Chloride 101 (98-107) mmol/L Carbon Dioxide 23 (21-32) mmol/L Anion Gap 10.0 (3-11) BUN 22 H (7-18) mg/dl Creatinine 1.15 (0.6-1.4) mg/dl Est Cr Clr Drug Dosing 67.9 ml/min Est GFR ( Amer) 78.1 Est GFR (Non-Af Amer) 67.4 BUN/Creatinine Ratio 18.7 (10-20) Glucose 149 H (70-99) mg/dl Calcium 7.6 L (8.5-10.1) mg/dl Magnesium 1.8 (1.8-2.4) mg/dl Total Bilirubin 5.5 H (0.2-1) mg/dl AST 1131 H (15-37) U/L ALT 452 H (12-78) U/L Alkaline Phosphatase 655 H (45-117) U/L Total Creatine Kinase 6246 H (39-308) U/L Troponin I 0.053 H* (0-0.045) ng/ml Total Protein 4.7 L (6.4-8.2) gm/dl Albumin 1.9 L (3.4-5.0) gm/dl Globulin 2.8 (2.5-4.0) gm/dl Albumin/Globulin Ratio 0.7 L (0.9-2) Anti-Mitochondrial Ab Pending Anaplasma Smear A. phagocytophilum DNA Lyme Disease IgG Ab (Negative) Lyme Disease IgM Ab (Negative) EBV Capsid Ag IgG Ab Pending EBV Capsid Ag IgM Ab Pending EBV EA Restrict+Diffuse Pending EBV Nuclear Antigen Ab Pending EBV Antibody Interp Pending Hep Bs Antigen (Neg) Hepatitis C Antibody (Neg) HSV I IgM TORCH Pending HSV II IgM TORCH Pending Q Fever Phase I IgG Ab Q Fever Phase I IgM Ab Q Fever Phase II IgG Ab Q Fever Phase II IgM Ab Rickettsia IgG Ab Rickettsia IgM Ab Typhus Fever IgG Ab Typhus Fever IgM Ab 08/27/20 08/27/20 08/27/20 Range/Units 20:41 15:05 15:05 WBC (4.8-10.8) K/uL RBC (4.7-6.1) M/uL Hgb (14.0-18.0) g/dL Hct (42-52) % MCV (80-100) fL MCH (25-34) pg MCHC (32-36) g/dL RDW Std Deviation (36.4-46.3) fL RDW Coeff of [place] (11.5-14.5) % Plt Count (130-400) K/uL MPV (7.4-10.4) fL Immature Gran % (Auto) % Neut % (Auto) % Lymph % (Auto) % [place] % (Auto) % Eos % (Auto) % Baso % (Auto) % Neut # (Auto) (1.4-6.5) K/uL Lymph # (Auto) (1.2-3.4) K/uL [place] # (Auto) (0.11-0.59) K/uL Eos # (Auto) (0-0.5) K/uL Baso # (Auto) (0-0.2) K/uL Immature Gran # (Auto) (0.00-0.02) K/uL Absolute Nucleated RBC (0-0) K/uL Nucleated RBC % (auto) % PT (9.0-12.0) Seconds INR (0.9-1.1) Sodium (136-145) mmol/L Potassium (3.5-5.1) mmol/L Chloride (98-107) mmol/L Carbon Dioxide (21-32) mmol/L Anion Gap (3-11) BUN (7-18) mg/dl Creatinine (0.6-1.4) mg/dl Est Cr Clr Drug Dosing ml/min Est GFR ( Amer) Est GFR (Non-Af Amer) BUN/Creatinine Ratio (10-20) Glucose (70-99) mg/dl Calcium (8.5-10.1) mg/dl Magnesium (1.8-2.4) mg/dl Total Bilirubin (0.2-1) mg/dl AST (15-37) U/L ALT (12-78) U/L Alkaline Phosphatase (45-117) U/L Total Creatine Kinase (39-308) U/L Troponin I 0.043 (0-0.045) ng/ml Total Protein (6.4-8.2) gm/dl Albumin (3.4-5.0) gm/dl Globulin (2.5-4.0) gm/dl Albumin/Globulin Ratio (0.9-2) Anti-Mitochondrial Ab Anaplasma Smear A. phagocytophilum DNA Lyme Disease IgG Ab Negative (Negative) Lyme Disease IgM Ab Negative (Negative) EBV Capsid Ag IgG Ab EBV Capsid Ag IgM Ab EBV EA Restrict+Diffuse EBV Nuclear Antigen Ab EBV Antibody Interp Hep Bs Antigen (Neg) Hepatitis C Antibody (Neg) HSV I IgM TORCH HSV II IgM TORCH Q Fever Phase I IgG Ab Pending Q Fever Phase I IgM Ab Pending Q Fever Phase II IgG Ab Pending Q Fever Phase II IgM Ab Pending [place]etts[place] IgG Ab Pending [place]etts[place] IgM Ab Pending Typhus Fever IgG Ab Pending Typhus Fever IgM Ab Pending 08/27/20 08/27/20 Range/Units 12:52 07:41 WBC (4.8-10.8) K/uL RBC (4.7-6.1) M/uL Hgb (14.0-18.0) g/dL Hct (42-52) % MCV (80-100) fL MCH (25-34) pg MCHC (32-36) g/dL RDW Std Deviation (36.4-46.3) fL RDW Coeff of Cody (11.5-14.5) % Plt Count (130-400) K/uL MPV (7.4-10.4) fL Immature Gran % (Auto) % Neut % (Auto) % Lymph % (Auto) % [place] % (Auto) % Eos % (Auto) % Baso % (Auto) % Neut # (Auto) (1.4-6.5) K/uL Lymph # (Auto) (1.2-3.4) K/uL [place] # (Auto) (0.11-0.59) K/uL Eos # (Auto) (0-0.5) K/uL Baso # (Auto) (0-0.2) K/uL Immature Gran # (Auto) (0.00-0.02) K/uL Absolute Nucleated RBC (0-0) K/uL Nucleated RBC % (auto) % PT (9.0-12.0) Seconds INR (0.9-1.1) Sodium (136-145) mmol/L Potassium (3.5-5.1) mmol/L Chloride (98-107) mmol/L Carbon Dioxide (21-32) mmol/L Anion Gap (3-11) BUN (7-18) mg/dl Creatinine (0.6-1.4) mg/dl Est Cr Clr Drug Dosing ml/min Est GFR ( Amer) Est GFR (Non-Af Amer) BUN/Creatinine Ratio (10-20) Glucose (70-99) mg/dl Calcium (8.5-10.1) mg/dl Magnesium (1.8-2.4) mg/dl Total Bilirubin (0.2-1) mg/dl AST (15-37) U/L ALT (12-78) U/L Alkaline Phosphatase (45-117) U/L Total Creatine Kinase (39-308) U/L Troponin I 0.038 (0-0.045) ng/ml Total Protein (6.4-8.2) gm/dl Albumin (3.4-5.0) gm/dl Globulin (2.5-4.0) gm/dl Albumin/Globulin Ratio (0.9-2) Anti-Mitochondrial Ab Anaplasma Smear A. phagocytophilum DNA Lyme Disease IgG Ab (Negative) Lyme Disease IgM Ab (Negative) EBV Capsid Ag IgG Ab EBV Capsid Ag IgM Ab EBV EA Restrict+Diffuse EBV Nuclear Antigen Ab EBV Antibody Interp Hep Bs Antigen Neg (Neg) Hepatitis C Antibody Neg (Neg) HSV I IgM TORCH HSV II IgM TORCH Q Fever Phase I IgG Ab Q Fever Phase I IgM Ab Q Fever Phase II IgG Ab Q Fever Phase II IgM Ab Rickettsia IgG Ab Rickettsia IgM Ab Typhus Fever IgG Ab Typhus Fever IgM Ab Diagnostic Findings US abd: Hepatomegaly and hepatic steatosis, no gallstones, mild-mod r-sided hydronephrosis Hepatic doppler: Patent hepatic and portal veins, enlarged and steatotic liver
[2020-08-28] MEDS ORDERED: POTASSIUM CHLORIDE 10 MEQ TABCR PO ONE (09:15)
[2020-08-28 10:06] LABS: INR 1.1 (0.9-1.1); Prothrombin Time 11.7 Seconds (9.0-12.0)
--- NOTE | 2020-08-28 11:30 | Electrocardiogram Report ---
Test Reason : Blood Pressure : / mmHG Vent. Rate : 102 BPM Atrial Rate : 102 BPM P-R Int : 138 ms QRS Dur : 096 ms QT Int : 336 ms P-R-T Axes : 020 -04 016 degrees QTc Int : 437 ms Sinus tachycardia Minimal voltage criteria for LVH, may be normal variant possible Inferior infarct , age undetermined Abnormal ECG When compared with ECG of 26-AUG-2020 19:32, No significant change was found Confirmed by Kiran Bo ([id number] on 08/28/2020 11:30:31 AM Referred By: REFERRED SELF Confirmed By:Yury Bo
--- NOTE | 2020-08-28 12:10 | Hospitalist Progress Note ---
Date of Service August 28, 2020 Assessment & Plan (1) Rhabdomyolysis: Elevated CK 12,578 upon admission which is now improved to 6000. Again likely related to statin use in the setting of antibiotic use causing drug- induced liver injury Continue to hydrate with IV fluids. Follow CPK Follow renal function, electrolytes (2) Abnormal LFTs: Suspected DILI in setting of recent abx use (possibly Augmentin) along with statin Anaplasmosis smear is negative, Anaplasma DNA PCR is pending Covid-19 is negative Hepatitis B and C are negative Labs improving somewhat today CT abdomen and pelvis shows hepatomegaly, and hepatic steatosis. Liver US with fatty liver, neg for PVT, gallbladder normal -continue to hold atorvastatin and allopurinol for now -f/u pending tick-borne illnesses and Hep A, anti AMA ab, EBV, HSV -appreciate GI consultation -Follow LFTs, PT/INR in the morning -GI recommends if no improvement over the next 1 to 2 weeks and LFTs, consider liver biopsy (3) Elevated troponin I level: Troponin 0 0.048 upon admission, then was WNL on repeat then mildly elevated again this morning at 0.05 He denies any chest pain. He has no cardiac history at all and reports that prior to 2 weeks ago, he could climb to the top of [place] and he could drag a deer out of the roberts without any chest pain or shortness of breath ECGs here with normal sinus rhythm and sinus tachycardia with minimal voltage criteria for LVH and age undetermined possible inferior infarct This is likely myocardial demand ischemia Echocardiogram is pending (4) Hypertension: BPs are controlled Continue metoprolol succinate 50 mg p.o. daily (5) BPH w urinary obs/LUTS: BPH with LUTS/hydroureteronephrosis bilaterally/bladder distention-this seems to be an ongoing problem over the last year Brennan catheter placed in ED. No evidence of UTI on urinalysis Appreciate urology consultation-Increase tamsulosin from 0.4 to 0.8 mg p.o. at bedtime, continue Brennan catheter -Continue finasteride Maintain Brennan catheter for at least 10-14 days and follow-up in the urology office to discuss further options for extremely large prostate with obstruction (6) Hydroureteronephrosis: See above (7) Bladder distention: See above (8) Hepatic steatosis: Needs outpatient GI follow-up GI recommends obtaining FibroScan as an outpatient to evaluate for fibrosis/cirrhosis (9) Gout: No acute issues Hold allopurinol for now (10) Hyperlipidemia: Pt states his high dose statin is related to ineffective cholesterol lower ing with lower dose Holding for now due to drug-induced liver injury and rhabdomyolysis (11) Hypokalemia: Mildly low today at 3.4 Replace with oral potassium chloride and follow BMP in the morning (12) Anemia: Hemoglobin is low at 9.4 and has trended down from 12 in 01/2020 Normocytic Could be anemia of chronic kidney disease Check iron studies, B12, folate in the morning (13) Rib pain: He reports pain at the bottoms of the rib cage anteriorly bilaterally after having abdominal ultrasound yesterday Also with rhabdomyolysis may be contributing Apply lidocaine patch Tramadol as needed (14) DVT prophylaxis: Heparin SQ Disposition-continued stay PT/OT consults to be placed as he is complaining of weakness in the legs likely from the rhabdomyolysis Admission and Anticipated Discharge Date Admission Date: August 26, 2020 Subjective Pt feels well, has some bilateral rib pain since the abd US yesterday, denies CP or SOB. No abd pain, no nausea, is moving bowels regularly, making urine. Eating well. Tele with NSR-ST 80s-100s Review of Systems Review of Systems: All systems reviewed & are unremarkable except as noted in HPI & below Physical Exam Constitutional: WD/WN, vitals as above Eyes: + scleral abnormality (icterus) Neck: trachea midline, no thyromegaly Respiratory: normal respiratory effort, lungs clear to auscultation Cardiovascular: RRR, no murmur, no edema Chest (Breasts): Chest: normal inspection of chest Gastrointestinal (Abdomen): normal bowel sounds, soft, nontender, no hepatosplenomegaly Musculoskeletal: Extremities: extremities normal to inspection; no cyanosis and no clubbing Skin: no rashes, warm and dry Neurologic: moves all extremities and awake; no focal motor deficits Psychiatric: A+Ox3, euthymic affect Genitourinary: no penis abnormality (Brennan in place, draining clear orange urine) Lymphatic: no lymphedema Results & Data Results & Data ([facility]) Vital Signs (Past 12 Hours) Vital Signs Temp Pulse Pulse Resp BP Pulse Ox 08/28/20 10:53 36.9 C 96 H 19 128/79 99 08/28/20 08:00 82 08/28/20 07:00 37.0 C 88 19 149/80 H 95 08/28/20 04:34 37 C 84 16 133/79 95 08/28/20 03:31 36.9 C 81 18 131/75 96 Laboratory Results 08/28/20 08/28/20 08/28/20 Range/Units 09:04 09:04 08:57 WBC (4.8-10.8) K/uL RBC (4.7-6.1) M/uL Hgb (14.0-18.0) g/dL Hct (42-52) % MCV (80-100) fL MCH (25-34) pg MCHC (32-36) g/dL RDW Std Deviation (36.4-46.3) fL RDW Coeff of Cody (11.5-14.5) % Plt Count (130-400) K/uL MPV (7.4-10.4) fL Immature Gran % (Auto) % Neut % (Auto) % Lymph % (Auto) % Candler % (Auto) % Eos % (Auto) % Baso % (Auto) % Neut # (Auto) (1.4-6.5) K/uL Lymph # (Auto) (1.2-3.4) K/uL Candler # (Auto) (0.11-0.59) K/uL Eos # (Auto) (0-0.5) K/uL Baso # (Auto) (0-0.2) K/uL Immature Gran # (Auto) (0.00-0.02) K/uL Absolute Nucleated RBC (0-0) K/uL Nucleated RBC % (auto) % PT 11.7 (9.0-12.0) Seconds INR 1.1 (0.9-1.1) Sodium (136-145) mmol/L Potassium (3.5-5.1) mmol/L Chloride (98-107) mmol/L Carbon Dioxide (21-32) mmol/L Anion Gap (3-11) BUN (7-18) mg/dl Creatinine (0.6-1.4) mg/dl Est Cr Clr Drug Dosing ml/min Est GFR ( Amer) Est GFR (Non-Af Amer) BUN/Creatinine Ratio (10-20) Glucose (70-99) mg/dl Calcium (8.5-10.1) mg/dl Magnesium (1.8-2.4) mg/dl Total Bilirubin (0.2-1) mg/dl AST (15-37) U/L ALT (12-78) U/L Alkaline Phosphatase (45-117) U/L Total Creatine Kinase (39-308) U/L Troponin I (0-0.045) ng/ml Total Protein (6.4-8.2) gm/dl Albumin (3.4-5.0) gm/dl Globulin (2.5-4.0) gm/dl Albumin/Globulin Ratio (0.9-2) Anti-Mitochondrial Ab Anaplasma Smear See Comment A. phagocytophilum DNA Pending Lyme Disease IgG Ab (Negative) Lyme Disease IgM Ab (Negative) EBV Capsid Ag IgG Ab EBV Capsid Ag IgM Ab EBV EA Restrict+Diffuse EBV Nuclear Antigen Ab EBV Antibody Interp Hep Bs Antigen (Neg) Hepatitis C Antibody (Neg) HSV I IgM TORCH HSV II IgM TORCH Q Fever Phase I IgG Ab Q Fever Phase I IgM Ab Q Fever Phase II IgG Ab Q Fever Phase II IgM Ab Rickettsia IgG Ab Rickettsia IgM Ab Typhus Fever IgG Ab Typhus Fever IgM Ab 08/28/20 08/28/20 08/28/20 Range/Units 05:58 05:58 05:58 WBC 6.08 (4.8-10.8) K/uL RBC 2.97 L (4.7-6.1) M/uL Hgb 9.4 L (14.0-18.0) g/dL Hct 28.5 L (42-52) % MCV 96.0 (80-100) fL MCH 31.6 (25-34) pg MCHC 33.0 (32-36) g/dL RDW Std Deviation 61.7 H (36.4-46.3) fL RDW Coeff of Cody 17.7 H (11.5-14.5) % Plt Count 157 (130-400) K/uL MPV 11.2 H (7.4-10.4) fL Immature Gran % (Auto) 1.3 % Neut % (Auto) 72.6 % Lymph % (Auto) 21.2 % Candler % (Auto) 4.6 % Eos % (Auto) 0.3 % Baso % (Auto) 0.0 % Neut # (Auto) 4.41 (1.4-6.5) K/uL Lymph # (Auto) 1.29 (1.2-3.4) K/uL Candler # (Auto) 0.28 (0.11-0.59) K/uL Eos # (Auto) 0.02 (0-0.5) K/uL Baso # (Auto) 0.00 (0-0.2) K/uL Immature Gran # (Auto) 0.08 H (0.00-0.02) K/uL Absolute Nucleated RBC 0.02 H (0-0) K/uL Nucleated RBC % (auto) 0.4 % PT (9.0-12.0) Seconds INR (0.9-1.1) Sodium 134 L (136-145) mmol/L Potassium 3.4 L (3.5-5.1) mmol/L Chloride 101 (98-107) mmol/L Carbon Dioxide 23 (21-32) mmol/L Anion Gap 10.0 (3-11) BUN 22 H (7-18) mg/dl Creatinine 1.15 (0.6-1.4) mg/dl Est Cr Clr Drug Dosing 67.9 ml/min Est GFR ( Amer) 78.1 Est GFR (Non-Af Amer) 67.4 BUN/Creatinine Ratio 18.7 (10-20) Glucose 149 H (70-99) mg/dl Calcium 7.6 L (8.5-10.1) mg/dl Magnesium 1.8 (1.8-2.4) mg/dl Total Bilirubin 5.5 H (0.2-1) mg/dl AST 1131 H (15-37) U/L ALT 452 H (12-78) U/L Alkaline Phosphatase 655 H (45-117) U/L Total Creatine Kinase 6246 H (39-308) U/L Troponin I 0.053 H* (0-0.045) ng/ml Total Protein 4.7 L (6.4-8.2) gm/dl Albumin 1.9 L (3.4-5.0) gm/dl Globulin 2.8 (2.5-4.0) gm/dl Albumin/Globulin Ratio 0.7 L (0.9-2) Anti-Mitochondrial Ab Pending Anaplasma Smear A. phagocytophilum DNA Lyme Disease IgG Ab (Negative) Lyme Disease IgM Ab (Negative) EBV Capsid Ag IgG Ab Pending EBV Capsid Ag IgM Ab Pending EBV EA Restrict+Diffuse Pending EBV Nuclear Antigen Ab Pending EBV Antibody Interp Pending Hep Bs Antigen (Neg) Hepatitis C Antibody (Neg) HSV I IgM TORCH Pending HSV II IgM TORCH Pending Q Fever Phase I IgG Ab Q Fever Phase I IgM Ab Q Fever Phase II IgG Ab Q Fever Phase II IgM Ab Rickettsia IgG Ab Rickettsia IgM Ab Typhus Fever IgG Ab Typhus Fever IgM Ab 08/27/20 08/27/20 08/27/20 Range/Units 20:41 15:05 15:05 WBC (4.8-10.8) K/uL RBC (4.7-6.1) M/uL Hgb (14.0-18.0) g/dL Hct (42-52) % MCV (80-100) fL MCH (25-34) pg MCHC (32-36) g/dL RDW Std Deviation (36.4-46.3) fL RDW Coeff of Cody (11.5-14.5) % Plt Count (130-400) K/uL MPV (7.4-10.4) fL Immature Gran % (Auto) % Neut % (Auto) % Lymph % (Auto) % Cand[place] % (Auto) % Eos % (Auto) % Baso % (Auto) % Neut # (Auto) (1.4-6.5) K/uL Lymph # (Auto) (1.2-3.4) K/uL Candler # (Auto) (0.11-0.59) K/uL Eos # (Auto) (0-0.5) K/uL Baso # (Auto) (0-0.2) K/uL Immature Gran # (Auto) (0.00-0.02) K/uL Absolute Nucleated RBC (0-0) K/uL Nucleated RBC % (auto) % PT (9.0-12.0) Seconds INR (0.9-1.1) Sodium (136-145) mmol/L Potassium (3.5-5.1) mmol/L Chloride (98-107) mmol/L Carbon Dioxide (21-32) mmol/L Anion Gap (3-11) BUN (7-18) mg/dl Creatinine (0.6-1.4) mg/dl Est Cr Clr Drug Dosing ml/min Est GFR ( Amer) Est GFR (Non-Af Amer) BUN/Creatinine Ratio (10-20) Glucose (70-99) mg/dl Calcium (8.5-10.1) mg/dl Magnesium (1.8-2.4) mg/dl Total Bilirubin (0.2-1) mg/dl AST (15-37) U/L ALT (12-78) U/L Alkaline Phosphatase (45-117) U/L Total Creatine Kinase (39-308) U/L Troponin I 0.043 (0-0.045) ng/ml Total Protein (6.4-8.2) gm/dl Albumin (3.4-5.0) gm/dl Globulin (2.5-4.0) gm/dl Albumin/Globulin Ratio (0.9-2) Anti-Mitochondrial Ab Anaplasma Smear A. phagocytophilum DNA Lyme Disease IgG Ab Negative (Negative) Lyme Disease IgM Ab Negative (Negative) EBV Capsid Ag IgG Ab EBV Capsid Ag IgM Ab EBV EA Restrict+Diffuse EBV Nuclear Antigen Ab EBV Antibody Interp Hep Bs Antigen (Neg) Hepatitis C Antibody (Neg) HSV I IgM TORCH HSV II IgM TORCH Q Fever Phase I IgG Ab Pending Q Fever Phase I IgM Ab Pending Q Fever Phase II IgG Ab Pending Q Fever Phase II IgM Ab Pending Rickettsia IgG Ab Pending Rickettsia IgM Ab Pending Typhus Fever IgG Ab Pending Typhus Fever IgM Ab Pending 08/27/20 08/27/20 Range/Units 12:52 07:41 WBC (4.8-10.8) K/uL RBC (4.7-6.1) M/uL Hgb (14.0-18.0) g/dL Hct (42-52) % MCV (80-100) fL MCH (25-34) pg MCHC (32-36) g/dL RDW Std Deviation (36.4-46.3) fL RDW Coeff of Cody (11.5-14.5) % Plt Count (130-400) K/uL MPV (7.4-10.4) fL Immature Gran % (Auto) % Neut % (Auto) % Lymph % (Auto) % Cand[place] % (Auto) % Eos % (Auto) % Baso % (Auto) % Neut # (Auto) (1.4-6.5) K/uL Lymph # (Auto) (1.2-3.4) K/uL Candler # (Auto) (0.11-0.59) K/uL Eos # (Auto) (0-0.5) K/uL Baso # (Auto) (0-0.2) K/uL Immature Gran # (Auto) (0.00-0.02) K/uL Absolute Nucleated RBC (0-0) K/uL Nucleated RBC % (auto) % PT (9.0-12.0) Seconds INR (0.9-1.1) Sodium (136-145) mmol/L Potassium (3.5-5.1) mmol/L Chloride (98-107) mmol/L Carbon Dioxide (21-32) mmol/L Anion Gap (3-11) BUN (7-18) mg/dl Creatinine (0.6-1.4) mg/dl Est Cr Clr Drug Dosing ml/min Est GFR ( Amer) Est GFR (Non-Af Amer) BUN/Creatinine Ratio (10-20) Glucose (70-99) mg/dl Calcium (8.5-10.1) mg/dl Magnesium (1.8-2.4) mg/dl Total Bilirubin (0.2-1) mg/dl AST (15-37) U/L ALT (12-78) U/L Alkaline Phosphatase (45-117) U/L Total Creatine Kinase (39-308) U/L Troponin I 0.038 (0-0.045) ng/ml Total Protein (6.4-8.2) gm/dl Albumin (3.4-5.0) gm/dl Globulin (2.5-4.0) gm/dl Albumin/Globulin Ratio (0.9-2) Anti-Mitochondrial Ab Anaplasma Smear A. phagocytophilum DNA Lyme Disease IgG Ab (Negative) Lyme Disease IgM Ab (Negative) EBV Capsid Ag IgG Ab EBV Capsid Ag IgM Ab EBV EA Restrict+Diffuse EBV Nuclear Antigen Ab EBV Antibody Interp Hep Bs Antigen Neg (Neg) Hepatitis C Antibody Neg (Neg) HSV I IgM TORCH HSV II IgM TORCH Q Fever Phase I IgG Ab Q Fever Phase I IgM Ab Q Fever Phase II IgG Ab Q Fever Phase II IgM Ab Rickettsia IgG Ab Rickettsia IgM Ab Typhus Fever IgG Ab Typhus Fever IgM Ab PG Care Time/CCT Total # of Minutes Spent Total Time Spent with Patient: Total time spent is greater than 50% in coordination of care (as documented) at patient's floor/unit and/or counseling patient: Coding Level of Care Code 11376 Subseq Hosp Care Lvl 3 Diagnoses Rhabdomyolysis M62.82 Rhabdomyolysis type: non-traumatic Abnormal LFTs R94.5 Elevated troponin I level R77.8 Hypertension I10 BPH w urinary obs/LUTS N40.1; N13.8 Hydroureteronephrosis N13.30 Bladder distention N32.89 Hepatic steatosis K76.0 Gout M10.9 Hyperlipidemia E78.5 Hypokalemia E87.6 Anemia D64.9 Rib pain R07.81 DVT prophylaxis Z29.9 (1) Rhabdomyolysis Rhabdomyolysis type: non-traumatic Qualified Code(s): M62.82 - Rhabdomyolysis
[2020-08-28] MEDS: LIDOCAINE 5% 1 PATCH TD SCH (12:21)
[2020-08-28] MEDS: traMADol HCL 50 MG TABLET PO PRN ×2 (14:15→21:22)
[2020-08-28] MEDS: TAMSULOSIN HCL 0.4 MG CAP PO SCH (21:23)
[2020-08-28] MEDS: ZOLPIDEM TARTRATE 5 MG TAB PO PRN (21:23)
[2020-08-28] MEDS: MELATONIN 3 MG TAB PO PRN (21:23)
[2020-08-29] MEDS: NSS + 20MEQ KCL 20 MEQ/1,000 ML BAG IV SCH ×3 (01:57→23:09)
[2020-08-29 06:48] LABS: Basophils # (auto) 0.01 K/uL (0-0.2); Basophils % (auto) 0.1 %; Eosinophils # (auto) 0.05 K/uL (0-0.5); Eosinophils % (auto) 0.7 %; Hemoglobin 9.2 g/dL (14.0-18.0); Immature Granulocytes # (auto) 0.13 K/uL (0.00-0.02); Immature Granulocytes % (auto) 1.8 %; Lymphocytes # (auto) 1.47 K/uL (1.2-3.4); Lymphocytes % (auto) 20.5 %; Mean Corpuscular Hemoglobin 31.6 pg (25-34); Mean Corpuscular Hgb Conc 32.9 g/dL (32-36); Mean Corpuscular Volume 96.2 fL (80-100); Mean Platelet Volume 11.1 fL (7.4-10.4); Monocytes % (auto) 4.2 %; Neutrophils % (auto) 72.7 %; Platelet Count 155 K/uL (130-400); RDW Coefficient of Variation 17.7 % (11.5-14.5); Red Blood Count 2.91 M/uL (4.7-6.1); White Blood Count 7.16 K/uL (4.8-10.8)
[2020-08-29 07:03] LABS: INR 1.1 (0.9-1.1); Prothrombin Time 11.4 Seconds (9.0-12.0)
[2020-08-29] MEDS: LIDOCAINE 5% 1 PATCH TD SCH (07:52)
[2020-08-29] MEDS: METOPROLOL SUCC 50MG EXT REL TAB PO SCH (07:52)
[2020-08-29] MEDS: FINASTERIDE 5 MG TAB PO SCH (07:52)
[2020-08-29] MEDS: HEPARIN SOD 5,000 UNIT/0.5 ML VIAL SQ SCH ×2 (07:52→21:35)
[2020-08-29 07:55] LABS: Bilirubin Direct 3.8 mg/dl (0-0.2)
[2020-08-29 07:57] LABS: Folate (Folic Acid) 18.9 ng/ml (>5.38)
[2020-08-29 08:06] LABS: Albumin Level 1.8 gm/dl (3.4-5.0); Bilirubin,Total 4.7 mg/dl (0.2-1); Calcium 8.4 mg/dl (8.5-10.1); Creatinine Clr Calc Pharmacy 77.3 ml/min; Est GFR (African American) 91.3; Est GFR (Non-African American) 78.8; Ferritin 2207.2 ng/ml (8-388); Phosphorus 1.3 mg/dl (2.5-4.9); Potassium 3.6 mmol/L (3.5-5.1); Total Protein 4.8 gm/dl (6.4-8.2)
[2020-08-29] MEDS ORDERED: POTASSIUM PHOS 3 MMOL/1 ML INFUSION IV STA (09:06)
[2020-08-29] MEDS: traMADol HCL 50 MG TABLET PO PRN ×2 (09:15→21:36)
[2020-08-29] MEDS ORDERED: POTASSIUM PHOSPHATE 15 MMOL in SODIUM CHLORIDE 0.9% 250 ML IV ONE (09:30)
--- NOTE | 2020-08-29 11:11 | Gastroenterology Progress Note ---
Date of Service August 29, 2020 Assessment & Plan (1) Abnormal LFTs: This is a 65 y/o male with PMhx HLD, BPH, admitted with RACHID, elevated LFTs and rhabdomyolysis. GI consulted for abnormal LFTs. He was recently on ABX for sinus infxn (Augmentin). Pattern of LFT elevation seems c/w DILI, in the setting of recent ABX use, along with underlying likely NAFLD and high-dose atorvastatin, vs viral hepatitis. Renal function improved. LFTs and CK continue slowly improve. He has BPH w/ LUTS and beach in place; plan for keeping in place for at least the next 10-14 days with f/u with urology. - INR remains WNL and pt without encephalopathy; trend daily INR, LFTs, CK - Continue supportive care with IV hydration - EBV, HSV studies pending - Hep C neg, Hep B pending - US ABD with no jhony dil or biliary stone - After discharge, would continue to monitor LFTs; repeat as an outpt in 1-2 weeks. If no improvement, would consider liver biopsy (2) Anemia: HGB 12->9 since last year of unclear etiology - Recommend outpt EGD/colonoscopy to eval for occult GI bleeding (3) Hepatic steatosis: Should have outpt GI f/u; can obtain Fibroscan as an outpt to eval for fibrosis/cirrhosis Admission and Anticipated Discharge Date Admission Date: August 26, 2020 Supervising Physician Co-Signing Physician Notes Late entry: Patient was seen and examined on 08/29 with Montrell Mi PA-C whose note reflects our findings and plan. LFTs continuing to slowly improve. Continue with IVF hydration. Monitor LFTs and CPK. Anticipate discharge later this week. US without evidence of biliary obstruction. Other studies pending. DILI related ot meds.. Subjective Patient seen and examined, chart reviewed. No acute events overnight. LFts continue slowly trend down. INR WNL. Pt denies specific complaints, no abd pain, n/v, fever, CP, SOB, melena, hematochezia. Tolerating his breakfast. Review of Systems Review of Systems: All systems reviewed & are unremarkable except as noted in HPI & below Physical Exam Constitutional: WD/WN, vitals as above Eyes: + anicteric sclerae Respiratory: normal respiratory effort; no respiratory distress Gastrointestinal (Abdomen): Inspection/Auscultation: abdomen not distended Percussion/Palpation: abdomen soft; abdomen nontender Skin: no rashes, warm and dry Psychiatric: A+Ox3, euthymic affect Results & Data ([facility]) Vital Signs (Past 12 Hours) Vital Signs Temp Pulse Resp BP BP Pulse Ox 08/29/20 11:08 36.8 C 95 H 20 128/79 98 08/29/20 07:10 36.9 C 93 H 16 135/87 96 08/29/20 04:55 36.7 C 90 18 147/83 H 97 08/28/20 23:27 36.9 C 87 18 145/81 H 94 Laboratory Results 08/29/20 08/29/20 08/29/20 Range/Units 06:27 06:27 06:27 WBC (4.8-10.8) K/uL RBC (4.7-6.1) M/uL Hgb (14.0-18.0) g/dL Hct (42-52) % MCV (80-100) fL MCH (25-34) pg MCHC (32-36) g/dL RDW Std Deviation (36.4-46.3) fL RDW Coeff of Cody (11.5-14.5) % Plt Count (130-400) K/uL MPV (7.4-10.4) fL Immature Gran % (Auto) % Neut % (Auto) % Lymph % (Auto) % [place] % (Auto) % Eos % (Auto) % Baso % (Auto) % Neut # (Auto) (1.4-6.5) K/uL Lymph # (Auto) (1.2-3.4) K/uL [place] # (Auto) (0.11-0.59) K/uL Eos # (Auto) (0-0.5) K/uL Baso # (Auto) (0-0.2) K/uL Immature Gran # (Auto) (0.00-0.02) K/uL PT 11.4 (9.0-12.0) Seconds INR 1.1 (0.9-1.1) Sodium 133 L (136-145) mmol/L Potassium 3.6 (3.5-5.1) mmol/L Chloride 101 (98-107) mmol/L Carbon Dioxide 22 (21-32) mmol/L Anion Gap 10.0 (3-11) BUN 19 H (7-18) mg/dl Creatinine 1.01 (0.6-1.4) mg/dl Est Cr Clr Drug Dosing 77.3 ml/min Est GFR ( Amer) 91.3 Est GFR (Non-Af Amer) 78.8 BUN/Creatinine Ratio 19.0 (10-20) Glucose 136 H (70-99) mg/dl Calcium 8.4 L (8.5-10.1) mg/dl Phosphorus 1.3 L* (2.5-4.9) mg/dl Iron 101 (35-175) mcg/dl TIBC 195 L (250-450) mcg/dl Transferrin 168 L (200-360) mg/dl Transferrin % Sat 52 H (20-50) % Ferritin 2207.2 H (8-388) ng/ml Total Bilirubin 4.7 H (0.2-1) mg/dl Direct Bilirubin 3.8 H (0-0.2) mg/dl AST 925 H (15-37) U/L ALT 437 H (12-78) U/L Alkaline Phosphatase 620 H (45-117) U/L Total Creatine Kinase 4322 H (39-308) U/L Troponin I (0-0.045) ng/ml Total Protein 4.8 L (6.4-8.2) gm/dl Albumin 1.8 L (3.4-5.0) gm/dl Vitamin B12 464 (193-986) pg/ml Folate 18.90 (>5.38) ng/ml Miscellaneous Test Miscellaneous Test 2 08/29/20 08/28/20 08/26/20 Range/Units 06:27 13:03 21:33 WBC 7.16 (4.8-10.8) K/uL RBC 2.91 L (4.7-6.1) M/uL Hgb 9.2 L (14.0-18.0) g/dL Hct 28.0 L (42-52) % MCV 96.2 (80-100) fL MCH 31.6 (25-34) pg MCHC 32.9 (32-36) g/dL RDW Std Deviation 62.0 H (36.4-46.3) fL RDW Coeff of Cody 17.7 H (11.5-14.5) % Plt Count 155 (130-400) K/uL MPV 11.1 H (7.4-10.4) fL Immature Gran % (Auto) 1.8 % Neut % (Auto) 72.7 % Lymph % (Auto) 20.5 % [place]ett % (Auto) 4.2 % Eos % (Auto) 0.7 % Baso % (Auto) 0.1 % Neut # (Auto) 5.20 (1.4-6.5) K/uL Lymph # (Auto) 1.47 (1.2-3.4) K/uL [place] # (Auto) 0.30 (0.11-0.59) K/uL Eos # (Auto) 0.05 (0-0.5) K/uL Baso # (Auto) 0.01 (0-0.2) K/uL Immature Gran # (Auto) 0.13 H (0.00-0.02) K/uL PT (9.0-12.0) Seconds INR (0.9-1.1) Sodium (136-145) mmol/L Potassium (3.5-5.1) mmol/L Chloride (98-107) mmol/L Carbon Dioxide (21-32) mmol/L Anion Gap (3-11) BUN (7-18) mg/dl Creatinine (0.6-1.4) mg/dl Est Cr Clr Drug Dosing ml/min Est GFR ( Amer) Est GFR (Non-Af Amer) BUN/Creatinine Ratio (10-20) Glucose (70-99) mg/dl Calcium (8.5-10.1) mg/dl Phosphorus (2.5-4.9) mg/dl Iron (35-175) mcg/dl TIBC (250-450) mcg/dl Transferrin (200-360) mg/dl Transferrin % Sat (20-50) % Ferritin (8-388) ng/ml Total Bilirubin (0.2-1) mg/dl Direct Bilirubin (0-0.2) mg/dl AST (15-37) U/L ALT (12-78) U/L Alkaline Phosphatase (45-117) U/L Total Creatine Kinase (39-308) U/L Troponin I 0.035 (0-0.045) ng/ml Total Protein (6.4-8.2) gm/dl Albumin (3.4-5.0) gm/dl Vitamin B12 (193-986) pg/ml Folate (>5.38) ng/ml Miscellaneous Test REPORT Miscellaneous Test 2 REPORT
--- NOTE | 2020-08-29 12:16 | Hospitalist Progress Note ---
Date of Service August 29, 2020 Assessment & Plan (1) Rhabdomyolysis: Elevated CK 12,578 upon admission which is now improved to 4322. Again likely related to statin use in the setting of antibiotic use causing drug- induced liver injury Continue to hydrate with IV fluids. Follow CPK Follow renal function, electrolytes-replace phos and K+ today (2) Abnormal LFTs: LFTs in a mixed hepatocellular/cholestatic picture Suspected DILI in setting of recent abx use (possibly Augmentin) along with statin Anaplasmosis smear is negative, Anaplasma DNA PCR is pending Covid-19 is negative Hepatitis B and C are negative Labs continue to improve each day, INR remains normal CT abdomen and pelvis shows hepatomegaly, and hepatic steatosis. Liver US with fatty liver, neg for PVT, gallbladder normal -continue to hold atorvastatin and allopurinol for now -f/u pending tick-borne illnesses and Hep A, anti AMA ab, EBV, HSV -appreciate GI consultation -Follow LFTs, PT/INR in the morning -GI recommends if no improvement over the next 1 to 2 weeks and LFTs, consider liver biopsy (3) Elevated troponin I level: Troponin 0 0.048 upon admission, then was WNL on repeat then mildly elevated again this morning at 0.05 He denies any chest pain. 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 daily (5) BPH w urinary obs/LUTS: BPH with LUTS/hydroureteronephrosis bilaterally/bladder distention-this seems to be an ongoing problem over the last year Brennan catheter placed in ED. No evidence of UTI on urinalysis Appreciate urology consultation-Increase tamsulosin from 0.4 to 0.8 mg p.o. at bedtime, continue Brennan catheter -Continue finasteride Maintain Brennan catheter for at least 10-14 days and follow-up in the urology office to discuss further options for extremely large prostate with obstruction (6) Hydroureteronephrosis: See above (7) Bladder distention: See above (8) Hepatic steatosis: Needs outpatient GI follow-up GI recommends obtaining FibroScan as an outpatient to evaluate for fibrosis/cirrhosis (9) Gout: No acute issues Hold allopurinol for now (10) Hyperlipidemia: Pt states his high dose statin is related to ineffective cholesterol lowering with lower dose Holding for now due to drug-induced liver injury and rhabdomyolysis (11) Hypokalemia: Mildly low but improving Replace with IV K-Phos today and follow BMP in the morning (12) Anemia: Hemoglobin is low at 9.4 and has trended down from 12 in 01/2020 Normocytic Could be anemia of chronic kidney disease normal iron studies, B12, folate---> anemia of chronic disease (13) Rib pain: He reports pain at the bottoms of the rib cage anteriorly bilaterally after having abdominal ultrasound -ongoing, lidocaine patch did not help Also with rhabdomyolysis may be contributing add oxycodone prn (14) Chronic neck pain: continue home tramadol and oxycodone ordered today prn severe pain- worsened pain by hospitalization (15) Hypophosphatemia: replace with IV K-Phos follow Phos in AM (16) DVT prophylaxis: Heparin SQ Disposition-continued stay--> if ECHO normal, can move to med-surg PT/OT consults appreciated Admission and Anticipated Discharge Date Admission Date: August 26, 2020 Subjective Pt feeling well except having some worsening of his chronic upper back pain since being here in the bed for so many days. He worked with PT/OT today and "I got a good workout." Now also with some righ tlower back pain that is new. No abd pain, no nausea, is moving his bowels-no blood. Denies CP or SOB Tele with NSR, PVCs, rates 80-90s Review of Systems Review of Systems: All systems reviewed & are unremarkable except as noted in HPI & below Physical Exam Constitutional: WD/WN, vitals as above Eyes: + scleral abnormality (icterus) Neck: trachea midline, no thyromegaly Respiratory: normal respiratory effort, lungs clear to auscultation Cardiovascular: Rate/Rhythm: regular rate and regular rhythm Heart Sounds: no murmur Extremities: + edema (1+ pitting edema bilat feet L>R) Chest (Breasts): Chest: normal inspection of chest Gastrointestinal (Abdomen): normal bowel sounds, soft, nontender, no hepatosplenomegaly Musculoskeletal: Extremities: extremities normal to inspection; no cyanosis and no clubbing +TTP over right lower back and upper back Skin: no rashes, warm and dry Neurologic: moves all extremities and awake; no focal motor deficits Psychiatric: A+Ox3, euthymic affect Results & Data Results & Data ([facility]) Vital Signs (Past 12 Hours) Vital Signs Temp Pulse Resp BP BP Pulse Ox 08/29/20 11:08 36.8 C 95 H 20 128/79 98 08/29/20 07:10 36.9 C 93 H 16 135/87 96 08/29/20 04:55 36.7 C 90 18 147/83 H 97 Laboratory Results 08/29/20 08/29/20 08/29/20 Range/Units 06:27 06:27 06:27 WBC (4.8-10.8) K/uL RBC (4.7-6.1) M/uL Hgb (14.0-18.0) g/dL Hct (42-52) % MCV (80-100) fL MCH (25-34) pg MCHC (32-36) g/dL RDW Std Deviation (36.4-46.3) fL RDW Coeff of Cody (11.5-14.5) % Plt Count (130-400) K/uL MPV (7.4-10.4) fL Immature Gran % (Auto) % Neut % (Auto) % Lymph % (Auto) % Bremer % (Auto) % Eos % (Auto) % Baso % (Auto) % Neut # (Auto) (1.4-6.5) K/uL Lymph # (Auto) (1.2-3.4) K/uL Bremer # (Auto) (0.11-0.59) K/uL Eos # (Auto) (0-0.5) K/uL Baso # (Auto) (0-0.2) K/uL Immature Gran # (Auto) (0.00-0.02) K/uL PT 11.4 (9.0-12.0) Seconds INR 1.1 (0.9-1.1) Sodium 133 L (136-145) mmol/L Potassium 3.6 (3.5-5.1) mmol/L Chloride 101 (98-107) mmol/L Carbon Dioxide 22 (21-32) mmol/L Anion Gap 10.0 (3-11) BUN 19 H (7-18) mg/dl Creatinine 1.01 (0.6-1.4) mg/dl Est Cr Clr Drug Dosing 77.3 ml/min Est GFR ( Amer) 91.3 Est GFR (Non-Af Amer) 78.8 BUN/Creatinine Ratio 19.0 (10-20) Glucose 136 H (70-99) mg/dl Calcium 8.4 L (8.5-10.1) mg/dl Phosphorus 1.3 L* (2.5-4.9) mg/dl Iron 101 (35-175) mcg/dl TIBC 195 L (250-450) mcg/dl Transferrin 168 L (200-360) mg/dl Transferrin % Sat 52 H (20-50) % Ferritin 2207.2 H (8-388) ng/ml Total Bilirubin 4.7 H (0.2-1) mg/dl Direct Bilirubin 3.8 H (0-0.2) mg/dl AST 925 H (15-37) U/L ALT 437 H (12-78) U/L Alkaline Phosphatase 620 H (45-117) U/L Total Creatine Kinase 4322 H (39-308) U/L Troponin I (0-0.045) ng/ml Total Protein 4.8 L (6.4-8.2) gm/dl Albumin 1.8 L (3.4-5.0) gm/dl Vitamin B12 464 (193-986) pg/ml Folate 18.90 (>5.38) ng/ml Miscellaneous Test Miscellaneous Test 2 08/29/20 08/28/20 08/26/20 Range/Units 06:27 13:03 21:33 WBC 7.16 (4.8-10.8) K/uL RBC 2.91 L (4.7-6.1) M/uL Hgb 9.2 L (14.0-18.0) g/dL Hct 28.0 L (42-52) % MCV 96.2 (80-100) fL MCH 31.6 (25-34) pg MCHC 32.9 (32-36) g/dL RDW Std Deviation 62.0 H (36.4-46.3) fL RDW Coeff of Cody 17.7 H (11.5-14.5) % Plt Count 155 (130-400) K/uL MPV 11.1 H (7.4-10.4) fL Immature Gran % (Auto) 1.8 % Neut % (Auto) 72.7 % Lymph % (Auto) 20.5 % Bremer % (Auto) 4.2 % Eos % (Auto) 0.7 % Baso % (Auto) 0.1 % Neut # (Auto) 5.20 (1.4-6.5) K/uL Lymph # (Auto) 1.47 (1.2-3.4) K/uL Bremer # (Auto) 0.30 (0.11-0.59) K/uL Eos # (Auto) 0.05 (0-0.5) K/uL Baso # (Auto) 0.01 (0-0.2) K/uL Immature Gran # (Auto) 0.13 H (0.00-0.02) K/uL PT (9.0-12.0) Seconds INR (0.9-1.1) Sodium (136-145) mmol/L Potassium (3.5-5.1) mmol/L Chloride (98-107) mmol/L Carbon Dioxide (21-32) mmol/L Anion Gap (3-11) BUN (7-18) mg/dl Creatinine (0.6-1.4) mg/dl Est Cr Clr Drug Dosing ml/min Est GFR ( Amer) Est GFR (Non-Af Amer) BUN/Creatinine Ratio (10-20) Glucose (70-99) mg/dl Calcium (8.5-10.1) mg/dl Phosphorus (2.5-4.9) mg/dl Iron (35-175) mcg/dl TIBC (250-450) mcg/dl Transferrin (200-360) mg/dl Transferrin % Sat (20-50) % Ferritin (8-388) ng/ml Total Bilirubin (0.2-1) mg/dl Direct Bilirubin (0-0.2) mg/dl AST (15-37) U/L ALT (12-78) U/L Alkaline Phosphatase (45-117) U/L Total Creatine Kinase (39-308) U/L Troponin I 0.035 (0-0.045) ng/ml Total Protein (6.4-8.2) gm/dl Albumin (3.4-5.0) gm/dl Vitamin B12 (193-986) pg/ml Folate (>5.38) ng/ml Miscellaneous Test REPORT Miscellaneous Test 2 REPORT PG Care Time/CCT Total # of Minutes Spent Total Time Spent with Patient: Total time spent is greater than 50% in coordination of care (as documented) at patient's floor/unit and/or counseling patient: Coding Level of Care Code 39722 Subseq Hosp Care Lvl 3 Diagnoses Rhabdomyolysis Rhabdomyolysis type: non-traumatic Abnormal LFTs R94.5 Elevated troponin I level R77.8 Hypertension I10 BPH w urinary obs/LUTS N40.1; N13.8 Hydroureteronephrosis N13.30 Bladder distention N32.89 Hepatic steatosis K76.0 Gout M10.9 Hyperlipidemia E78.5 Hypokalemia E87.6 Anemia D64.9 Rib pain R07.81 Chronic neck pain M54.2; G89.29 Hypophosphatemia E83.39 DVT prophylaxis Z29.9 (1) Rhabdomyolysis Rhabdomyolysis type: non-traumatic Qualified Code(s): M6.82 - Rhabdomyolysis
[2020-08-29] MEDS: oxyCODONE HCL IR 5 MG TAB (IMMEDIATE RELEASE) PO PRN ×2 (13:01→18:45)
[2020-08-29 14:57] LABS: Hepatitis A Antibody IgM NON-REACTIVE (NON-REACTIVE); Hepatitis B Core Antibody IgM NON-REACTIVE (NON-REACTIVE)
--- NOTE | 2020-08-29 16:17 | XCELERA ---
[id number]
[2020-08-29] MEDS: TAMSULOSIN HCL 0.4 MG CAP PO SCH (21:35)
[2020-08-29] MEDS: ZOLPIDEM TARTRATE 5 MG TAB PO PRN (21:36)
[2020-08-30] MEDS: oxyCODONE HCL IR 5 MG TAB (IMMEDIATE RELEASE) PO PRN ×4 (00:37→20:30)
[2020-08-30] MEDS: traMADol HCL 50 MG TABLET PO PRN ×3 (04:38→18:02)
[2020-08-30] MEDS: METOPROLOL SUCC 50MG EXT REL TAB PO SCH (07:25)
[2020-08-30] MEDS: FINASTERIDE 5 MG TAB PO SCH (07:25)
[2020-08-30] MEDS: HEPARIN SOD 5,000 UNIT/0.5 ML VIAL SQ SCH ×2 (07:26→20:30)
[2020-08-30 07:32] LABS: Basophils # (auto) 0.01 K/uL (0-0.2); Basophils % (auto) 0.1 %; Eosinophils # (auto) 0.05 K/uL (0-0.5); Eosinophils % (auto) 0.7 %; Hematocrit (blood only) 27.6 % (42-52); Hemoglobin 8.8 g/dL (14.0-18.0); Immature Granulocytes # (auto) 0.32 K/uL (0.00-0.02); Immature Granulocytes % (auto) 4.2 %; Lymphocytes # (auto) 1.51 K/uL (1.2-3.4); Lymphocytes % (auto) 20.1 %; Mean Corpuscular Hemoglobin 31.2 pg (25-34); Mean Corpuscular Hgb Conc 31.9 g/dL (32-36); Mean Corpuscular Volume 97.9 fL (80-100); Mean Platelet Volume 11.9 fL (7.4-10.4); Monocytes # (auto) 0.34 K/uL (0.11-0.59); Monocytes % (auto) 4.5 %; Neutrophils % (auto) 70.4 %; Nucleated RBC # (auto) 0.04 K/uL (0-0); Nucleated RBC % (auto) 0.6 %; Platelet Count 154 K/uL (130-400); RDW Coefficient of Variation 17.9 % (11.5-14.5); RDW Standard Deviation 62.8 fL (36.4-46.3); Red Blood Count 2.82 M/uL (4.7-6.1); White Blood Count 7.53 K/uL (4.8-10.8)
[2020-08-30 07:39] LABS: INR 1.1 (0.9-1.1); Prothrombin Time 11.2 Seconds (9.0-12.0)
[2020-08-30 08:28] LABS: Albumin Level 1.9 gm/dl (3.4-5.0); Bilirubin,Total 4.7 mg/dl (0.2-1); Calcium 8.7 mg/dl (8.5-10.1); Creatinine Clr Calc Pharmacy 83.9 ml/min; Est GFR (African American) 100.9; Est GFR (Non-African American) 87.1; Magnesium 1.4 mg/dl (1.8-2.4); Total Protein 5.3 gm/dl (6.4-8.2)
[2020-08-30 08:57] LABS: Bilirubin Direct 3.9 mg/dl (0-0.2)
[2020-08-30] MEDS: NSS + 20MEQ KCL 20 MEQ/1,000 ML BAG IV SCH ×2 (09:10→18:45)
--- NOTE | 2020-08-30 11:35 | Gastroenterology Progress Note ---
Date of Service August 30, 2020 Assessment & Plan (1) Abnormal LFTs: This is a 65 y/o male with PMhx HLD, BPH, admitted with RACHID, elevated LFTs and rhabdomyolysis. GI consulted for abnormal LFTs. He was recently on ABX for sinus infxn (Augmentin). Pattern of LFT elevation seems c/w DILI, in the setting of recent ABX use, along with underlying likely NAFLD and high-dose atorvastatin, vs viral hepatitis. - LFTs and CK continue slowly improve. He has BPH w/ LUTS and beach in place; plan for keeping in place for at least the next 10-14 days with f/u with urology. - INR remains WNL and pt without encephalopathy; monitor daily INR, LFTs, CK - Continue supportive care with IV hydration - EBV, HSV studies pending - Acut hep panel neg - US ABD with no jhony dil or biliary stone - After discharge, would continue to monitor LFTs; repeat as an outpt in 1-2 weeks. If no improvement, would consider liver biopsy (2) Anemia: HGB 12->9 since last year of unclear etiology - Recommend outpt EGD/colonoscopy to eval for occult GI bleeding (3) Hepatic steatosis: Should have outpt GI f/u; can obtain Fibroscan as an outpt to eval for fibrosis/cirrhosis Admission and Anticipated Discharge Date Admission Date: August 26, 2020 Admission and Anticipated Discharge Date Admission Date: August 26, 2020 Supervising Physician Co-Signing Physician Notes Late entry: Patient was seen and examined on 08/30 with Montrell Mi PA-C whose note reflects our findings and plan. LFTs continuing to slowly improve. Continue with IVF hydration. Monitor LFTs and CPK. Anticipate discharge later this week. US without evidence of biliary obstruction. Other studies pending. DILI related to meds.. Subjective Patient seen and examined, chart reviewed. Continues to feel well; having some back pain, chronic and thinks made worse by sitting in hospital bed. Doing PT and feeling better. LFTs and CPK slowly improving, INR remains normal. Serologies pending. Tolerating regular meals. Denies specific complaints including abd pain, n/v, melena, hematochezia, CP, SOB. Review of Systems Review of Systems: All systems reviewed & are unremarkable except as noted in HPI & below Physical Exam Constitutional: WD/WN, vitals as above Eyes: + anicteric sclerae Respiratory: normal respiratory effort, lungs clear to auscultation Cardiovascular: RRR, no murmur, no edema Gastrointestinal (Abdomen): normal bowel sounds, soft, nontender, no hepatosplenomegaly Skin: no rashes, warm and dry Psychiatric: A+Ox3, euthymic affect Results & Data ([facility]) Vital Signs (Past 12 Hours) Vital Signs Temp Pulse Resp BP BP Pulse Ox 08/30/20 11:25 36.9 C 100 H 20 118/74 100 08/30/20 07:34 36.9 C 97 H 20 125/76 96 08/30/20 04:37 36.9 C 99 H 20 121/76 96 Laboratory Results 08/30/20 08/30/20 08/30/20 Range/Units 06:17 06:17 06:17 WBC (4.8-10.8) K/uL RBC (4.7-6.1) M/uL Hgb (14.0-18.0) g/dL Hct (42-52) % MCV (80-100) fL MCH (25-34) pg MCHC (32-36) g/dL RDW Std Deviation (36.4-46.3) fL RDW Coeff of Cody (11.5-14.5) % Plt Count (130-400) K/uL MPV (7.4-10.4) fL Immature Gran % (Auto) % Neut % (Auto) % Lymph % (Auto) % [place]on % (Auto) % Eos % (Auto) % Baso % (Auto) % Neut # (Auto) (1.4-6.5) K/uL Lymph # (Auto) (1.2-3.4) K/uL Weston # (Auto) (0.11-0.59) K/uL Eos # (Auto) (0-0.5) K/uL Baso # (Auto) (0-0.2) K/uL Immature Gran # (Auto) (0.00-0.02) K/uL Absolute Nucleated RBC (0-0) K/uL Nucleated RBC % (auto) % PT 11.2 (9.0-12.0) Seconds INR 1.1 (0.9-1.1) Sodium 132 L (136-145) mmol/L Potassium 4.0 (3.5-5.1) mmol/L Chloride 100 (98-107) mmol/L Carbon Dioxide 22 (21-32) mmol/L Anion Gap 10.0 (3-11) BUN 19 H (7-18) mg/dl Creatinine 0.93 (0.6-1.4) mg/dl Est Cr Clr Drug Dosing 83.9 ml/min Est GFR ( Amer) 100.9 Est GFR (Non-Af Amer) 87.1 BUN/Creatinine Ratio 20.0 (10-20) Glucose 120 H (70-99) mg/dl Calcium 8.7 (8.5-10.1) mg/dl Phosphorus 2.0 L (2.5-4.9) mg/dl Magnesium 1.4 L (1.8-2.4) mg/dl Total Bilirubin 4.7 H (0.2-1) mg/dl Direct Bilirubin Cancelled 3.9 H (0-0.2) mg/dl AST 720 H (15-37) U/L ALT 443 H (12-78) U/L Alkaline Phosphatase 560 H (45-117) U/L Total Creatine Kinase 3344 H (39-308) U/L Total Protein 5.3 L (6.4-8.2) gm/dl Albumin 1.9 L (3.4-5.0) gm/dl Specimen Hemolysis Cancelled Hepatitis A IgM Ab (NON-REACTIVE) Hep B Core IgM Ab (NON-REACTIVE) 08/30/20 08/27/20 Range/Units 06:17 07:41 WBC 7.53 (4.8-10.8) K/uL RBC 2.82 L (4.7-6.1) M/uL Hgb 8.8 L (14.0-18.0) g/dL Hct 27.6 L (42-52) % MCV 97.9 (80-100) fL MCH 31.2 (25-34) pg MCHC 31.9 L (32-36) g/dL RDW Std Deviation 62.8 H (36.4-46.3) fL RDW Coeff of Cody 17.9 H (11.5-14.5) % Plt Count 154 (130-400) K/uL MPV 11.9 H (7.4-10.4) fL Immature Gran % (Auto) 4.2 % Neut % (Auto) 70.4 % Lymph % (Auto) 20.1 % Weston % (Auto) 4.5 % Eos % (Auto) 0.7 % Baso % (Auto) 0.1 % Neut # (Auto) 5.30 (1.4-6.5) K/uL Lymph # (Auto) 1.51 (1.2-3.4) K/uL Weston # (Auto) 0.34 (0.11-0.59) K/uL Eos # (Auto) 0.05 (0-0.5) K/uL Baso # (Auto) 0.01 (0-0.2) K/uL Immature Gran # (Auto) 0.32 H (0.00-0.02) K/uL Absolute Nucleated RBC 0.04 H (0-0) K/uL Nucleated RBC % (auto) 0.6 % PT (9.0-12.0) Seconds INR (0.9-1.1) Sodium (136-145) mmol/L Potassium (3.5-5.1) mmol/L Chloride (98-107) mmol/L Carbon Dioxide (21-32) mmol/L Anion Gap (3-11) BUN (7-18) mg/dl Creatinine (0.6-1.4) mg/dl Est Cr Clr Drug Dosing ml/min Est GFR ( Amer) Est GFR (Non-Af Amer) BUN/Creatinine Ratio (10-20) Glucose (70-99) mg/dl Calcium (8.5-10.1) mg/dl Phosphorus (2.5-4.9) mg/dl Magnesium (1.8-2.4) mg/dl Total Bilirubin (0.2-1) mg/dl Direct Bilirubin (0-0.2) mg/dl AST (15-37) U/L ALT (12-78) U/L Alkaline Phosphatase (45-117) U/L Total Creatine Kinase (39-308) U/L Total Protein (6.4-8.2) gm/dl Albumin (3.4-5.0) gm/dl Specimen Hemolysis Hepatitis A IgM Ab NON-REACTIVE (NON-REACTIVE) Hep B Core IgM Ab NON-REACTIVE (NON-REACTIVE)
[2020-08-30] MEDS ORDERED: SODIUM PHOSPHATE 3 MMOL/1 ML INFUSION IV STA (13:59)
[2020-08-30] MEDS ORDERED: SODIUM PHOSPHATE 15 MMOL in SODIUM CHLORIDE 0.9% 250 ML IV ONE (14:15)
[2020-08-30] MEDS: MAGNESIUM SULFATE / D5W 1 GM/100 ML BAG IV SCH ×2 (14:20→16:32)
--- NOTE | 2020-08-30 17:05 | Hospitalist Progress Note ---
Date of Service August 30, 2020 Assessment & Plan (1) Rhabdomyolysis: Elevated CK 12,578 upon admission which is now improved to 3000. Again likely related to statin use in the setting of antibiotic use causing drug- induced liver injury Continue to hydrate with IV fluids. Follow CPK Follow renal function, electrolytes-replace phos and Magnesium again today (2) Abnormal LFTs: LFTs in a mixed hepatocellular/cholestatic picture Suspected DILI in setting of recent abx use (possibly Augmentin) along with statin Anaplasmosis smear is negative, Anaplasma DNA PCR is pending Covid-19 is negative Hepatitis B and C are negative Labs continue to improve each day, INR remains normal CT abdomen and pelvis shows hepatomegaly, and hepatic steatosis. Liver US with fatty liver, neg for PVT, gallbladder normal -continue to hold atorvastatin and allopurinol for now -f/u pending tick-borne illnesses and Hep A, anti AMA ab, EBV, HSV -appreciate GI consultation -Follow LFTs, PT/INR in the morning -GI recommends if no improvement over the next 1 to 2 weeks and LFTs, consider liver biopsy (3) Elevated troponin I level: Troponin 0 0.048 upon admission, then was WNL on repeat then mildly elevated again this morning at 0.05 He denies any chest pain. He has no cardiac history at all and reports that prior to 2 weeks ago, he could climb to the top of [place] and he could drag a deer out of the [place] without any chest pain or shortness of breath ECGs here with normal sinus rhythm and sinus tachycardia with minimal voltage criteria for LVH and age undetermined possible inferior infarct This is likely myocardial demand ischemia Echocardiogram normal (4) Hypertension: BPs are controlled Continue metoprolol succinate 50 mg p.o. daily (5) BPH w urinary obs/LUTS: BPH with LUTS/hydroureteronephrosis bilaterally/bladder distention-this seems to be an ongoing problem over the last year Brennan catheter placed in ED. No evidence of UTI on urinalysis Appreciate urology consultation-Increase tamsulosin from 0.4 to 0.8 mg p.o. at bedtime, continue Brennan catheter -Continue finasteride Maintain Brennan catheter for at least 10-14 days and follow-up in the urology office to discuss further options for extremely large prostate with obstruction (6) Hydroureteronephrosis: See above (7) Bladder distention: See above (8) Hepatic steatosis: Needs outpatient GI follow-up GI recommends obtaining FibroScan as an outpatient to evaluate for fibrosis/cirrhosis (9) Gout: No acute issues Hold allopurinol for now (10) Hyperlipidemia: Pt states his high dose statin is related to ineffective cholesterol lowering with lower dose Holding for now due to drug-induced liver injury and rhabdomyolysis (11) Hypokalemia: now improved after replacement (12) Anemia: Hemoglobin is low at 8.8 and has trended down from 12 in 01/2020 Normocytic Could be anemia of chronic kidney disease normal iron studies, B12, folate---> anemia of chronic disease (13) Rib pain: He reports pain at the bottoms of the rib cage anteriorly bilaterally after having abdominal ultrasound -ongoing, lidocaine patch did not help Also with rhabdomyolysis may be contributing added oxycodone prn which helps somewhat add on Voltaren gel today is directly +TTP on exam (14) Chronic neck pain: continue home tramadol and oxycodone prn severe pain-worsened pain by hospitalization (15) Hypophosphatemia: replace with IV K-Phos again follow Phos in AM (16) Hypomagnesemia: Mag 1.4 replace with IV mag follow Mag level in AM (17) DVT prophylaxis: Heparin SQ Disposition-continued stay, ok to transfer to med/surg PT/OT consults appreciated Admission and Anticipated Discharge Date Admission Date: August 26, 2020 Subjective Pt still having pain in the ribs on his sides and right lower back. Is eating and drinking, no abd pains, no CP or SOB Tele with NSR, rates 80-90s Review of Systems Review of Systems: All systems reviewed & are unremarkable except as noted in HPI & below reports irritation of eyes from Demodex mites but improved from previous Physical Exam Constitutional: WD/WN, vitals as above Eyes: + eyelid abnormality (mild crusting of lids) and + scleral abnormality (icterus); no conjunctival abnormality Neck: trachea midline, no thyromegaly Respiratory: normal respiratory effort, lungs clear to auscultation Cardiovascular: RRR, no murmur, no edema Rate/Rhythm: regular rate and regular rhythm Heart Sounds: no murmur Extremities: + edema (trace pitting edema bilat feet L>R) Chest (Breasts): Chest: normal inspection of chest Gastrointestinal (Abdomen): normal bowel sounds, soft, nontender, no hepatosplenomegaly Musculoskeletal: Extremities: extremities normal to inspection; no cyanosis and no clubbing +TTP of right and left lateral ribs Skin: no rashes, warm and dry Neurologic: moves all extremities and awake; no focal motor deficits Psychiatric: A+Ox3, euthymic affect Lymphatic: no lymphedema Results & Data Results & Data ([facility]) Vital Signs (Past 12 Hours) Vital Signs Temp Pulse Resp BP BP Pulse Ox 08/30/20 15:34 36.8 C 70 20 112/68 95 08/30/20 11:25 36.9 C 100 H 20 118/74 100 08/30/20 07:34 36.9 C 97 H 20 125/76 96 Laboratory Results 08/30/20 08/30/20 08/30/20 Range/Units 06:17 06:17 06:17 WBC (4.8-10.8) K/uL RBC (4.7-6.1) M/uL Hgb (14.0-18.0) g/dL Hct (42-52) % MCV (80-100) fL MCH (25-34) pg MCHC (32-36) g/dL RDW Std Deviation (36.4-46.3) fL RDW Coeff of Cody (11.5-14.5) % Plt Count (130-400) K/uL MPV (7.4-10.4) fL Immature Gran % (Auto) % Neut % (Auto) % Lymph % (Auto) % [place] % (Auto) % Eos % (Auto) % Baso % (Auto) % Neut # (Auto) (1.4-6.5) K/uL Lymph # (Auto) (1.2-3.4) K/uL [place]y # (Auto) (0.11-0.59) K/uL Eos # (Auto) (0-0.5) K/uL Baso # (Auto) (0-0.2) K/uL Immature Gran # (Auto) (0.00-0.02) K/uL Absolute Nucleated RBC (0-0) K/uL Nucleated RBC % (auto) % PT 11.2 (9.0-12.0) Seconds INR 1.1 (0.9-1.1) Sodium 132 L (136-145) mmol/L Potassium 4.0 (3.5-5.1) mmol/L Chloride 100 (98-107) mmol/L Carbon Dioxide 22 (21-32) mmol/L Anion Gap 10.0 (3-11) BUN 19 H (7-18) mg/dl Creatinine 0.93 (0.6-1.4) mg/dl Est Cr Clr Drug Dosing 83.9 ml/min Est GFR ( Amer) 100.9 Est GFR (Non-Af Amer) 87.1 BUN/Creatinine Ratio 20.0 (10-20) Glucose 120 H (70-99) mg/dl Calcium 8.7 (8.5-10.1) mg/dl Phosphorus 2.0 L (2.5-4.9) mg/dl Magnesium 1.4 L (1.8-2.4) mg/dl Total Bilirubin 4.7 H (0.2-1) mg/dl Direct Bilirubin Cancelled 3.9 H (0-0.2) mg/dl AST 720 H (15-37) U/L ALT 443 H (12-78) U/L Alkaline Phosphatase 560 H (45-117) U/L Total Creatine Kinase 3344 H (39-308) U/L Total Protein 5.3 L (6.4-8.2) gm/dl Albumin 1.9 L (3.4-5.0) gm/dl Specimen Hemolysis Cancelled 08/30/20 Range/Units 06:17 WBC 7.53 (4.8-10.8) K/uL RBC 2.82 L (4.7-6.1) M/uL Hgb 8.8 L (14.0-18.0) g/dL Hct 27.6 L (42-52) % MCV 97.9 (80-100) fL MCH 31.2 (25-34) pg MCHC 31.9 L (32-36) g/dL RDW Std Deviation 62.8 H (36.4-46.3) fL RDW Coeff of Cody 17.9 H (11.5-14.5) % Plt Count 154 (130-400) K/uL MPV 11.9 H (7.4-10.4) fL Immature Gran % (Auto) 4.2 % Neut % (Auto) 70.4 % Lymph % (Auto) 20.1 % [place]y % (Auto) 4.5 % Eos % (Auto) 0.7 % Baso % (Auto) 0.1 % Neut # (Auto) 5.30 (1.4-6.5) K/uL Lymph # (Auto) 1.51 (1.2-3.4) K/uL [place]y # (Auto) 0.34 (0.11-0.59) K/uL Eos # (Auto) 0.05 (0-0.5) K/uL Baso # (Auto) 0.01 (0-0.2) K/uL Immature Gran # (Auto) 0.32 H (0.00-0.02) K/uL Absolute Nucleated RBC 0.04 H (0-0) K/uL Nucleated RBC % (auto) 0.6 % PT (9.0-12.0) Seconds INR (0.9-1.1) Sodium (136-145) mmol/L Potassium (3.5-5.1) mmol/L Chloride (98-107) mmol/L Carbon Dioxide (21-32) mmol/L Anion Gap (3-11) BUN (7-18) mg/dl Creatinine (0.6-1.4) mg/dl Est Cr Clr Drug Dosing ml/min Est GFR ( Amer) Est GFR (Non-Af Amer) BUN/Creatinine Ratio (10-20) Glucose (70-99) mg/dl Calcium (8.5-10.1) mg/dl Phosphorus (2.5-4.9) mg/dl Magnesium (1.8-2.4) mg/dl Total Bilirubin (0.2-1) mg/dl Direct Bilirubin (0-0.2) mg/dl AST (15-37) U/L ALT (12-78) U/L Alkaline Phosphatase (45-117) U/L Total Creatine Kinase (39-308) U/L Total Protein (6.4-8.2) gm/dl Albumin (3.4-5.0) gm/dl Specimen Hemolysis PG Care Time/CCT Total # of Minutes Spent Total Time Spent with Patient: Total time spent is greater than 50% in coordination of care (as documented) at patient's floor/unit and/or counseling patient: Coding Level of Care Code 32724 Subseq Hosp Care Lvl 3 Diagnoses Rhabdomyolysis M6.82 Rhabdomyolysis type: non-traumatic Abnormal LFTs R94.5 Elevated troponin I level R77.8 Hypertension I10 BPH w urinary obs/LUTS N40.1; N13.8 Hydroureteronephrosis N13.30 Bladder distention N32.89 Hepatic steatosis K76.0 Gout M10.9 Hyperlipidemia E78.5 Hypokalemia E87.6 Anemia D64.9 Rib pain R07.81 Chronic neck pain M54.2; G89.29 Hypophosphatemia E83.39 Hypomagnesemia E83.42 DVT prophylaxis Z29.9 (1) Rhabdomyolysis Rhabdomyolysis type: non-traumatic Qualified Code(s): M62.82 - Rhabdomyolysis
[2020-08-30] MEDS ORDERED: LANSOPRAZOLE 30 MG SOLTAB PO SCH (17:30)
[2020-08-30] MEDS: LANSOPRAZOLE 15 MG SOLTAB PO SCH (20:30)
[2020-08-30] MEDS: TAMSULOSIN HCL 0.4 MG CAP PO SCH (20:30)
[2020-08-30] MEDS: ZOLPIDEM TARTRATE 5 MG TAB PO PRN (23:15)
[2020-08-30] MEDS: DICLOFENAC SOD 1% GEL 100 GM TUBE EXT SCH (23:15)
[2020-08-30 23:47] LABS: Q Fever IgG, Phase I NEGATIVE; Q Fever Phase I IgM Antibody NEGATIVE; Q Fever Phase II IgG Antibody NEGATIVE; Q Fever Phase II IgM Antibody NEGATIVE; R. typhi IgG Ab NOT DETECTED; R. typhi IgM Ab NOT DETECTED; RMSF IgG Ab NOT DETECTED; RMSF IgM Ab NOT DETECTED
[2020-08-31] MEDS: traMADol HCL 50 MG TABLET PO PRN ×3 (00:27→16:09)
[2020-08-31] MEDS: oxyCODONE HCL IR 5 MG TAB (IMMEDIATE RELEASE) PO PRN ×3 (04:16→21:30)
[2020-08-31] MEDS: NSS + 20MEQ KCL 20 MEQ/1,000 ML BAG IV SCH ×2 (05:20→14:23)
[2020-08-31 06:29] LABS: Hematocrit (blood only) 27.2 % (42-52); Hemoglobin 8.6 g/dL (14.0-18.0); Mean Corpuscular Hemoglobin 30.9 pg (25-34); Mean Corpuscular Hgb Conc 31.6 g/dL (32-36); Mean Corpuscular Volume 97.8 fL (80-100); Mean Platelet Volume 11.2 fL (7.4-10.4); Platelet Count 172 K/uL (130-400); RDW Coefficient of Variation 17.7 % (11.5-14.5); RDW Standard Deviation 63.2 fL (36.4-46.3); Red Blood Count 2.78 M/uL (4.7-6.1); White Blood Count 6.88 K/uL (4.8-10.8)
[2020-08-31 06:43] LABS: Prothrombin Time 10.9 Seconds (9.0-12.0)
[2020-08-31 07:11] LABS: Albumin Level 1.9 gm/dl (3.4-5.0); BUN Creatinine Ratio 22.2 (10-20); Bilirubin Direct 3.5 mg/dl (0-0.2); Bilirubin,Total 4.3 mg/dl (0.2-1); Calcium 9.1 mg/dl (8.5-10.1); Creatinine Clr Calc Pharmacy 97.6 ml/min; Est GFR (African American) 110.2; Est GFR (Non-African American) 95.1; Magnesium 1.7 mg/dl (1.8-2.4); Phosphorus 2.7 mg/dl (2.5-4.9); Potassium 3.9 mmol/L (3.5-5.1); Total Protein 5.3 gm/dl (6.4-8.2)
[2020-08-31 07:14] LABS: Basophils # (auto) 0.02 K/uL (0-0.2); Basophils % (auto) 0.3 %; Eosinophils # (auto) 0.04 K/uL (0-0.5); Eosinophils % (auto) 0.6 %; Giant Platelets 1+; Immature Granulocytes # (auto) 0.37 K/uL (0.00-0.02); Immature Granulocytes % (auto) 5.4 %; Lymphocytes # (auto) 1.34 K/uL (1.2-3.4); Lymphocytes % (auto) 19.5 %; Monocytes # (auto) 0.41 K/uL (0.11-0.59); Neutrophils % (auto) 68.2 %; Ovalocytes 1+; Polychromasia 1+
[2020-08-31] MEDS: LANSOPRAZOLE 15 MG SOLTAB PO SCH (08:10)
[2020-08-31] MEDS: METOPROLOL SUCC 50MG EXT REL TAB PO SCH (08:11)
[2020-08-31] MEDS: FINASTERIDE 5 MG TAB PO SCH (08:11)
[2020-08-31] MEDS: HEPARIN SOD 5,000 UNIT/0.5 ML VIAL SQ SCH ×2 (08:12→21:26)
[2020-08-31] MEDS: DICLOFENAC SOD 1% GEL 100 GM TUBE EXT SCH ×4 (08:14→21:26)
--- NOTE | 2020-08-31 09:05 | Gastroenterology Progress Note ---
Date of Service August 31, 2020 Assessment & Plan (1) Abnormal LFTs: This is a 65 y/o male with PMHx HLD, BPH, admitted with RACHID, elevated LFTs and rhabdomyolysis. GI consulted for abnormal LFTs. Pattern of LFT elevation c/w DILI (was on Augmentin + high-dose atorvastatin) vs viral hepatitis. - LFTs and CK continue to slowly improve. He has BPH w/ LUTS and beach in place; plan for keeping in place for at least the next 10-14 days with f/u with urology. - INR remains WNL and pt without encephalopathy; monitor INR, LFTs, CPK - Continue supportive care with IV hydration - EBV, HSV studies pending - Acute hep panel neg - US ABD with no jhony dil or biliary stone - After discharge, would continue to monitor LFTs with PCP; repeat as an outpt in 1-2 weeks. If no improvement, would consider liver biopsy (2) Anemia: HGB 12->9 since last year of unclear etiology - Recommend outpt EGD/colonoscopy to eval for occult GI bleeding (3) Hepatic steatosis: Can obtain Fibroscan as an outpt to eval for fibrosis/cirrhosis Admission and Anticipated Discharge Date Admission Date: August 26, 2020 Admission and Anticipated Discharge Date Admission Date: August 26, 2020 Subjective Patient seen and examined, chart reviewed. Pt doing well with no complaints. Tolerating regular diet. LFTs, CPK slowly trending down; INR WNL. Denies abd pain, n/v, fever, CP, SOB. Review of Systems Review of Systems: All systems reviewed & are unremarkable except as noted in HPI & below Physical Exam Constitutional: WD/WN, vitals as above Eyes: + anicteric sclerae Respiratory: normal respiratory effort Gastrointestinal (Abdomen): Inspection/Auscultation: abdomen normal to inspection; abdomen not distended Percussion/Palpation: abdomen soft; abdomen nontender Psychiatric: A+Ox3, euthymic affect Results & Data ([facility]) Vital Signs (Past 12 Hours) Vital Signs Temp Pulse Pulse Resp BP Pulse Ox 08/31/20 08:00 36.9 C 105 H 18 122/79 96 08/30/20 23:17 36.5 C 93 H 20 122/79 98 Laboratory Results 08/31/20 08/31/20 08/31/20 Range/Units 05:54 05:54 05:54 WBC (4.8-10.8) K/uL RBC (4.7-6.1) M/uL Hgb (14.0-18.0) g/dL Hct (42-52) % MCV (80-100) fL MCH (25-34) pg MCHC (32-36) g/dL RDW Std Deviation (36.4-46.3) fL RDW Coeff of Cody (11.5-14.5) % Plt Count (130-400) K/uL MPV (7.4-10.4) fL Immature Gran % (Auto) % Neut % (Auto) % Lymph % (Auto) % [place] % (Auto) % Eos % (Auto) % Baso % (Auto) % Neut # (Auto) (1.4-6.5) K/uL Lymph # (Auto) (1.2-3.4) K/uL [place] # (Auto) (0.11-0.59) K/uL Eos # (Auto) (0-0.5) K/uL Baso # (Auto) (0-0.2) K/uL Immature Gran # (Auto) (0.00-0.02) K/uL Giant Platelets Polychromasia Ovalocytes PT 10.9 (9.0-12.0) Seconds INR 1.0 (0.9-1.1) Sodium 131 L (136-145) mmol/L Potassium 3.9 (3.5-5.1) mmol/L Chloride 100 (98-107) mmol/L Carbon Dioxide 25 (21-32) mmol/L Anion Gap 6.0 (3-11) BUN 18 (7-18) mg/dl Creatinine 0.80 (0.6-1.4) mg/dl Est Cr Clr Drug Dosing 97.6 ml/min Est GFR ( Amer) 110.2 Est GFR (Non-Af Amer) 95.1 BUN/Creatinine Ratio 22.2 H (10-20) Glucose 111 H (70-99) mg/dl Calcium 9.1 (8.5-10.1) mg/dl Phosphorus 2.7 (2.5-4.9) mg/dl Magnesium 1.7 L (1.8-2.4) mg/dl Total Bilirubin 4.3 H (0.2-1) mg/dl Direct Bilirubin 3.5 H (0-0.2) mg/dl AST 492 H (15-37) U/L ALT 411 H (12-78) U/L Alkaline Phosphatase 496 H (45-117) U/L Total Creatine Kinase 2366 H (39-308) U/L Total Protein 5.3 L (6.4-8.2) gm/dl Albumin 1.9 L (3.4-5.0) gm/dl Anti-Mitochondrial Ab (NEGATIVE) A. phagocytophilum DNA (Not Detected) EBV Capsid Ag IgG Ab U/mL EBV Capsid Ag IgM Ab U/mL EBV EA Restrict+Diffuse U/mL EBV Nuclear Antigen Ab U/mL EBV Antibody Interp HSV I IgM TORCH HSV II IgM TORCH Q Fever Phase I IgG Ab Q Fever Phase I IgM Ab Q Fever Phase II IgG Ab Q Fever Phase II IgM Ab [place] IgG Ab [place]ia IgM Ab Typhus Fever IgG Ab Typhus Fever IgM Ab 08/31/20 08/28/20 08/28/20 Range/Units 05:54 09:04 05:58 WBC 6.88 (4.8-10.8) K/uL RBC 2.78 L (4.7-6.1) M/uL Hgb 8.6 L (14.0-18.0) g/dL Hct 27.2 L (42-52) % MCV 97.8 (80-100) fL MCH 30.9 (25-34) pg MCHC 31.6 L (32-36) g/dL RDW Std Deviation 63.2 H (36.4-46.3) fL RDW Coeff of Cody 17.7 H (11.5-14.5) % Plt Count 172 (130-400) K/uL MPV 11.2 H (7.4-10.4) fL Immature Gran % (Auto) 5.4 % Neut % (Auto) 68.2 % Lymph % (Auto) 19.5 % [place] % (Auto) 6.0 % Eos % (Auto) 0.6 % Baso % (Auto) 0.3 % Neut # (Auto) 4.70 (1.4-6.5) K/uL Lymph # (Auto) 1.34 (1.2-3.4) K/uL [place] # (Auto) 0.41 (0.11-0.59) K/uL Eos # (Auto) 0.04 (0-0.5) K/uL Baso # (Auto) 0.02 (0-0.2) K/uL Immature Gran # (Auto) 0.37 H (0.00-0.02) K/uL Giant Platelets 1+ Polychromasia 1+ Ovalocytes 1+ PT (9.0-12.0) Seconds INR (0.9-1.1) Sodium (136-145) mmol/L Potassium (3.5-5.1) mmol/L Chloride (98-107) mmol/L Carbon Dioxide (21-32) mmol/L Anion Gap (3-11) BUN (7-18) mg/dl Creatinine (0.6-1.4) mg/dl Est Cr Clr Drug Dosing ml/min Est GFR ( Amer) Est GFR (Non-Af Amer) BUN/Creatinine Ratio (10-20) Glucose (70-99) mg/dl Calcium (8.5-10.1) mg/dl Phosphorus (2.5-4.9) mg/dl Magnesium (1.8-2.4) mg/dl Total Bilirubin (0.2-1) mg/dl Direct Bilirubin (0-0.2) mg/dl AST (15-37) U/L ALT (12-78) U/L Alkaline Phosphatase (45-117) U/L Total Creatine Kinase (39-308) U/L Total Protein (6.4-8.2) gm/dl Albumin (3.4-5.0) gm/dl Anti-Mitochondrial Ab NEGATIVE (NEGATIVE) A. phagocytophilum DNA Not Detected (Not Detected) EBV Capsid Ag IgG Ab 22.20 H U/mL EBV Capsid Ag IgM Ab <36.00 U/mL EBV EA Restrict+Diffuse <9.00 U/mL EBV Nuclear Antigen Ab 125.00 H U/mL EBV Antibody Interp SEE NOTE HSV I IgM TORCH TNP HSV II IgM TORCH DNR Q Fever Phase I IgG Ab Q Fever Phase I IgM Ab Q Fever Phase II IgG Ab Q Fever Phase II IgM Ab [place] IgG Ab [place] IgM Ab Typhus Fever IgG Ab Typhus Fever IgM Ab 08/27/20 Range/Units 15:05 WBC (4.8-10.8) K/uL RBC (4.7-6.1) M/uL Hgb (14.0-18.0) g/dL Hct (42-52) % MCV (80-100) fL MCH (25-34) pg MCHC (32-36) g/dL RDW Std Deviation (36.4-46.3) fL RDW Coeff of [place] (11.5-14.5) % Plt Count (130-400) K/uL MPV (7.4-10.4) fL Immature Gran % (Auto) % Neut % (Auto) % Lymph % (Auto) % [place] % (Auto) % Eos % (Auto) % Baso % (Auto) % Neut # (Auto) (1.4-6.5) K/uL Lymph # (Auto) (1.2-3.4) K/uL [place] # (Auto) (0.11-0.59) K/uL Eos # (Auto) (0-0.5) K/uL Baso # (Auto) (0-0.2) K/uL Immature Gran # (Auto) (0.00-0.02) K/uL Giant Platelets Polychromasia Ovalocytes PT (9.0-12.0) Seconds INR (0.9-1.1) Sodium (136-145) mmol/L Potassium (3.5-5.1) mmol/L Chloride (98-107) mmol/L Carbon Dioxide (21-32) mmol/L Anion Gap (3-11) BUN (7-18) mg/dl Creatinine (0.6-1.4) mg/dl Est Cr Clr Drug Dosing ml/min Est GFR ( Amer) Est GFR (Non-Af Amer) BUN/Creatinine Ratio (10-20) Glucose (70-99) mg/dl Calcium (8.5-10.1) mg/dl Phosphorus (2.5-4.9) mg/dl Magnesium (1.8-2.4) mg/dl Total Bilirubin (0.2-1) mg/dl Direct Bilirubin (0-0.2) mg/dl AST (15-37) U/L ALT (12-78) U/L Alkaline Phosphatase (45-117) U/L Total Creatine Kinase (39-308) U/L Total Protein (6.4-8.2) gm/dl Albumin (3.4-5.0) gm/dl Anti-Mitochondrial Ab (NEGATIVE) A. phagocytophilum DNA (Not Detected) EBV Capsid Ag IgG Ab U/mL EBV Capsid Ag IgM Ab U/mL EBV EA Restrict+Diffuse U/mL EBV Nuclear Antigen Ab U/mL EBV Antibody Interp HSV I IgM TORCH HSV II IgM TORCH Q Fever Phase I IgG Ab NEGATIVE Q Fever Phase I IgM Ab NEGATIVE Q Fever Phase II IgG Ab NEGATIVE Q Fever Phase II IgM Ab NEGATIVE [place] IgG Ab NOT DETECTED Rickettsia IgM Ab NOT DETECTED Typhus Fever IgG Ab NOT DETECTED Typhus Fever IgM Ab NOT DETECTED
[2020-08-31] MEDS ORDERED: MAGNESIUM SULFATE / D5W 1 GM/100 ML BAG IV ONE (10:15)
[2020-08-31 11:07] LABS: Epstein Barr Virus Early Ag Ab <9.00 U/mL
[2020-08-31] MEDS: ZOLPIDEM TARTRATE 5 MG TAB PO PRN (21:26)
[2020-08-31] MEDS: TAMSULOSIN HCL 0.4 MG CAP PO SCH (21:26)
--- NOTE | 2020-08-31 21:38 | Hospitalist Progress Note ---
Date of Service August 31, 2020 Assessment & Plan (1) Rhabdomyolysis: Elevated CK 12,578 upon admission which is now improved to 2300. Again likely related to statin use in the setting of antibiotic use causing drug- induced liver injury Continue to hydrate with IV fluids but developing volume overload with pitting edema in the feet-decrease IV fluids to 70 mL/h. Follow CPK in the morning Follow renal function, electrolytes-replace magnesium today (2) Abnormal LFTs: LFTs in a mixed hepatocellular/cholestatic picture Suspected drug-induced liver injury in setting of recent abx use (possibly Augmentin) along with statin use Also rhabdomyolysis contributing to elevated AST and ALT Anaplasmosis smear is negative, Anaplasma DNA PCR is negative Covid-19 is negative Hepatitis A, B and C are negative Q fever, Rickettsia titers, typhus fever titers all negative EBV titers suggestive of past infection but not acute infection LFTs continue to improve each day, INR remains normal CT abdomen and pelvis shows hepatomegaly, and hepatic steatosis. Liver US with fatty liver, neg for PVT, gallbladder normal -continue to hold atorvastatin and allopurinol for now -appreciate GI consultation -Follow LFTs, PT/INR in the morning -GI recommends if no improvement over the next 1 to 2 weeks and LFTs, consider liver biopsy (3) Elevated troponin I level: Troponin 0 0.048 upon admission, then was WNL on repeat then mildly elevated again this morning at 0.05 He denies any chest pain. He has no cardiac history at all and reports that prior to 2 weeks ago, he could climb to the top of [place] and he could drag a deer out of the roberts without any chest pain or shortness of breath ECGs here with normal sinus rhythm and sinus tachycardia with minimal voltage criteria for LVH and age undetermined possible inferior infarct This is likely myocardial demand ischemia Echocardiogram normal (4) Hypertension: BPs are controlled Continue metoprolol succinate 50 mg p.o. daily (5) BPH w urinary obs/LUTS: BPH with LUTS/hydroureteronephrosis bilaterally/bladder distention-this seems to be an ongoing problem over the last year Brennan catheter placed in ED. No evidence of UTI on urinalysis Appreciate urology consultation-Increase tamsulosin from 0.4 to 0.8 mg p.o. at bedtime, continue Brennan catheter -Continue finasteride Maintain Brennan catheter for at least 10-14 days and follow-up in the urology office to discuss further options for extremely large prostate with obstruction (6) Hydroureteronephrosis: See above (7) Bladder distention: See above (8) Hepatic steatosis: Needs outpatient GI follow-up GI recommends obtaining FibroScan as an outpatient to evaluate for fibrosis/cirrhosis Encouraged weight loss and low carbohydrate diet (9) Gout: No acute issues Hold allopurinol for now (10) Hyperlipidemia: Pt states his high dose statin is related to ineffective cholesterol lowering with lower dose Holding for now due to drug-induced liver injury and rhabdomyolysis (11) Hypokalemia: now improved after replacement (12) Anemia: Hemoglobin is low at 8.6 and has trended down from 12 in 01/2020 Normocytic Could be anemia of chronic kidney disease normal iron studies, B12, folate---> anemia of chronic disease (13) Rib pain: He reports pain at the bottoms of the rib cage anteriorly bilaterally after having abdominal ultrasound -ongoing, lidocaine patch did not help, Voltaren gel did not help, tramadol only helps minimally Oxycodone helps but he seems to be taking it quite often Also with rhabdomyolysis may be contributing is directly +TTP on exam making this musculoskeletal He declines x-rays of the ribs to look for fractures Encouraged him to avoid excessive opioid use especially in the setting of liver injury. Offered heating pad and he declined. Advised that he get up and move around more as he feels perhaps the pain is worsened by being sedentary (14) Chronic neck pain: continue home tramadol and oxycodone prn severe pain-worsened pain by hospitalization (15) Hypophosphatemia: Replaced and now resolved (16) Hypomagnesemia: Magnesium level 1.7 today which is improved from yesterday but still low replace with IV mag follow Mag level in AM (17) DVT prophylaxis: Heparin SQ Disposition-continued stay, likely to home in the next 1 to 2 days if continues to improve PT/OT consults appreciated Admission and Anticipated Discharge Date Admission Date: August 26, 2020 Subjective Patient continues to complain of pain in the right ribs in the right lower back and states that the Voltaren gel is not helping and he declines a heating pad. He reports he feels very tender to the touch and similar to when he had broken ribs in the past. I offered to check x-rays or CT scan and he declined this. Cautioned him on taking too many opioids and he reported that he would try not to take the oxycodone as much and stick to the tramadol. Otherwise denies nausea or abdominal pain, he moved his bowels today. No chest pains or shortness of breath. Review of Systems Review of Systems: All systems reviewed & are unremarkable except as noted in HPI & below Physical Exam Constitutional: WD/WN, vitals as above Eyes: + eyelid abnormality (mild crusting of lids) and + scleral abnormality (icterus); no conjunctival abnormality Neck: trachea midline, no thyromegaly Respiratory: normal respiratory effort, lungs clear to auscultation Cardiovascular: Rate/Rhythm: regular rate and regular rhythm Heart Sounds: no murmur Extremities: + edema (trace pitting edema bilat legs but 2+ pitting edema feet bilaterally) Chest (Breasts): Chest: normal inspection of chest Gastrointestinal (Abdomen): normal bowel sounds, soft, nontender, no hepatosplenomegaly Musculoskeletal: Extremities: extremities normal to inspection; no cyanosis and no clubbing Skin: no rashes, warm and dry Neurologic: moves all extremities and awake; no focal motor deficits Psychiatric: A+Ox3, euthymic affect Results & Data Results & Data ([facility]) Vital Signs (Past 12 Hours) Vital Signs Temp Pulse Resp BP Pulse Ox 08/31/20 16:00 36.6 C 81 20 123/75 98 Laboratory Results 08/31/20 08/31/20 08/31/20 Range/Units 05:54 05:54 05:54 WBC (4.8-10.8) K/uL RBC (4.7-6.1) M/uL Hgb (14.0-18.0) g/dL Hct (42-52) % MCV (80-100) fL MCH (25-34) pg MCHC (32-36) g/dL RDW Std Deviation (36.4-46.3) fL RDW Coeff of [place] (11.5-14.5) % Plt Count (130-400) K/uL MPV (7.4-10.4) fL Immature Gran % (Auto) % Neut % (Auto) % Lymph % (Auto) % [place] % (Auto) % Eos % (Auto) % Baso % (Auto) % Neut # (Auto) (1.4-6.5) K/uL Lymph # (Auto) (1.2-3.4) K/uL [place] # (Auto) (0.11-0.59) K/uL Eos # (Auto) (0-0.5) K/uL Baso # (Auto) (0-0.2) K/uL Immature Gran # (Auto) (0.00-0.02) K/uL Giant Platelets Polychromasia Ovalocytes PT 10.9 (9.0-12.0) Seconds INR 1.0 (0.9-1.1) Sodium 131 L (136-145) mmol/L Potassium 3.9 (3.5-5.1) mmol/L Chloride 100 (98-107) mmol/L Carbon Dioxide 25 (21-32) mmol/L Anion Gap 6.0 (3-11) BUN 18 (7-18) mg/dl Creatinine 0.80 (0.6-1.4) mg/dl Est Cr Clr Drug Dosing 97.6 ml/min Est GFR ( Amer) 110.2 Est GFR (Non-Af Amer) 95.1 BUN/Creatinine Ratio 22.2 H (10-20) Glucose 111 H (70-99) mg/dl Calcium 9.1 (8.5-10.1) mg/dl Phosphorus 2.7 (2.5-4.9) mg/dl Magnesium 1.7 L (1.8-2.4) mg/dl Total Bilirubin 4.3 H (0.2-1) mg/dl Direct Bilirubin 3.5 H (0-0.2) mg/dl AST 492 H (15-37) U/L ALT 411 H (12-78) U/L Alkaline Phosphatase 496 H (45-117) U/L Total Creatine Kinase 2366 H (39-308) U/L Total Protein 5.3 L (6.4-8.2) gm/dl Albumin 1.9 L (3.4-5.0) gm/dl Anti-Mitochondrial Ab (NEGATIVE) EBV Capsid Ag IgG Ab U/mL EBV Capsid Ag IgM Ab U/mL EBV EA Restrict+Diffuse U/mL EBV Nuclear Antigen Ab U/mL EBV Antibody Interp HSV I IgM TORCH HSV II IgM TORCH Q Fever Phase I IgG Ab Q Fever Phase I IgM Ab Q Fever Phase II IgG Ab Q Fever Phase II IgM Ab [place] IgG Ab [place] IgM Ab Typhus Fever IgG Ab Typhus Fever IgM Ab 08/31/20 08/28/20 08/27/20 Range/Units 05:54 05:58 15:05 WBC 6.88 (4.8-10.8) K/uL RBC 2.78 L (4.7-6.1) M/uL Hgb 8.6 L (14.0-18.0) g/dL Hct 27.2 L (42-52) % MCV 97.8 (80-100) fL MCH 30.9 (25-34) pg MCHC 31.6 L (32-36) g/dL RDW Std Deviation 63.2 H (36.4-46.3) fL RDW Coeff of [place] 17.7 H (11.5-14.5) % Plt Count 172 (130-400) K/uL MPV 11.2 H (7.4-10.4) fL Immature Gran % (Auto) 5.4 % Neut % (Auto) 68.2 % Lymph % (Auto) 19.5 % [place] % (Auto) 6.0 % Eos % (Auto) 0.6 % Baso % (Auto) 0.3 % Neut # (Auto) 4.70 (1.4-6.5) K/uL Lymph # (Auto) 1.34 (1.2-3.4) K/uL [place] # (Auto) 0.41 (0.11-0.59) K/uL Eos # (Auto) 0.04 (0-0.5) K/uL Baso # (Auto) 0.02 (0-0.2) K/uL Immature Gran # (Auto) 0.37 H (0.00-0.02) K/uL Giant Platelets 1+ Polychromasia 1+ Ovalocytes 1+ PT (9.0-12.0) Seconds INR (0.9-1.1) Sodium (136-145) mmol/L Potassium (3.5-5.1) mmol/L Chloride (98-107) mmol/L Carbon Dioxide (21-32) mmol/L Anion Gap (3-11) BUN (7-18) mg/dl Creatinine (0.6-1.4) mg/dl Est Cr Clr Drug Dosing ml/min Est GFR ( Amer) Est GFR (Non-Af Amer) BUN/Creatinine Ratio (10-20) Glucose (70-99) mg/dl Calcium (8.5-10.1) mg/dl Phosphorus (2.5-4.9) mg/dl Magnesium (1.8-2.4) mg/dl Total Bilirubin (0.2-1) mg/dl Direct Bilirubin (0-0.2) mg/dl AST (15-37) U/L ALT (12-78) U/L Alkaline Phosphatase (45-117) U/L Total Creatine Kinase (39-308) U/L Total Protein (6.4-8.2) gm/dl Albumin (3.4-5.0) gm/dl Anti-Mitochondrial Ab NEGATIVE (NEGATIVE) EBV Capsid Ag IgG Ab 22.20 H U/mL EBV Capsid Ag IgM Ab <36.00 U/mL EBV EA Restrict+Diffuse <9.00 U/mL EBV Nuclear Antigen Ab 125.00 H U/mL EBV Antibody Interp SEE NOTE HSV I IgM TORCH TNP HSV II IgM TORCH DNR Q Fever Phase I IgG Ab NEGATIVE Q Fever Phase I IgM Ab NEGATIVE Q Fever Phase II IgG Ab NEGATIVE Q Fever Phase II IgM Ab NEGATIVE [place] IgG Ab NOT DETECTED [place] IgM Ab NOT DETECTED Typhus Fever IgG Ab NOT DETECTED Typhus Fever IgM Ab NOT DETECTED PG Care Time/CCT Total # of Minutes Spent Total Time Spent with Patient: Total time spent is greater than 50% in coordination of care (as documented) at patient's floor/unit and/or counseling patient: Coding Level of Care Code 43317 Subseq Hosp Care Lvl 2 Diagnoses Rhabdomyolysis M62.82 Rhabdomyolysis type: non-traumatic Abnormal LFTs R94.5 Elevated troponin I level R77.8 Hypertension I10 BPH w urinary obs/LUTS N40.1; N13.8 Hydroureteronephrosis N13.30 Bladder distention N32.89 Hepatic steatosis K76.0 Gout M10.9 Hyperlipidemia E78.5 Hypokalemia E87.6 Anemia D64.9 Rib pain R07.81 Chronic neck pain M54.2; G89.29 Hypophosphatemia E83.39 Hypomagnesemia E83.42 DVT prophylaxis Z29.9 (1) Rhabdomyolysis Rhabdomyolysis type: non-traumatic Qualified Code(s): M62.82 - Rhabdomyolysis
[2020-09-01] MEDS: NSS + 20MEQ KCL 20 MEQ/1,000 ML BAG IV SCH (05:02)
[2020-09-01 06:48] LABS: Basophils # (auto) 0.01 K/uL (0-0.2); Basophils % (auto) 0.2 %; Eosinophils # (auto) 0.04 K/uL (0-0.5); Eosinophils % (auto) 0.7 %; Hematocrit (blood only) 28.1 % (42-52); Hemoglobin 8.9 g/dL (14.0-18.0); Immature Granulocytes # (auto) 0.29 K/uL (0.00-0.02); Immature Granulocytes % (auto) 4.9 %; Lymphocytes # (auto) 1.17 K/uL (1.2-3.4); Lymphocytes % (auto) 19.7 %; Mean Corpuscular Hemoglobin 31.1 pg (25-34); Mean Corpuscular Hgb Conc 31.7 g/dL (32-36); Mean Corpuscular Volume 98.3 fL (80-100); Mean Platelet Volume 10.9 fL (7.4-10.4); Monocytes # (auto) 0.48 K/uL (0.11-0.59); Monocytes % (auto) 8.1 %; Neutrophils # (auto) 3.95 K/uL (1.4-6.5); Neutrophils % (auto) 66.4 %; Platelet Count 196 K/uL (130-400); RDW Coefficient of Variation 18.1 % (11.5-14.5); RDW Standard Deviation 64.1 fL (36.4-46.3); Red Blood Count 2.86 M/uL (4.7-6.1); White Blood Count 5.94 K/uL (4.8-10.8)
[2020-09-01 06:57] LABS: Prothrombin Time 10.9 Seconds (9.0-12.0)
[2020-09-01 07:18] LABS: Albumin Level 2.1 gm/dl (3.4-5.0); BUN Creatinine Ratio 14.2 (10-20); Calcium 9.2 mg/dl (8.5-10.1); Creatinine Clr Calc Pharmacy 81.3 ml/min; Est GFR (African American) 97.1; Est GFR (Non-African American) 83.8; Magnesium 1.8 mg/dl (1.8-2.4); Potassium 3.5 mmol/L (3.5-5.1)
[2020-09-01 07:34] LABS: Bilirubin Direct 2.8 mg/dl (0-0.2); Bilirubin,Total 3.4 mg/dl (0.2-1); Phosphorus 2.7 mg/dl (2.5-4.9); Total Protein 5.9 gm/dl (6.4-8.2)
[2020-09-01] MEDS: LANSOPRAZOLE 15 MG SOLTAB PO SCH ×2 (08:25→08:34)
[2020-09-01] MEDS: HEPARIN SOD 5,000 UNIT/0.5 ML VIAL SQ SCH ×2 (08:25→21:01)
[2020-09-01] MEDS: DICLOFENAC SOD 1% GEL 100 GM TUBE EXT SCH ×4 (08:26→21:03)
[2020-09-01] MEDS: FINASTERIDE 5 MG TAB PO SCH (08:34)
[2020-09-01] MEDS: METOPROLOL SUCC 50MG EXT REL TAB PO SCH (08:35)
--- NOTE | 2020-09-01 10:16 | Gastroenterology Progress Note ---
Date of Service September 01, 2020 Assessment & Plan (1) Abnormal LFTs: This is a 65 y/o male with PMHx HLD, BPH, admitted with RACHID, elevated LFTs and rhabdomyolysis. GI consulted for abnormal LFTs. Pattern of LFT elevation c/w DILI (was on Augmentin + high-dose atorvastatin) vs viral hepatitis. - LFTs and CPK continue to slowly improve, INR remains WNL. He has BPH w/ LUTS and beach in place; plan for keeping in place for at least the next 10-14 days with f/u with urology. - INR remains WNL and pt without encephalopathy; monitor INR, LFTs, CPK - Continue supportive care with IV hydration - Acute viral hep, EBV neg, HSV ab neg - US ABD with no jhony dil or biliary stone - After discharge, would continue to monitor LFTs with PCP; repeat as an outpt in 1-2 weeks. If LFTs don't resolve, consider liver biopsy (2) Anemia: HGB 12->9 since last year of unclear etiology - Recommend outpt EGD/colonoscopy to eval for occult GI bleeding (3) Hepatic steatosis: Can obtain Fibroscan as an outpt to eval for fibrosis/cirrhosis Admission and Anticipated Discharge Date Admission Date: August 26, 2020 Admission and Anticipated Discharge Date Admission Date: August 26, 2020 Supervising Physician Co-Signing Physician Notes I saw and evaluated the patient. The patient was thought to have rhabdomyolysis and drug-induced liver disease as result of a combination of statin use with Augmentin. The patient does appear to be improving and will need to have his liver enzymes monitored by his primary care provider over the next few weeks. He is to have a repeat upper endoscopy and colonoscopy with Dr. Harrison, his normal GI provider over the next few weeks. Please call with any questions or concerns, GI to sign off Subjective Patient seen and examined, chart reviewed. Continues to fell well; having some back discomfort worsened from hospital bed/chair. Tolerating regular diet. No nausea, vomiting, abd pain, jaundice, fever, CP, SOB. Review of Systems Review of Systems: All systems reviewed & are unremarkable except as noted in HPI & below Physical Exam Constitutional: WD/WN, vitals as above Respiratory: normal respiratory effort Gastrointestinal (Abdomen): Inspection/Auscultation: abdomen normal to inspection and normal bowel sounds; abdomen not distended Percussion/Palpation: abdomen soft; abdomen nontender Skin: no rashes, warm and dry Psychiatric: A+Ox3, euthymic affect Results & Data ([facility]) Vital Signs (Past 12 Hours) Vital Signs Temp Pulse Pulse Resp BP Pulse Ox 09/01/20 07:31 37.2 C 106 H 20 110/72 96 09/01/20 02:46 36.9 C 99 H 15 121/75 97 08/31/20 22:27 36.8 C 91 H 18 147/77 H 97 Laboratory Results 09/01/20 09/01/20 09/01/20 Range/Units 06:27 06:27 06:27 WBC 5.94 (4.8-10.8) K/uL RBC 2.86 L (4.7-6.1) M/uL Hgb 8.9 L (14.0-18.0) g/dL Hct 28.1 L (42-52) % MCV 98.3 (80-100) fL MCH 31.1 (25-34) pg MCHC 31.7 L (32-36) g/dL RDW Std Deviation 64.1 H (36.4-46.3) fL RDW Coeff of [place] 18.1 H (11.5-14.5) % Plt Count 196 (130-400) K/uL MPV 10.9 H (7.4-10.4) fL Immature Gran % (Auto) 4.9 % Neut % (Auto) 66.4 % Lymph % (Auto) 19.7 % [place] % (Auto) 8.1 % Eos % (Auto) 0.7 % Baso % (Auto) 0.2 % Neut # (Auto) 3.95 (1.4-6.5) K/uL Lymph # (Auto) 1.17 L (1.2-3.4) K/uL [place] # (Auto) 0.48 (0.11-0.59) K/uL Eos # (Auto) 0.04 (0-0.5) K/uL Baso # (Auto) 0.01 (0-0.2) K/uL Immature Gran # (Auto) 0.29 H (0.00-0.02) K/uL PT 10.9 (9.0-12.0) Seconds INR 1.0 (0.9-1.1) Sodium 136 (136-145) mmol/L Potassium 3.5 (3.5-5.1) mmol/L Chloride 103 (98-107) mmol/L Carbon Dioxide 23 (21-32) mmol/L Anion Gap 10.0 (3-11) BUN 14 (7-18) mg/dl Creatinine 0.96 (0.6-1.4) mg/dl Est Cr Clr Drug Dosing 81.3 ml/min Est GFR ( Amer) 97.1 Est GFR (Non-Af Amer) 83.8 BUN/Creatinine Ratio 14.2 (10-20) Glucose 120 H (70-99) mg/dl Calcium 9.2 (8.5-10.1) mg/dl Phosphorus 2.7 (2.5-4.9) mg/dl Magnesium 1.8 (1.8-2.4) mg/dl Total Bilirubin 3.4 H (0.2-1) mg/dl Direct Bilirubin 2.8 H (0-0.2) mg/dl AST 332 H (15-37) U/L ALT 362 H (12-78) U/L Alkaline Phosphatase 484 H (45-117) U/L Total Creatine Kinase 1427 H (39-308) U/L Total Protein 5.9 L (6.4-8.2) gm/dl Albumin 2.1 L (3.4-5.0) gm/dl Anti-Mitochondrial Ab (NEGATIVE) EBV Capsid Ag IgG Ab U/mL EBV Capsid Ag IgM Ab U/mL EBV EA Restrict+Diffuse U/mL EBV Nuclear Antigen Ab U/mL EBV Antibody Interp HSV I IgM TORCH HSV II IgM TORCH 08/31/20 08/28/20 Range/Units 05:54 05:58 WBC (4.8-10.8) K/uL RBC (4.7-6.1) M/uL Hgb (14.0-18.0) g/dL Hct (42-52) % MCV (80-100) fL MCH (25-34) pg MCHC (32-36) g/dL RDW Std Deviation (36.4-46.3) fL RDW Coeff of [place] (11.5-14.5) % Plt Count (130-400) K/uL MPV (7.4-10.4) fL Immature Gran % (Auto) % Neut % (Auto) % Lymph % (Auto) % [place] % (Auto) % Eos % (Auto) % Baso % (Auto) % Neut # (Auto) (1.4-6.5) K/uL Lymph # (Auto) (1.2-3.4) K/uL [place] # (Auto) (0.11-0.59) K/uL Eos # (Auto) (0-0.5) K/uL Baso # (Auto) (0-0.2) K/uL Immature Gran # (Auto) (0.00-0.02) K/uL PT (9.0-12.0) Seconds INR (0.9-1.1) Sodium (136-145) mmol/L Potassium (3.5-5.1) mmol/L Chloride (98-107) mmol/L Carbon Dioxide (21-32) mmol/L Anion Gap (3-11) BUN (7-18) mg/dl Creatinine (0.6-1.4) mg/dl Est Cr Clr Drug Dosing ml/min Est GFR ( Amer) Est GFR (Non-Af Amer) BUN/Creatinine Ratio (10-20) Glucose (70-99) mg/dl Calcium (8.5-10.1) mg/dl Phosphorus (2.5-4.9) mg/dl Magnesium (1.8-2.4) mg/dl Total Bilirubin (0.2-1) mg/dl Direct Bilirubin (0-0.2) mg/dl AST (15-37) U/L ALT (12-78) U/L Alkaline Phosphatase (45-117) U/L Total Creatine Kinase 2366 H (39-308) U/L Total Protein (6.4-8.2) gm/dl Albumin (3.4-5.0) gm/dl Anti-Mitochondrial Ab NEGATIVE (NEGATIVE) EBV Capsid Ag IgG Ab 22.20 H U/mL EBV Capsid Ag IgM Ab <36.00 U/mL EBV EA Restrict+Diffuse <9.00 U/mL EBV Nuclear Antigen Ab 125.00 H U/mL EBV Antibody Interp SEE NOTE HSV I IgM TORCH TNP HSV II IgM TORCH DNR
[2020-09-01] MEDS: traMADol HCL 50 MG TABLET PO PRN (16:18)
[2020-09-01] MEDS ORDERED: CYCLOBENZAPRINE HCL 10 MG TAB PO PRN (17:17)
--- NOTE | 2020-09-01 17:19 | Hospitalist Progress Note ---
Date of Service September 01, 2020 Assessment & Plan (1) Rhabdomyolysis: Elevated CK 12,578 upon admission which is now improved to 1427. Likely related to statin use in the setting of antibiotic use causing drug- induced liver injury Hydrated with copious IV fluids but developing volume overload with worsening pitting edema in the feet--> dc IVFs and give IV lasix now Follow CPK in the morning Follow renal function, electrolytes-all much improved (2) Abnormal LFTs: LFTs in a mixed hepatocellular/cholestatic picture Suspected drug-induced liver injury in setting of recent abx use (possibly Augmentin) along with statin use Also rhabdomyolysis contributing to elevated AST and ALT Anaplasmosis smear is negative, Anaplasma DNA PCR is negative Covid-19 is negative Hepatitis A, B and C are negative Q fever, Rickettsia titers, typhus fever titers all negative EBV titers suggestive of past infection but not acute infection LFTs again are much improved today, INR remains normal CT abdomen and pelvis shows hepatomegaly, and hepatic steatosis. Liver US with fatty liver, neg for PVT, gallbladder normal -continue to hold atorvastatin and allopurinol for now -appreciate GI consultation -Follow LFTs, PT/INR in the morning -GI recommends if no improvement over the next 1 to 2 weeks and LFTs, consider liver biopsy -needs outpt GI f/u (3) Peripheral edema: secondary to hypoalbuminemia from liver issues and acute illness, also from copious volume resuscitation for rhabdo -dc IVFs -give IV lasix 20mg IV x 1 -encouraged increased po protein intake (4) Elevated troponin I level: Troponin 0 0.048 upon admission, then was WNL on repeat then mildly elevated again this morning at 0.05 He denies any chest pain. He has no cardiac history at all and reports that prior to 2 weeks ago, he could climb to the top of [email or web address] and he could drag a deer out of the roberts without any chest pain or shortness of breath ECGs here with normal sinus rhythm and sinus tachycardia with minimal voltage criteria for LVH and age undetermined possible inferior infarct This is likely myocardial demand ischemia Echocardiogram normal (5) Hypertension: BPs are controlled Continue metoprolol succinate 50 mg p.o. daily (6) BPH w urinary obs/LUTS: BPH with LUTS/hydroureteronephrosis bilaterally/bladder distention-this seems to be an ongoing problem over the last year Brennan catheter placed in ED. No evidence of UTI on urinalysis Appreciate urology consultation-Increase tamsulosin from 0.4 to 0.8 mg p.o. at bedtime, continue Brennan catheter -Continue finasteride Maintain Brennan catheter for at least 10-14 days and follow-up in the urology office to discuss further options for extremely large prostate with obstruction (7) Hydroureteronephrosis: See above (8) Bladder distention: See above (9) Hepatic steatosis: Needs outpatient GI follow-up GI recommends obtaining FibroScan as an outpatient to evaluate for fibrosis/cirrhosis Encouraged weight loss and low carbohydrate diet (10) Gout: No acute issues Hold allopurinol for now (11) Hyperlipidemia: Pt states his high dose statin is related to ineffective cholesterol lowering with lower dose Holding for now due to drug-induced liver injury and rhabdomyolysis (12) Hypokalemia: now improved after replacement (13) Anemia: Hemoglobin is low at 8.6 and has trended down from 12 in 01/2020 Normocytic Could be anemia of chronic kidney disease normal iron studies, B12, folate---> anemia of chronic disease -needs outpt EGD/colonoscopy as per GI (14) Rib pain: He reports pain at the bottoms of the rib cage anteriorly bilaterally after having abdominal ultrasound -ongoing, lidocaine patch did not help, Voltaren gel did not help, tramadol only helps minimally Oxycodone helps but he seems to be taking it quite often Also with rhabdomyolysis may be contributing is directly +TTP on exam making this musculoskeletal He declines x-rays of the ribs to look for fractures Encouraged him to avoid excessive opioid use especially in the setting of liver injury. Offered heating pad and he declined. Advised that he get up and move around more as he feels perhaps the pain is worsened by being sedentary (15) Chronic neck pain: continue home tramadol and oxycodone prn severe pain-worsened pain by hospitalization (16) Hypophosphatemia: Replaced and now resolved (17) Hypomagnesemia: replaced and resolved follow mag level in AM (18) Sacroiliitis: acute on chronic R>L, typically goes to chiropractor -add lidocaine patch to lower back add FLexeril for muscle spasm continue oxycodone as needed hopefully will improve after discharge if goes to chiropractor and goes home to sleep in more comfortable bed (19) DVT prophylaxis: Heparin SQ Disposition-continued stay, likely to home tomorrow if LFs continue to trend downward PT/OT consults appreciated Admission and Anticipated Discharge Date Admission Date: August 26, 2020 Subjective Still having right>left lower back pain radiating through buttocks, similar to prior episodes of sacroiliitis. He says the bed firmness makes it so much worse and he cannot sleep. He is frustrated and lost his appetite today because of the pain. He typically will see a chiropractor for this and that helps a lot. Otherwise, has c/o significant edema in the feet. No SOB, no other concerns. Review of Systems Review of Systems: All systems reviewed & are unremarkable except as noted in HPI & below Physical Exam Constitutional: WD/WN, vitals as above Eyes: + scleral abnormality (icterus); no conjunctival abnormality Neck: trachea midline, no thyromegaly Respiratory: normal respiratory effort, lungs clear to auscultation Cardiovascular: Rate/Rhythm: regular rate and regular rhythm Heart Sounds: no murmur Extremities: + edema (trace pitting edema bilat legs but 3+ pitting edema feet bilaterally) Chest (Breasts): Chest: normal inspection of chest Gastrointestinal (Abdomen): normal bowel sounds, soft, nontender, no hepa tosplenomegaly Musculoskeletal: Spine: + paraspinal tenderness (right lower back, no masses) Extremities: no cyanosis and no clubbing Skin: no rashes, warm and dry Neurologic: moves all extremities and awake; no focal motor deficits Psychiatric: A+Ox3, euthymic affect Results & Data Results & Data ([facility]) Vital Signs (Past 12 Hours) Vital Signs Temp Pulse Resp BP Pulse Ox 09/01/20 07:31 37.2 C 106 H 20 110/72 96 Laboratory Results 09/01/20 09/01/20 09/01/20 Range/Units 06:27 06:27 06:27 WBC 5.94 (4.8-10.8) K/uL RBC 2.86 L (4.7-6.1) M/uL Hgb 8.9 L (14.0-18.0) g/dL Hct 28.1 L (42-52) % MCV 98.3 (80-100) fL MCH 31.1 (25-34) pg MCHC 31.7 L (32-36) g/dL RDW Std Deviation 64.1 H (36.4-46.3) fL RDW Coeff of Cody 18.1 H (11.5-14.5) % Plt Count 196 (130-400) K/uL MPV 10.9 H (7.4-10.4) fL Immature Gran % (Auto) 4.9 % Neut % (Auto) 66.4 % Lymph % (Auto) 19.7 % [place] % (Auto) 8.1 % Eos % (Auto) 0.7 % Baso % (Auto) 0.2 % Neut # (Auto) 3.95 (1.4-6.5) K/uL Lymph # (Auto) 1.17 L (1.2-3.4) K/uL [place] # (Auto) 0.48 (0.11-0.59) K/uL Eos # (Auto) 0.04 (0-0.5) K/uL Baso # (Auto) 0.01 (0-0.2) K/uL Immature Gran # (Auto) 0.29 H (0.00-0.02) K/uL PT 10.9 (9.0-12.0) Seconds INR 1.0 (0.9-1.1) Sodium 136 (136-145) mmol/L Potassium 3.5 (3.5-5.1) mmol/L Chloride 103 (98-107) mmol/L Carbon Dioxide 23 (21-32) mmol/L Anion Gap 10.0 (3-11) BUN 14 (7-18) mg/dl Creatinine 0.96 (0.6-1.4) mg/dl Est Cr Clr Drug Dosing 81.3 ml/min Est GFR ( Amer) 97.1 Est GFR (Non-Af Amer) 83.8 BUN/Creatinine Ratio 14.2 (10-20) Glucose 120 H (70-99) mg/dl Calcium 9.2 (8.5-10.1) mg/dl Phosphorus 2.7 (2.5-4.9) mg/dl Magnesium 1.8 (1.8-2.4) mg/dl Total Bilirubin 3.4 H (0.2-1) mg/dl Direct Bilirubin 2.8 H (0-0.2) mg/dl AST 332 H (15-37) U/L ALT 362 H (12-78) U/L Alkaline Phosphatase 484 H (45-117) U/L Total Creatine Kinase 1427 H (39-308) U/L Total Protein 5.9 L (6.4-8.2) gm/dl Albumin 2.1 L (3.4-5.0) gm/dl PG Care Time/CCT Total # of Minutes Spent Total Time Spent with Patient: Total time spent is greater than 50% in coordination of care (as documented) at patient's floor/unit and/or counseling patient: Coding Level of Care Code 27773 Subseq Hosp Care Lvl 3 Diagnoses Rhabdomyolysis Rhabdomyolysis type: non-traumatic Abnormal LFTs R94.5 Peripheral edema R60.9 Elevated troponin I level R77.8 Hypertension I10 BPH w urinary obs/LUTS N40.1; N13.8 Hydroureteronephrosis N13.30 Bladder distention N32.89 Hepatic steatosis K76.0 Gout M10.9 Hyperlipidemia E78.5 Hypokalemia E87.6 Anemia D64.9 Rib pain R07.81 Chronic neck pain M54.2; G89.29 Hypophosphatemia E83.39 Hypomagnesemia E83.42 Sacroiliitis M46.1 DVT prophylaxis Z29.9 (1) Rhabdomyolysis Rhabdomyolysis type: non-traumatic Qualified Code(s): M6.82 - Rhabdomyolysis
[2020-09-01] MEDS ORDERED: FUROSEMIDE 20 MG in SYRINGE 0 ML IV ONE (17:30)
[2020-09-01] MEDS: LIDOCAINE 5% 1 PATCH TD SCH (18:30)
[2020-09-01] MEDS: oxyCODONE HCL IR 5 MG TAB (IMMEDIATE RELEASE) PO PRN (21:01)
[2020-09-01] MEDS: TAMSULOSIN HCL 0.4 MG CAP PO SCH (21:04)
[2020-09-02] MEDS: traMADol HCL 50 MG TABLET PO PRN ×3 (03:22→18:53)
[2020-09-02] MEDS: oxyCODONE HCL IR 5 MG TAB (IMMEDIATE RELEASE) PO PRN ×4 (04:35→23:55)
[2020-09-02 06:56] LABS: Basophils # (auto) 0.01 K/uL (0-0.2); Basophils % (auto) 0.2 %; Eosinophils # (auto) 0.04 K/uL (0-0.5); Eosinophils % (auto) 0.7 %; Hematocrit (blood only) 25.5 % (42-52); Hemoglobin 8.2 g/dL (14.0-18.0); Immature Granulocytes # (auto) 0.26 K/uL (0.00-0.02); Immature Granulocytes % (auto) 4.6 %; Lymphocytes # (auto) 1.23 K/uL (1.2-3.4); Lymphocytes % (auto) 21.8 %; Mean Corpuscular Hemoglobin 31.5 pg (25-34); Mean Corpuscular Hgb Conc 32.2 g/dL (32-36); Mean Corpuscular Volume 98.1 fL (80-100); Mean Platelet Volume 10.8 fL (7.4-10.4); Monocytes # (auto) 0.68 K/uL (0.11-0.59); Monocytes % (auto) 12.1 %; Neutrophils # (auto) 3.42 K/uL (1.4-6.5); Neutrophils % (auto) 60.6 %; Nucleated RBC # (auto) 0.02 K/uL (0-0); Nucleated RBC % (auto) 0.3 %; Platelet Count 217 K/uL (130-400); RDW Coefficient of Variation 18.2 % (11.5-14.5); RDW Standard Deviation 65.4 fL (36.4-46.3); White Blood Count 5.64 K/uL (4.8-10.8)
[2020-09-02 07:04] LABS: Prothrombin Time 10.9 Seconds (9.0-12.0)
[2020-09-02 07:25] LABS: BUN Creatinine Ratio 15.3 (10-20); Calcium 8.7 mg/dl (8.5-10.1); Creatinine Clr Calc Pharmacy 101.4 ml/min; Est GFR (African American) 111.9; Est GFR (Non-African American) 96.6; Magnesium 1.6 mg/dl (1.8-2.4); Potassium 3.3 mmol/L (3.5-5.1)
[2020-09-02 07:36] LABS: Bilirubin Direct 2.3 mg/dl (0-0.2); Bilirubin,Total 2.7 mg/dl (0.2-1); Phosphorus 3.5 mg/dl (2.5-4.9); Total Protein 5.6 gm/dl (6.4-8.2)
[2020-09-02] MEDS: LIDOCAINE 5% 1 PATCH TD SCH (07:39)
[2020-09-02] MEDS: DICLOFENAC SOD 1% GEL 100 GM TUBE EXT SCH ×4 (07:40→21:25)
[2020-09-02] MEDS: METOPROLOL SUCC 50MG EXT REL TAB PO SCH (07:40)
[2020-09-02] MEDS: HEPARIN SOD 5,000 UNIT/0.5 ML VIAL SQ SCH ×2 (07:41→21:30)
[2020-09-02] MEDS: FINASTERIDE 5 MG TAB PO SCH (07:41)
[2020-09-02] MEDS: FUROSEMIDE 20 MG in SYRINGE 0 ML IV SCH (09:44)
[2020-09-02] MEDS ORDERED: POTASSIUM CHLORIDE CRTAB 20 MEQ TABCR PO STA (10:26)
[2020-09-02] MEDS: MAGNESIUM SULFATE / D5W 1 GM/100 ML BAG IV SCH ×2 (11:21→11:23)
[2020-09-02] MEDS ORDERED: COLCHICINE 0.6 MG TAB PO STA (12:57)
[2020-09-02] MEDS ORDERED: MELATONIN 3 MG TAB PO PRN (13:12)
[2020-09-02] MEDS ORDERED: methylPREDNISolone 4 MG TAB, 6 DAY TAPER PO SCH (13:15)
--- NOTE | 2020-09-02 13:24 | Hospitalist Progress Note ---
Date of Service September 02, 2020 Assessment & Plan (1) Rhabdomyolysis: Elevated CK 12,578 upon admission which is now improved to 600 Likely related to statin use in the setting of antibiotic use causing drug- induced liver injury Hydrated with copious IV fluids but developing volume overload with worsening pitting edema in the feet--> dcd IVFs and gave IV lasix --> improved but still present--> give another dose IV lasix this AM Follow CPK in the morning Follow renal function, electrolytes-all much improved (2) Abnormal LFTs: LFTs in a mixed hepatocellular/cholestatic picture Suspected drug-induced liver injury in setting of recent abx use (possibly Augmentin) along with statin use Also rhabdomyolysis contributing to elevated AST and ALT Anaplasmosis smear is negative, Anaplasma DNA PCR is negative Covid-19 is negative Hepatitis A, B and C are negative Q fever, Rickettsia titers, typhus fever titers all negative EBV titers suggestive of past infection but not acute infection LFTs again are now significantly improved, INR remains normal CT abdomen and pelvis shows hepatomegaly, and hepatic steatosis. Liver US with fatty liver, neg for PVT, gallbladder normal -continue to hold atorvastatin and allopurinol for now -appreciate GI consultation -Follow LFTs, PT/INR in the morning and if continues to trend downward, ok for discharge and f/u LFTs in 1 week as outpt -GI recommends if no improvement over the next 1 to 2 weeks and LFTs, consider liver biopsy -needs outpt GI f/u (3) Peripheral edema: secondary to hypoalbuminemia from liver issues and acute illness, also from copious volume resuscitation for rhabdo Now much improved since dc-ing IVFs and giving lasix -give another dose today of IV lasix -encouraged increased po protein intake (4) Elevated troponin I level: Troponin 0 0.048 upon admission, then was WNL on repeat then mildly elevated again this morning at 0.05 He denies any chest pain. He has no cardiac history at all and reports that prior to 2 weeks ago, he could climb to the top of [employer] and he could drag a deer out of the [place] without any chest pain or shortness of breath ECGs here with normal sinus rhythm and sinus tachycardia with minimal voltage criteria for LVH and age undetermined possible inferior infarct This is likely myocardial demand ischemia Echocardiogram normal (5) Hypertension: BPs are controlled Continue metoprolol succinate 50 mg p.o. daily (6) BPH w urinary obs/LUTS: BPH with LUTS/hydroureteronephrosis bilaterally/bladder distention-this seems to be an ongoing problem over the last year Brennan catheter placed in ED. No evidence of UTI on urinalysis Appreciate urology consultation-Increase tamsulosin from 0.4 to 0.8 mg p.o. at bedtime, continue Brennan catheter -Continue finasteride Maintain Brennan catheter for at least 10-14 days and follow-up in the urology office to discuss further options for extremely large prostate with obstruction (7) Hydroureteronephrosis: See above (8) Bladder distention: See above (9) Gout: with acute flare now on 09/02 in right ankle, right elbow, left wrist Hold allopurinol for now -start Medrol Dose Pack (10) Hepatic steatosis: Needs outpatient GI follow-up GI recommends obtaining FibroScan as an outpatient to evaluate for fibrosis/cirrhosis Encouraged weight loss and low carbohydrate diet (11) Hyperlipidemia: Pt states his high dose statin is related to ineffective cholesterol lowering with lower dose Holding for now due to drug-induced liver injury and rhabdomyolysis (12) Hypokalemia: was improved but down again today due to Lasix use -replace with po lasix follow BMP, mag in AM replacing Mag (13) Anemia: Hemoglobin is low at 8.2 and has trended down from 12 in 01/2020 Normocytic No bleeding from anywhere normal iron studies, B12, folate---> anemia of chronic disease -needs outpt EGD/colonoscopy as per GI (14) Rib pain: He reports pain at the bottoms of the rib cage anteriorly bilaterally after having abdominal ultrasound -ongoing, lidocaine patch did not help, Voltaren gel did not help, tramadol only helps minimally Oxycodone helps but he seems to be taking it quite often Also with rhabdomyolysis may be contributing is directly +TTP on exam making this musculoskeletal He declines x-rays of the ribs to look for fractures Encouraged him to avoid excessive opioid use especially in the setting of liver injury. Offered heating pad and he declined. Advised that he get up and move around more as he feels perhaps the pain is worsened by being sedentary (15) Chronic neck pain: continue home tramadol and oxycodone prn severe pain-worsened pain by hospitalization (16) Hypophosphatemia: Replaced and now resolved (17) Hypomagnesemia: low again today after getting IV lasix -replace with IV magnesium follow mag level in AM (18) Sacroiliitis: acute on chronic R>L, typically goes to chiropractor -added lidocaine patch to lower back added FLexeril for muscle spasm and did not help--> will dc continue oxycodone as needed hopefully will improve after discharge if goes to chiropractor and goes home to sleep in more comfortable bed (19) DVT prophylaxis: Heparin SQ Disposition-continued stay, likely to home tomorrow if gout improved and LFTs continue to trend downward, peripheral edema improved PT/OT consults appreciated Admission and Anticipated Discharge Date Admission Date: August 26, 2020 Subjective Pt has c/o gout flare on right medial ankle that is very tender and red as well as right elbow and left wrist. Still with right lower back pain radiating through rt buttock and reports Flexeril did nothing for that pain. He initially reports he is not sleeping at all, then when asked about Flexeril said he thinks it made him fall into a deep sleep. Denies SOB. Has not been ambulating today due to the gout flare in the ankle. States he usually takes a Medrol Dose pack Review of Systems Review of Systems: All systems reviewed & are unremarkable except as noted in HPI & below Physical Exam Constitutional: WD/WN, vitals as above Eyes: + scleral abnormality (icterus); no conjunctival abnormality Neck: trachea midline, no thyromegaly Respiratory: normal respiratory effort, lungs clear to auscultation Cardiovascular: Rate/Rhythm: regular rate and regular rhythm Heart Sounds: no murmur Extremities: + edema (much improved 1+ pitting edema feet bilaterally) Chest (Breasts): Chest: normal inspection of chest Gastrointestinal (Abdomen): normal bowel sounds, soft, nontender, no hepatosplenomegaly Musculoskeletal: Extremities: + extremities abnormal to inspection (right elbow mild olecrenon swelling which is chronic with mild new erythema), no cyanosis and no clubbing Ankle: + skin erythema (righ tmedial ankle,++TTP) Skin: + erythema (rt ankle, rt elbow, left dorsal wrist) Neurologic: moves all extremities and awake; no focal motor deficits Psychiatric: A+Ox3, euthymic affect Results & Data Results & Data ([facility]) Vital Signs (Past 12 Hours) Vital Signs Temp Pulse Resp BP Pulse Ox 09/02/20 07:35 37.4 C 86 18 118/74 92 09/02/20 04:30 106/72 Laboratory Results 09/02/20 09/02/20 09/02/20 Range/Units 06:34 06:34 06:34 WBC 5.64 (4.8-10.8) K/uL RBC 2.60 L (4.7-6.1) M/uL Hgb 8.2 L (14.0-18.0) g/dL Hct 25.5 L (42-52) % MCV 98.1 (80-100) fL MCH 31.5 (25-34) pg MCHC 32.2 (32-36) g/dL RDW Std Deviation 65.4 H (36.4-46.3) fL RDW Coeff of [place] 18.2 H (11.5-14.5) % Plt Count 217 (130-400) K/uL MPV 10.8 H (7.4-10.4) fL Immature Gran % (Auto) 4.6 % Neut % (Auto) 60.6 % Lymph % (Auto) 21.8 % [place] % (Auto) 12.1 % Eos % (Auto) 0.7 % Baso % (Auto) 0.2 % Neut # (Auto) 3.42 (1.4-6.5) K/uL Lymph # (Auto) 1.23 (1.2-3.4) K/uL [place] # (Auto) 0.68 H (0.11-0.59) K/uL Eos # (Auto) 0.04 (0-0.5) K/uL Baso # (Auto) 0.01 (0-0.2) K/uL Immature Gran # (Auto) 0.26 H (0.00-0.02) K/uL Absolute Nucleated RBC 0.02 H (0-0) K/uL Nucleated RBC % (auto) 0.3 % PT 10.9 (9.0-12.0) Seconds INR 1.0 (0.9-1.1) Sodium 135 L (136-145) mmol/L Potassium 3.3 L (3.5-5.1) mmol/L Chloride 102 (98-107) mmol/L Carbon Dioxide 27 (21-32) mmol/L Anion Gap 6.0 (3-11) BUN 12 (7-18) mg/dl Creatinine 0.77 (0.6-1.4) mg/dl Est Cr Clr Drug Dosing 101.4 ml/min Est GFR ( Amer) 111.9 Est GFR (Non-Af Amer) 96.6 BUN/Creatinine Ratio 15.3 (10-20) Glucose 109 H (70-99) mg/dl Calcium 8.7 (8.5-10.1) mg/dl Phosphorus 3.5 (2.5-4.9) mg/dl Magnesium 1.6 L (1.8-2.4) mg/dl Total Bilirubin 2.7 H (0.2-1) mg/dl Direct Bilirubin 2.3 H (0-0.2) mg/dl AST 203 H (15-37) U/L ALT 275 H (12-78) U/L Alkaline Phosphatase 425 H (45-117) U/L Total Creatine Kinase 677 H (39-308) U/L Total Protein 5.6 L (6.4-8.2) gm/dl Albumin 2.0 L (3.4-5.0) gm/dl PG Care Time/CCT Total # of Minutes Spent Total Time Spent with Patient: Total time spent is greater than 50% in coordination of care (as documented) at patient's floor/unit and/or counseling patient: Coding Level of Care Code 59409 Subseq Hosp Care Lvl 3 Diagnoses Rhabdomyolysis Rhabdomyolysis type: non-traumatic Abnormal LFTs R94.5 Peripheral edema R60.9 Elevated troponin I level R77.8 Hypertension I10 BPH w urinary obs/LUTS N40.1; N13.8 Hydroureteronephrosis N13.30 Bladder distention N32.89 Gout M10.9 Hepatic steatosis K76.0 Hyperlipidemia E78.5 Hypokalemia E87.6 Anemia D64.9 Rib pain R07.81 Chronic neck pain M54.2; G89.29 Hypophosphatemia E83.39 Hypomagnesemia E83.42 Sacroiliitis M46.1 DVT prophylaxis Z29.9 (1) Rhabdomyolysis Rhabdomyolysis type: non-traumatic Qualified Code(s): M62.82 - Rhabdomyolysis
[2020-09-02] MEDS ORDERED: methylPREDNISolone 4 MG TAB PO STA (13:41)
[2020-09-02] MEDS: LANSOPRAZOLE 15 MG SOLTAB PO SCH (14:41)
[2020-09-02] MEDS ORDERED: methylPREDNISolone 4 MG TAB PO SCH ×2 (18:00→21:00)
[2020-09-02] MEDS ORDERED: KETOROLAC TROMETHAMINE 10 MG TABLET PO STA (19:55)
[2020-09-02] MEDS: TAMSULOSIN HCL 0.4 MG CAP PO SCH (21:27)
[2020-09-03] MEDS: traMADol HCL 50 MG TABLET PO PRN ×2 (04:13→10:05)
[2020-09-03 06:25] LABS: Basophils # (auto) 0.01 K/uL (0-0.2); Basophils % (auto) 0.1 %; Hematocrit (blood only) 26.2 % (42-52); Hemoglobin 8.2 g/dL (14.0-18.0); Immature Granulocytes # (auto) 0.14 K/uL (0.00-0.02); Immature Granulocytes % (auto) 1.7 %; Lymphocytes # (auto) 0.54 K/uL (1.2-3.4); Lymphocytes % (auto) 6.5 %; Mean Corpuscular Hemoglobin 31.5 pg (25-34); Mean Corpuscular Hgb Conc 31.3 g/dL (32-36); Mean Corpuscular Volume 100.8 fL (80-100); Mean Platelet Volume 11.5 fL (7.4-10.4); Monocytes % (auto) 9.6 %; Neutrophils # (auto) 6.85 K/uL (1.4-6.5); Neutrophils % (auto) 82.1 %; Nucleated RBC # (auto) 0.04 K/uL (0-0); Nucleated RBC % (auto) 0.4 %; Platelet Count 285 K/uL (130-400); RDW Coefficient of Variation 18.2 % (11.5-14.5); White Blood Count 8.34 K/uL (4.8-10.8)
[2020-09-03 06:33] LABS: Prothrombin Time 10.5 Seconds (9.0-12.0)
[2020-09-03] MEDS: methylPREDNISolone 4 MG TAB PO SCH ×2 (06:33→15:10)
[2020-09-03] MEDS: oxyCODONE HCL IR 5 MG TAB (IMMEDIATE RELEASE) PO PRN (06:33)
[2020-09-03 06:53] LABS: Albumin Level 2.1 gm/dl (3.4-5.0); BUN Creatinine Ratio 18.3 (10-20); Calcium 9.1 mg/dl (8.5-10.1); Creatinine Clr Calc Pharmacy 81.3 ml/min; Est GFR (African American) 97.1; Est GFR (Non-African American) 83.8; Magnesium 1.9 mg/dl (1.8-2.4); Potassium 3.7 mmol/L (3.5-5.1)
[2020-09-03 06:56] LABS: Bilirubin,Total 2.4 mg/dl (0.2-1); Total Protein 6.1 gm/dl (6.4-8.2)
[2020-09-03] MEDS: LIDOCAINE 5% 1 PATCH TD SCH (08:33)
[2020-09-03] MEDS: METOPROLOL SUCC 50MG EXT REL TAB PO SCH (08:34)
[2020-09-03] MEDS: FINASTERIDE 5 MG TAB PO SCH (08:34)
[2020-09-03] MEDS: LANSOPRAZOLE 15 MG SOLTAB PO SCH (08:35)
[2020-09-03] MEDS: HEPARIN SOD 5,000 UNIT/0.5 ML VIAL SQ SCH (08:37)
[2020-09-03] MEDS: DICLOFENAC SOD 1% GEL 100 GM TUBE EXT SCH ×2 (08:38→13:08)
[2020-09-03] MEDS: FUROSEMIDE 20 MG in SYRINGE 0 ML IV SCH (09:05)
[2020-09-03] MEDS ORDERED: POTASSIUM CHLORIDE CRTAB 20 MEQ TABCR PO ONE (10:00)
[2020-09-03] MEDS ORDERED: KETOROLAC TROMETHAMINE 10 MG TABLET PO STA (12:41)
--- NOTE | 2020-09-03 13:11 | Discharge Summary ---
Date of Service September 03, 2020 Admission HPI Per Admitting Provider Patient is a 65-year-old male with a past medical history including erectile dysfunction, hypertension, gout, anemia, Achilles tendinitis, olecranon bursitis, and BPH with LUTS. He presents with symptoms as noted above. Principal Diagnosis Rhabdomyolysis, Drug-induced liver injury, Gout flare, Urinary retention with bilateral hydroureteronephrosis Discharge Exam Constitutional WD/WN, vitals as above Eyes + scleral abnormality (icterus); no conjunctival abnormality Neck trachea midline, no thyromegaly Respiratory normal respiratory effort, lungs clear to auscultation Cardiovascular Rate/Rhythm: regular rate and regular rhythm Heart Sounds: no murmur Extremities: + edema (much improved 1+ pitting edema feet bilaterally) Chest (Breasts) Chest: normal inspection of chest Gastrointestinal (Abdomen) normal bowel sounds, soft, nontender, no hepatosplenomegaly Musculoskeletal Spine: + paraspinal tenderness (right lower back, no masses) Extremities: + extremities abnormal to inspection (right elbow mild olecrenon swelling which is chronic with mild new erythema), no cyanosis and no clubbing Ankle: + skin erythema (right medial ankle,no further TTP) Skin no rashes, warm and dry + ecchymosis (a few small purple ecchymoses on cage bilaterally and rt upper back) and + erythema (rt ankle, rt elbow, left dorsal wrist) Neurologic moves all extremities and awake; no focal motor deficits Psychiatric A+Ox3, euthymic affect Genitourinary no penis abnormality (Brennan in place, draining slightly pink-tinged urine) Discharge Data Allergies Allergy/AdvReac Type Severity Reaction Status Date / Time No Known Allergies Allergy Mild Verified 08/26/20 20:22 Consultations 08/26/20 21:25 ED Decision to Admit Stat 08/26/20 23:20 Consult Case Management - Discharge Planning Routine 08/27/20 02:53 Consult Urology Routine 08/27/20 10:03 Consult Gastroenterology Routine Ordered Studies 08/26/20 19:41 CT abd pelvis wo con Stat CT head/brain wo con Stat 08/27/20 11:02 US duplex portal hepatic veins Routine US liver Routine CXR ECHO Hospital Course (1) Rhabdomyolysis: Elevated CK 12,578 upon admission which is now improved to 467 Likely related to statin use in the setting of antibiotic use causing drug- induced liver injury Hydrated with copious IV fluids but developing volume overload with worsening pitting edema in the feet--> dcd IVFs and gave IV lasix x 3 days--> improved but still present-->continue po lasix with KCl po x 1 more week and f/u with PCP Resolved (2) Abnormal LFTs: LFTs in a mixed hepatocellular/cholestatic picture Suspected drug-induced liver injury in setting of recent abx use (possibly Augmentin) along with statin use Also rhabdomyolysis contributing to elevated AST and ALT Anaplasmosis smear is negative, Anaplasma DNA PCR is negative Covid-19 is negative Hepatitis A, B and C are negative Q fever, Rickettsia titers, typhus fever titers all negative EBV titers suggestive of past infection but not acute infection LFTs again are now significantly improved, INR remains normal CT abdomen and pelvis shows hepatomegaly, and hepatic steatosis. Liver US with fatty liver, neg for PVT, gallbladder normal -continue to hold atorvastatin and allopurinol for now -appreciate GI consultation -Follow LFTs in 3 days as outpt -GI recommends if no continnued improvement over the next 1 to 2 weeks and LFTs, consider liver biopsy -needs outpt GI f/u -advised no APAP use, spare oxycodone use but repeatedly asks for opioids throughout entire hospital stay-only gave Rx for #10 tabs of oxycodone on discharge for his right lower back pain (3) Peripheral edema: secondary to hypoalbuminemia from liver issues and acute illness, also from copious volume resuscitation for rhabdo Now much improved since dc-ing IVFs and giving lasix continue po lasix x 1 week as above -encouraged increased po protein intake (4) Elevated troponin I level: Troponin 0 0.048 upon admission, then was WNL on repeat then mildly elevated again this morning at 0.05 He denies any chest pain. He has no cardiac history at all and reports that prior to 2 weeks ago, he could climb to the top of [place] and he could drag a deer out of the roberts without any chest pain or shortness of breath ECGs here with normal sinus rhythm and sinus tachycardia with minimal voltage criteria for LVH and age undetermined possible inferior infarct This is likely myocardial demand ischemia Echocardiogram normal (5) Hypertension: BPs are controlled Continue metoprolol succinate 50 mg p.o. daily (6) BPH w urinary obs/LUTS: BPH with LUTS/hydroureteronephrosis bilaterally/bladder distention-this seems to be an ongoing problem over the last year Brennan catheter placed in ED. No evidence of UTI on urinalysis Appreciate urology consultation-Increased tamsulosin from 0.4 to 0.8 mg p.o. at bedtime, continue Brennan catheter -Continue finasteride Maintain Brennan catheter for at least 10-14 days and follow-up in the urology office to discuss further options for extremely large prostate with obstruction (7) Hydroureteronephrosis: See above (8) Bladder distention: See above (9) Gout: with acute flare now on 09/02 in right ankle, right elbow, left wrist--> much improved by day of discharge with po toradol and started Medrol dose pack- finish out Medrol pack at home Hold allopurinol for now due to liver injury (10) Hepatic steatosis: Needs outpatient GI follow-up GI recommends obtaining FibroScan as an outpatient to evaluate for fibrosis/cirrhosis Encouraged weight loss and low carbohydrate diet (11) Hyperlipidemia: Pt states his high dose statin is related to ineffective cholesterol lowering with lower dose Holding for now due to drug-induced liver injury and rhabdomyolysis (12) Hypokalemia: due to Lasix use -replace with po KCl, replaced low magnesium as well follow CMP as outpt (13) Anemia: Hemoglobin is low at 8.2 but stable and has trended down from 12 in 01/2020 Normocytic No bleeding from anywhere. Likely a large component of frequent lab draws contributing bu also chronic disease and perhaps GI source No obvious bleeding anywhere normal iron studies, B12, folate---> anemia of chronic disease -needs outpt EGD/colonoscopy as per GI (14) Rib pain: He reports pain at the bottoms of the rib cage anteriorly bilaterally after having abdominal ultrasound -ongoing, lidocaine patch did not help, Voltaren gel did not help, tramadol only helps minimally Oxycodone helps but he seems to be taking it quite often Also with rhabdomyolysis may be contributing is directly +TTP on exam making this musculoskeletal He declines x-rays of the ribs to look for fractures Does have some mild ecchymosis over bilateral ribs perhaps from a fall or the abdominal US? Encouraged him to avoid excessive opioid use especially in the setting of liver injury. Offered heating pad and he declined. Advised that he get up and move around more as he feels perhaps the pain is worsened by being sedentary (15) Chronic neck pain: continue home tramadol and oxycodone prn severe pain-worsened pain by hospitalization (16) Hypophosphatemia: Replaced and now resolved (17) Hypomagnesemia: replaced and resolved (18) Sacroiliitis: acute on chronic R>L, typically goes to chiropractor -added lidocaine patch to lower back added FLexeril for muscle spasm and did not help--> discontinued continue oxycodone as needed sparingly tramadol prn hopefully will improve after discharge if goes to chiropractor and goes home to sleep in more comfortable bed (19) DVT prophylaxis: Heparin SQ Disposition-stable for dc to home with home health arranged Total Time Total Time Spent Total Time Spent (In Minutes): 40 min Total Time Includes: Examination of the Patient, Discharge Planning and Medication Reconciliation Discharge Plan Discharge Items Patient Disposition: Home - Self-Care Reason For Visit: RHABDOMYOLYSIS, ABNL LFT'S, ELEVATED TROPONIN Discharge Diagnosis: Rhabdomyolysis, Drug-induced liver injury, Gout flare, Urinary retention requiring Brennan catheter placement Condition on Discharge: Fair Activity: As commented below Lifting: Gradually increase as tolerated Bathing: No limitations Exercise/Sports: Gradually increase as tolerated Driving/Machine Use: No driving while taking pain medicine Weightbearing: Full weightbearing Non-emergency contact: Primary Care Provider, Sea Captain and Urologist Call non-emergency contact if: you have any medication questions and your symptoms worsen Follow-up/Referrals: Anthony Figueredo III, MD [Primary Care Provider] - (Follow up within 1-2 weeks.) Jefe Keith DO [Physician] - (Follow up within 1 week after discharge for your Brennan catheter ) Carlotta Singh MD [Hospitalist] - (Follow up within 1-2 weeks for your liver injury) Diet: Low Sodium (2gm) Diet Comment: increase protein in your diet Ambulatory Orders: Comprehensive Metabolic Panel (Routine) Timeframe: 3 Days Location: Determined by Patient Ordered By: Ivania Wright Addtl Attending Provider Instructions: You were admitted with rhabdomyolysis (excessive breakdown of muscle tissue) and drug-induced liver injury possibly secondary to antibiotic use along with your statin drug. Your liver is improving each day and you need to follow up with GI within 2 weeks. You are also anemic (low red blood cell count) and they are recommending an EGD and Colonoscopy after recovery. You need to have your liver blood tests checked in 3 days and the results will get sent to GI and your PCP. Please remain off your atorvastatin and allopurinol. Do not take any acetaminophen-containing products. For your gout, please finish out days 3-6 of the Medrol dose pack. For your back pain, you can take oxycodone very sparingly. This should not become a long term acute care registered nurse medication for you. For your urinary retention, you had a Brennan catheter placed. Continue to leave this in place and follow up with Urology within 1 week to discuss future treatment. If you have any problems with the catheter (pain, bleeding, urine not coming out, etc.), please contact Dr. Keith' office. Because of the swelling in your ankles and feet, you should take the furosemide (water pill) along with the potassium pill once daily x 1 week. Follow up with your PCP within 1-2 weeks. Pending Studies at Discharge: No Stand-Alone Forms: My [facility] Medications and DC Order Prescriptions: New diclofenac sodium [Voltaren] 1 % Gel 2 g EXT QID PRN (Reason: apply to area of back pain) Qty: 100 RF: 0 oxycodone 5 mg Tablet 5 mg PO Q6H PRN (Reason: severe pain) Qty: 10 RF: 0 lansoprazole [Prevacid SoluTab] 15 mg Tablet,Disintegrat, Delay Rel 15 mg PO QAM Qty: 30 RF: 0 furosemide [Lasix] 20 mg tablet 20 mg PO DAILY Qty: 7 RF: 0 potassium chloride 10 mEq tablet,ER particles/crystals 10 meq PO DAILY Qty: 7 RF: 0 methylprednisolone [Medrol (Federico)] 4 mg tablets,dose pack See Rx Instructions .ROUTE .COMPLEX Qty: 21 RF: 0 Continued cromolyn 4 % drops 2 drops OP QID PRN (Reason: allergy symptoms) Qty: 10 RF: 5 sildenafil [Viagra] 50 mg tablet 50 mg PO DAILY PRN (Reason: sexual activity) Qty: 10 RF: 5 tramadol 50 mg tablet 50 mg PO TID PRN (Reason: pain) Qty: 60 RF: 0 betamethasone acet,sod phos 6 mg/mL suspension 12 mg IA ONCE Qty: 2 RF: 0 finasteride 5 mg tablet 5 mg PO DAILY Qty: 30 RF: 11 metoprolol succinate 50 mg tablet extended release 24 hr 50 mg PO DAILY Qty: 90 RF: 3 cetirizine [Zyrtec] 10 mg tablet 10 mg PO DAILY PRN (Reason: allergy symptoms) Qty: 30 RF: 0 Changed tamsulosin 0.4 mg capsule 0.8 mg PO HS 30 Days Qty: 60 RF: 0 Discontinued atorvastatin 80 mg tablet 80 mg PO QPM Qty: 90 RF: 3 allopurinol 300 mg tablet 300 mg PO DAILY Qty: 30 RF: 11 hydrocodone-acetaminophen 5-325 mg tablet 2 tab PO DAILY PRN (Reason: pain) Qty: 15 RF: 0 methylprednisolone 4 mg tablet 4 mg PO DIRECTED RF: 0 Discharge Orders: Discharge Order (Routine); Ordered 09/03/20 Ordered By: Ivania Wright Admission Data Admit Date/Time: 08/26/20 22:38 Attending Provider: Ivania Wright Admit Provider: Humphrey Zamora Primary Care Provider: Anthony Figueredo III Other Providers: Humphrey Zamora ; Jefe Keith ; Carlotta Singh Coding Level of Care Code D/C Day Management >30 mins Diagnoses Rhabdomyolysis M62.82 Rhabdomyolysis type: non-traumatic Abnormal LFTs R94.5 Peripheral edema R60.9 Elevated troponin I level R77.8 Hypertension I10 BPH w urinary obs/LUTS N40.1; N13.8 Hydroureteronephrosis N13.30 Bladder distention N32.89 Gout M10.9 Hepatic steatosis K76.0 Hyperlipidemia E78.5 Hypokalemia E87.6 Anemia D64.9 Rib pain R07.81 Chronic neck pain M54.2; G89.29 Hypophosphatemia E83.39 Hypomagnesemia E83.42 Sacroiliitis M46.1 DVT prophylaxis Z29.9
[2020-09-03] MEDS ORDERED: methylPREDNISolone 4 MG TAB PO SCH (21:00)
[2020-09-04] MEDS ORDERED: methylPREDNISolone 4 MG TAB PO SCH (07:00)
[2020-09-05] MEDS ORDERED: methylPREDNISolone 4 MG TAB PO SCH (07:00)
[2020-09-06] MEDS ORDERED: methylPREDNISolone 4 MG TAB PO SCH (07:00)
[2020-09-07] MEDS ORDERED: methylPREDNISolone 4 MG TAB PO SCH (07:00)
== END 2020-09-03 15:40 | disposition home health service (06) | DRG 442 ==
LOC: ED 19:22 → SUATTDRO 22:38 → 2S 22:38 → 2W 08-30 17:32 → 3N 09-02 18:38